=== PATIENT | male | born 1950 | race Caucasian/White ===

== ENCOUNTER 2017-02-16 14:52 | Emergency (ER) | payer MEDICARE ==
--- NOTE | 2017-02-16 16:49 | CT ---
BRAIN CT WITHOUT IV CONTRAST: 02/16/17 HISTORY: 66-year-old male with altered mental status, anxiousness and nervousness, agitated. Atrophy and chronic white matter ischemic changes are noted. No mass or midline shift. No intra or e xtra-axial hemorrhage. IMPRESSION: No acute intracranial process. Stable from prior 11/16/16. No mass or bleed. POS: [facility]
[2017-02-16 17:06] LABS: Acetaminophen Less than 6.0 mcg/mL (10.0-30.0); Salicylate Less than 8.0 mg/dL (15.0-30.0)
[2017-02-16 17:07] LABS: ALT (SGPT) 25 U/L (8-55); AST (SGOT) 33 U/L (5-34); Alkaline Phosphatase 72 U/L (40-150); Anion Gap 14 mmol/L (10-20); BUN (Urea Nitrogen) 15 mg/dL (8.4-25.7); Bilirubin, Total 0.6 mg/dL (0.2-1.2); CK (CPK) 153 U/L (30-200); Calc. Creatinine Clearance 0 mL/min (70-130); Carbon Dioxide 27 mmol/L (23-31); Chloride 98 mmol/L (98-107); Estimated GFR-MDRD 26; Globulin 3.2 g/dL (2.4-3.5)
[2017-02-16 17:12] LABS: #Eosinphils 0.1 thou/uL (0.0-0.7); #Lymphocytes 1.7 thou/uL (1.20-3.40); #Monocytes 0.7 thou/uL (0.11-0.59); #Neutrophils 8.2 thou/uL (1.40-6.50); %Basophils 0.4 % (0.0-1.0); %Eosinophils 1.1 % (0.0-10.0); %Lymphocytes 15.7 % (21.0-51.0); %Monocytes 6.3 % (0.0-10.0); Hematocrit 40.3 % (42.0-52.0); Mean Platelet Volume 6.4 fL (7.4-10.4); Red Blood Cell (RBC) Count 4.38 mill/uL (4.70-6.10); White Blood Cell (WBC) Count 10.8 thou/uL (4.8-10.8)
--- NOTE | 2017-02-27 14:19 | EKG ---
Test Reason : Blood Pressure : / mmHG Vent. Rate : 070 BPM Atrial Rate : 070 BPM P-R Int : 154 ms QRS Dur : 104 ms QT Int : 486 ms P-R-T Axes : 001 -19 046 degrees QTc Int : 524 ms Normal sinus rhythm Prolonged QT Abnormal ECG Confirmed by CHRISTEN MCKAY ([id number]), desk editor GIOVANNI PANG ([id number]) on 02/27/2017 2:19:14 PM Referred By: Confirmed By:CHRISTEN MCKAY
== END 2017-02-16 17:20 | disposition home or self-care (01) ==
LOC: ERS 14:52
DX: I12.0 Hypertensive chronic kidney disease with stage 5 chronic kidney disease or end stage renal disease (principal); E11.22 Type 2 diabetes mellitus with diabetic chronic kidney disease; N18.6 End stage renal disease; Z99.2 Dependence on renal dialysis; F41.9 Anxiety disorder, unspecified; F32.9 Major depressive disorder, single episode, unspecified; Z87.891 Personal history of nicotine dependence; Z79.82 Long term (current) use of aspirin; Z79.899 Other long term (current) drug therapy
CPT/HCPCS: 36415; 70450; 80053; 80307; 82550; 85025; 93005

== ENCOUNTER 2017-04-19 15:03 | Emergency (ER) | payer MEDICARE ==
[2017-04-19] MEDS ORDERED: Acetaminophen/Codeine 30-300mg Tablet ONE (15:44)
--- NOTE | 2017-04-19 17:54 | RAD ---
RADIOGRAPH LEFT HIP THREE VIEWS: Date: 04-19-2017 Time: 3:48 p.m. History: 66-year-old male status post acute traumatic hip pain due to fall. FINDINGS: There is a Anastacio's type dynamic compression screw fixating an old, healed, left intertrochanteric f racture, with sclerosis of the medial aspect of the intertrochanteric region. No definite acute fract ure is identified, but the osteopenia could mask a mildly displaced or nondisplaced acute fracture. T he compression screw is attached to a lateral metallic side plate with three screws fixating to the s ubtrochanteric femoral proximal diaphysis. Old healed fracture deformity of the left inferior ramus i s noted. No dislocation of the hip. Femoral head contour is normal. No high grade degenerative change s of the hip joint. IMPRESSION: 1. No displaced acute fracture or dislocation identified. 2. Osteopenia. 3. Status post open reduction internal fixation and dynamic compression screw fixation of old intertr ochanteric fracture. 4. Old healed left inferior ramus fracture. POS: [facility]
[2017-04-19] MEDS ORDERED: Fentanyl 100 MCG/2 ML VIAL ONE (18:11)
--- NOTE | 2017-04-19 18:21 | RAD ---
AP PELVIS: Indication: Mechanical fall with left hip pain. Comparison: 04-19-17 FINDINGS: There is hip screw and slide plate transfixing a healed left intertrochanteric fracture. There is hea led deformity involving the left inferior pubic ramus. There is diffuse osteopenia. There is mild to moderate degenerative arthrosis of both hips. There are prominent degenerative changes involving the lower lumbar spine. IMPRESSION: No acute osseous abnormality. POS: [facility]
[2017-04-19 19:28] LABS: #Basophils 0.1 thou/uL (0.0-0.2); #Eosinphils 0.2 thou/uL (0.0-0.7); #Monocytes 0.8 thou/uL (0.11-0.59); #Neutrophils 7.6 thou/uL (1.40-6.50); %Basophils 0.5 % (0.0-1.0); %Eosinophils 1.9 % (0.0-10.0); %Lymphocytes 18.8 % (21.0-51.0); %Neutrophils 71.7 % (42.0-75.0); Hemoglobin 12.4 g/dL (14.0-18.0); Mean Corpuscular Hemoglobin 31.8 pg (27.0-31.0); Mean Corpuscular Volume 93.6 fl (80.0-94.0); Mean Platelet Volume 7.3 fL (7.4-10.4); Platelet Count 172 thou/uL (130-400); RBC Distribution Width 12.8 % (11.5-14.5); White Blood Cell (WBC) Count 10.6 thou/uL (4.8-10.8)
[2017-04-19 19:35] LABS: Bilirubin Negative (Negative); Blood, Urine Trace (Negative); Clarity CLEAR (Clear); Glucose, Urine (Dipstick) 100 mg/dL (Negative); Leukocyte Negative (Negative); Nitrite Negative (Negative); Protein, Urine (Dipstick) 300 mg/dL (Neg-Trace); Specific Gravity, Urine 1.008 (1.002-1.036); Urobilinogen 0.2 mg/dL (0.2-1.0); pH, Urine 7.5 (5.0-9.0)
--- NOTE | 2017-04-19 19:37 | CT ---
CT PELVIS WITHOUT CONTRAST: Indication: History of fall with left hip pain. FINDINGS: There is a minimally displaced comminuted fracture involving the left ischial tuberosity. There is he aled deformity involving the left inferior pubic ramus. There is healed fixated fracture deformity in volving the left intertrochanteric region. There is diffuse osteopenia. No additional fracture is karina dent. There is scattered vascular calcification. There is moderate distention of the bladder. Prostat e is enlarged measuring 5.9 cm. IMPRESSION: 1. Minimally displaced left ischial tuberosity fracture. 2. Diffuse osteopenia. 3. 4.8 cm lipoma overlying the right hip. 4. Prostate enlargement. POS: [facility]
[2017-04-19 19:41] LABS: Bacteria/HPF None Seen HPF (None Seen); Hyaline Casts/LPF 0-3 HYALINE CAST LPF (0-3 Hyaline); Pathc Cast-AUWi Flag 0.13 (0-2.49); Squamous Epithelial None Seen HPF (0-3); WBC/HPF None Seen HPF (0-3)
[2017-04-19 19:50] LABS: ALT (SGPT) 30 U/L (8-55); AST (SGOT) 28 U/L (5-34); Albumin 3.2 g/dL (3.4-4.8); Alkaline Phosphatase 66 U/L (40-150); Anion Gap 16 mmol/L (10-20); BUN (Urea Nitrogen) 54 mg/dL (8.4-25.7); Bilirubin, Total 0.6 mg/dL (0.2-1.2); Calc. Creatinine Clearance 0 mL/min (70-130); Calcium 8.9 mg/dL (7.8-10.44); Carbon Dioxide 22 mmol/L (23-31); Chloride 93 mmol/L (98-107); Estimated GFR-MDRD 12; Globulin 2.9 g/dL (2.4-3.5); Glucose 128 mg/dL (80-115); Potassium 3.7 mmol/L (3.5-5.1); Protein, Total 6.1 g/dL (5.8-8.1); Sodium 127 mmol/L (136-145)
[2017-04-19] MEDS ORDERED: Ketorolac Tromethamine 30 MG/ML VIAL ONE (20:25)
--- NOTE | 2017-04-24 15:36 | EKG ---
Test Reason : Blood Pressure : / mmHG Vent. Rate : 071 BPM Atrial Rate : 071 BPM P-R Int : 160 ms QRS Dur : 112 ms QT Int : 444 ms P-R-T Axes : 016 010 047 degrees QTc Int : 482 ms Normal sinus rhythm Incomplete left bundle branch block Prolonged QT Abnormal ECG Confirmed by HARMONY ORR, LAVERN ([id number]), industrial editor JESUS BRENNAN ([id number]) on 04/24/2017 3:35:49 PM Referred By: Confirmed By:LAVERN ANTUNEZ MD
== END 2017-04-19 21:36 ==
LOC: ERS 15:03
DX: S32.602A Unspecified fracture of left ischium, initial encounter for closed fracture (principal); I69.398 Other sequelae of cerebral infarction; B19.20 Unspecified viral hepatitis C without hepatic coma; I12.0 Hypertensive chronic kidney disease with stage 5 chronic kidney disease or end stage renal disease; E11.22 Type 2 diabetes mellitus with diabetic chronic kidney disease; N18.6 End stage renal disease; F41.9 Anxiety disorder, unspecified; F32.9 Major depressive disorder, single episode, unspecified; Z79.82 Long term (current) use of aspirin; Z79.899 Other long term (current) drug therapy; Z99.2 Dependence on renal dialysis; Z87.891 Personal history of nicotine dependence; Z79.4 Long term (current) use of insulin; W10.9XXA Fall (on) (from) unspecified stairs and steps, initial encounter; Y92.009 Unspecified place in unspecified non-institutional (private) residence as the place of occurrence of the external cause
CPT/HCPCS: 36415; 72170; 72192; 80053; 81003; 81015; 85025; 93005; 96372; J1885; J3010

== ENCOUNTER 2017-04-25 13:01 | Inpatient (IN) | payer MEDICARE ==
--- NOTE | 2017-04-25 14:41 | RAD ---
TWO VIEW RIGHT HIP: INDICATIONS: Fall with pain. Injury. FINDINGS: There is a subcapital, mildly displaced proximal right hip fracture. There is limited evaluation of the pelvis due to patient rotation. Osseous irregularity of the superior right pubic ramus is sugges scottie, which is age indeterminate. There is also deformity, which is chronic appearing, at the inferio r left pubic ramus, although limited in assessment. IMPRESSION: 1. Subcapital right hip fracture. 2. Osseous irregularity of the bilateral pubic bones, incompletely assessed on the basis of this exa m. Recommend dedicated imaging followup. POS: [facility]
--- NOTE | 2017-04-25 14:45 | RAD ---
FRONTAL VIEW PELVIS: HISTORY: Fall. Injury. Pain. FINDINGS: A subcapital, mildly displaced right hip fracture is present. There is chronic appearing osseous irr egularity at the inferior left pubic ramus, limited by patient rotation. There is irregularity overl barbie the right pubic ramus, although this may relate to superimposition of bowel content and is somew hat distorted by patient rotation. There is stable left hip hardware. The left sacroiliac joint is not reliably visualized. No obvious diastasis of the right sacroiliac joint. IMPRESSION: 1. Subcapital right hip fracture. 2. Subtle irregularity of the superior right pubic ramus, incompletely assessed, as discussed above. 3. Stable chronic left hemipelvic osseous deformities with hardware within the proximal left femur. POS: [facility]
--- NOTE | 2017-04-25 14:52 | RAD ---
TWO VIEW CHEST: Indication: Pre-operative evaluation. FINDINGS: There is prominent edema suggested. Bilateral pleural effusions are seen. There is an enlarged cardio mediastinal silhouette. IMPRESSION: Decompensated CHF. Recommend follow up resolution prior to surgery. POS: [facility]
[2017-04-25 14:55] LABS: Anion Gap 17 mmol/L (10-20); BUN (Urea Nitrogen) 38 mg/dL (8.4-25.7); Calc. Creatinine Clearance 0 mL/min (70-130); Calcium 8.7 mg/dL (7.8-10.44); Carbon Dioxide 24 mmol/L (23-31); Chloride 91 mmol/L (98-107); Estimated GFR-MDRD 14; Glucose 158 mg/dL (80-115); Potassium 4.9 mmol/L (3.5-5.1); Sodium 127 mmol/L (136-145)
[2017-04-25 15:15] LABS: #Lymphocytes 0.8 thou/uL (1.20-3.40); #Monocytes 0.7 thou/uL (0.11-0.59); #Neutrophils 9.1 thou/uL (1.40-6.50); %Basophils 0.1 % (0.0-1.0); %Eosinophils 0.2 % (0.0-10.0); %Lymphocytes 7.1 % (21.0-51.0); %Monocytes 6.3 % (0.0-10.0); %Neutrophils 86.3 % (42.0-75.0); Hemoglobin 10.9 g/dL (14.0-18.0); Mean Corpuscular HGB CONC 33.2 g/dL (32.0-36.0); Mean Corpuscular Hemoglobin 31.6 pg (27.0-31.0); Mean Corpuscular Volume 95.3 fl (80.0-94.0); Mean Platelet Volume 8.1 fL (7.4-10.4); Platelet Count 158 thou/uL (130-400); RBC Distribution Width 12.9 % (11.5-14.5); Red Blood Cell (RBC) Count 3.46 mill/uL (4.70-6.10); White Blood Cell (WBC) Count 10.5 thou/uL (4.8-10.8)
[2017-04-25] MEDS ORDERED: Dextrose 5% in Water 1,000 ML IV PRN (16:16)
[2017-04-25] MEDS ORDERED: Ondansetron HCl/PF 4 MG/2 ML Vial IVP PRN (16:16)
[2017-04-25] MEDS ORDERED: HYDROcodone/Acetaminophen 10/325 mg Tablet PO PRN ×2 (16:16)
[2017-04-25] MEDS ORDERED: Ondansetron ODT 4 MG TAB PO PRN (16:16)
[2017-04-25] MEDS ORDERED: Dextrose 50% Abboject 50 ML SYRINGE SLOW IVP PRN (16:16)
[2017-04-25] MEDS ORDERED: HYDROcodone/Acetaminophen 5/325 mg Tablet ONE (16:18)
[2017-04-25] MEDS ORDERED: HYDROcodone/Acetaminophen 10/325 mg Tablet ONE ×2 (16:21)
[2017-04-25] MEDS ORDERED: Morphine 4 MG/ML VIAL SLOW IVP PRN (16:30)
[2017-04-25] MEDS ORDERED: Acetaminophen 1,000 MG in Premix Bag 1 BAG IVPB SCH ×2 (18:00→21:00)
--- NOTE | 2017-04-25 19:29 | HP ---
DATE OF ADMISSION: 04/25/2017 REQUESTING PHYSICIAN: Dr. Moreno. ATTENDING SURGEON: Dr. Xavier. CONSULTATION: Orthopedics, Dr. Lange. HISTORY OF PRESENT ILLNESS: The patient is a 66-year-old man who currently is at the [facility] for the past week after he had a fall and sustained a left ischial tuberosity fracture. The patient reportedly last night had a witnessed fall in which he landed on his right side. He was able to get himself back into bed without any assistance. This morning had significant more pain and was evaluated with a radiograph which showed a right femoral neck fracture at which time he was cleary sported to our facility for evaluation by our service and Orthopedics. The patient denied loss of co nsciousness or hitting his head. He has no other complaints other than he now has bilateral hip pain . ALLERGIES: MORPHINE, the patient is unsure of reaction, but he has received morphine in the past wit hout any issues. CURRENT MEDICATIONS: NovoLog, FlexPen, hydralazine, atorvastatin, aspirin, clonidine, quetiapine, bu spirone, gabapentin, amlodipine, latanoprost ophthalmology drops, lamotrigine, mirtazapine, propranol ol, Radnor, Flomax, Renvela, senna, lactulose, vitamin D, duloxetine, fenofibrate. 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 PAST SURGICAL HISTORY: The patient had open reduction internal fixation of right humerus and has had surgery on his left hip. SOCIAL HISTORY: The patient reports drinking rarely, smokes marijuana and is a former tobacco user. REVIEW OF SYSTEMS: A 10-point review of systems is negative unless otherwise stated. PHYSICAL EXAMINATION: VITAL SIGNS: Blood pressure 108/56, respirations 18, oxygen saturation is 94% on 2 liters via nasal cannula, pulse 72, temperature is 98.4. GENERAL: The patient is resting comfortably, he is actually sleeping. He will open his eyes and ans wers questions to verbal stimuli, follows simple commands. The patient does have slurred speech cons istent with his previous CVA and noted deficit. HEENT: Head is normocephalic, atraumatic. Eyes: Extraocular motion intact. PERRLA bilaterally. E ars are atraumatic without discharge. Nose is atraumatic without discharge. Oropharynx is clear. NECK: Nontender. Trachea is midline. No JVD. CHEST: Clear to auscultation bilaterally. HEART: Regular rate and rhythm. ABDOMEN: Soft, flat, nontender with active bowel sounds. Pelvis is stable with tenderness to palpat ion to bilateral hips, right greater than left. EXTREMITIES: Neurovascularly intact x4. BACK: By report, it is nontender and atraumatic. LABORATORY DATA: White blood cell count 10.5, hemoglobin 10.9, hematocrit 32.9, platelets 158. Sodi um 127, potassium 4.9, chloride 91, carbon dioxide 24, BUN 38, creatinine 4.39, glucose 158. RADIOGRAPHIC REPORTS: 1. AP chest shows decompensated CHF with bilateral pleural effusions. AP pelvis shows subcapital ri ght hip fracture. 2. Subtle irregularity of the right superior pubic rami fracture. 3. Stable chronic left hemipelvis, osseous deformity with hardware within the proximal left femur, 2 views of the right hip show a subcapital right hip fracture, #2 osseous regularity of the bilateral pubic bones. ASSESSMENT AND PLAN: 1. Status post ground level fall with a delayed presentation. 2. Right subcapital hip fracture. 3. End-stage renal disease. 4. Fluid overload, congestive heart failure, requiring dialysis. Plan will be to admit the patient to the surgical floor. We will discuss with Dr. Jaquez the possibilit y of getting him dialyzed today and we will plan surgery at that time. The evaluation and examinatio n were discussed and the patient was evaluated with Dr. Xavier.
[2017-04-25] MEDS: Morphine 4 MG/ML VIAL SLOW IVP PRN (20:26)
[2017-04-25] MEDS: Sodium Chloride 0.9% 1,000 ML IV SCH (20:26)
[2017-04-25] MEDS ORDERED: Famotidine 20 MG TAB PO SCH (21:00)
--- NOTE | 2017-04-25 23:47 | PRG ---
DATE OF SERVICE: 04/25/2017 SUBJECTIVE: Mr. Barron is hospital day #1 for admission after mechanical fall. He was found to hav e a right hip fracture. This patient was admitted earlier by our team. He has recently returned fro m dialysis. He is hemodynamically stable. He vocalized no complaint. RN at the bed side states isidro t there is some report of patient having tested positive for the flu; however, there is no evidence o f this in [facility]. The patient is afebrile at this time. He denies any signs or symptoms of the fl u, specifically fevers, chills, or body aches. We will continue to monitor. OBJECTIVE: VITAL SIGNS: Reviewed and stable. RESPIRATORY: Breathing is nonlabored. GENERAL: The patient is resting in bed, in no acute distress. ASSESSMENT AND PLAN: As documented in history and physical. Continue care as ordered. Continue to monitor.
[2017-04-25 23:57] VITALS: BMI 20.2
[2017-04-26] MEDS ORDERED: Acetaminophen 1,000 MG in Premix Bag 1 BAG IVPB SCH (03:00)
[2017-04-26] MEDS: Morphine 4 MG/ML VIAL SLOW IVP PRN (03:04)
[2017-04-26] MEDS: Sodium Chloride 0.9% 1,000 ML IV SCH ×2 (03:10→16:12)
[2017-04-26 05:35] LABS: #Monocytes 0.5 thou/uL (0.11-0.59); #Neutrophils 7.6 thou/uL (1.40-6.50); %Basophils 0.1 % (0.0-1.0); %Eosinophils 0.2 % (0.0-10.0); %Lymphocytes 10.7 % (21.0-51.0); %Monocytes 5.3 % (0.0-10.0); %Neutrophils 83.6 % (42.0-75.0); Hemoglobin 10.8 g/dL (14.0-18.0); Mean Corpuscular HGB CONC 32.2 g/dL (32.0-36.0); Mean Corpuscular Hemoglobin 30.9 pg (27.0-31.0); Mean Corpuscular Volume 95.7 fl (80.0-94.0); Mean Platelet Volume 7.9 fL (7.4-10.4); Platelet Count 178 thou/uL (130-400); RBC Distribution Width 12.9 % (11.5-14.5); Red Blood Cell (RBC) Count 3.49 mill/uL (4.70-6.10); White Blood Cell (WBC) Count 9.1 thou/uL (4.8-10.8)
--- NOTE | 2017-04-26 05:41 | CON ---
DATE OF CONSULTATION: 04/25/2017 CONSULTING PHYSICIAN: Mario Lopes M.D. REQUESTING PHYSICIAN: Rafael Xavier DO REASON FOR CONSULTATION: The need for hemodialysis. IMPRESSION: 1. End-stage renal disease, hemodialysis dependent, Wednesday, , and Wednesday schedule, dialyz ed yesterday, however, features on presentation suggestive of residual pulmonary congestion as well a s the need for consultation for possible hemodialysis prior to surgical intervention. 2. Right hip fracture status post fall. PLAN: 1. The patient is normally on a Wednesday, , Wednesday schedule. However, in order to optimize this patient for possible surgical intervention tomorrow, we will go ahead and do a modified hemodia lysis on this patient and lay emphasis on ultrafiltration to improve the pulmonary status. 2. To revert back to his normal schedule of Wednesday, , Wednesday. 3. Further management to be dependent on the clinical course. HISTORY OF PRESENT ILLNESS: History is that of a 66-year-old gentleman who is currently rehabilitati ng at [facility] post fall at home during which he sustained ischial tuberosity fracture. patient was dialyzed yesterday; however, later in the day, the patient did sustain a witnessed fall for which the patient relatively did okay, but this morning was noted with increasing pain following presentation in the ER where a right femoral neck fracture was diagnosed. The patient on further ev aluation by the Trauma team was noted to have evidence of pulmonary congestion and the need for possi ble surgical intervention tomorrow necessitated the renal consultation for possible hemodialysis. PAST MEDICAL HISTORY: Significant for end-stage renal disease, hemodialysis dependent, fracture seco ndary to fall, hepatitis C, diabetes, hypertension, anxiety, and depression. ALLERGIES: MORPHINE. MEDICATIONS: Have been reviewed and as documented on [employer]. FAMILY HISTORY: Nothing significantly related to the presenting illness. SOCIAL HISTORY: Remote tobacco use. Smokes marijuana, no alcohol or illicit drug use. PHYSICAL EXAMINATION: GENERAL: The patient was found to be in some physical distress. VITAL SIGNS: Noted with the following vital signs: Blood pressure 108/56, respiratory rate of 18, O 2 sat 94%, pulse 70. HEENT: Unremarkable. Moist oral mucosa. NECK: Supple. No conjunctival injection or icterus. CARDIOVASCULAR SYSTEM: First and second heart sounds were heard. RESPIRATORY SYSTEM: Clear to auscultation. DIGESTIVE SYSTEM: Revealed a benign abdomen with positive bowel sounds. EXTREMITIES: No peripheral edema. SKIN: No new gross rash. LYMPHATICS: No peripheral lymphadenopathy. SUMMARY: A 66-year-old gentleman who presented here status post a mechanical fall. Thank you for this consultation. We will follow with you.
[2017-04-26 06:04] LABS: Anion Gap 19 mmol/L (10-20); BUN (Urea Nitrogen) 47 mg/dL (8.4-25.7); Calc. Creatinine Clearance 14 mL/min (70-130); Calcium 8.7 mg/dL (7.8-10.44); Carbon Dioxide 22 mmol/L (23-31); Chloride 91 mmol/L (98-107); Estimated GFR-MDRD 12; Glucose 130 mg/dL (80-115); Magnesium 2.2 mg/dL (1.6-2.6); Phosphorus 4.3 mg/dL (2.3-4.7); Potassium 4.6 mmol/L (3.5-5.1); Sodium 127 mmol/L (136-145)
[2017-04-26] MEDS ORDERED: CEFAZOLIN/Water 2 GM/20 ML SYRINGE SLOW IVP SCH (06:30)
[2017-04-26] MEDS ORDERED: Fentanyl 100 MCG/2 ML VIAL ONE ×2 (13:18)
[2017-04-26] MEDS ORDERED: Midazolam HCl 2 mg/2 ml Vial ONE (13:18)
[2017-04-26] MEDS ORDERED: Neomycin-Polymyxin 1 ML AMP ONE ×2 (13:19)
--- NOTE | 2017-04-26 13:21 | CON ---
DATE OF CONSULTATION: 04/26/2017 HISTORY OF PRESENT ILLNESS: Mr. Barron is a 76-year-old white male who had a fall and sustained a l eft ischial tuberosity fracture and was [facility]. The patient had a fall prior to admission and had immediate pain in the right hip region. The patient denied lo ss of consciousness or hitting his head. He has no neurologic complaints in the right lower extremit y. He was brought to the emergency room and x-rays revealed a displaced subcapital femoral neck frac ture of the right hip. ALLERGIES: MORPHINE. MEDICATIONS: NovoLog FlexPen, atorvastatin, aspirin, clonidine, quetiapine, buspirone, gabapentin, a mlodipine, latanoprost ophthalmic drops, propranolol, Casar, Flomax, Renvela, Senna, Lactulose, vitam in D, fluoxetine, fenofibrate. PAST MEDICAL HISTORY: The patient has had a stroke. There is a history of hepatitis C. He had a fr acture of the left hip required ORIF, fracture of the right shoulder, diabetes, hypertension, end-sta ge renal disease. The patient does dialysis 3 times a week. Anxiety and depression. PHYSICAL EXAMINATION: GENERAL: The patient is alert and oriented x3, able to participate with the examination. VITAL SIGNS: He is afebrile. Vital signs are stable. EXTREMITIES: The patient has pain with any attempted movement of the right hip. The right lower ext remity is neurovascularly intact. I reviewed the x-rays. The patient does have a displaced subcapital femoral neck fracture of the rig ht hip. PLAN: The patient will require proximal femoral replacement. We plan on using a bipolar prosthesis to the right hip. The potential risks with the condition of surgery include, but are not limited to infection, bleeding, pain, damage to blood vessels or nerves, loosening or instability of the prosthe sis. The patient may require additional surgery. The patient agrees.
[2017-04-26] MEDS ORDERED: CEFAZOLIN/Water 2 GM/20 ML SYRINGE ONE (13:25)
--- NOTE | 2017-04-26 14:32 | PRG ---
DATE OF SERVICE: 04/26/2017 SUBJECTIVE: The patient is hospital day #2 status post ground level fall in which he sustained a rig ht subcapital hip fracture. The patient has been n.p.o. since midnight and is awaiting surgery. The re was an issue, currently the patient refuses to sign his consent for surgery. He will give verbal consent, but he will not sign the paper consent unless his primary care doctor, Dr. Sinclair tells him h e needs to sign it. This was discussed with Dr. Lange and the nurses will continue to try to conta ct Dr. Sinclair to see if he can assist us in this endeavor. Otherwise, the patient has no complaints. His pain is currently controlled. The patient underwent a modified dialysis yesterday per our request to Nephrology in order to lessen the fluid load on the patient's system. Specifically, his chest x-ray last night showed some pulmona ry congestion. It should be able to optimize his surgical outcome and also allow him to continue on his normal dialysis regimen. PHYSICAL EXAMINATION: VITAL SIGNS: Temperature is 97.8, heart rate 96, blood pressure 132/64, respirations 16, oxygen satu ration is 96% on room air. GENERAL: The patient is awake, alert, and appears to be oriented, though he is definitely not wantin g to sign his paperwork. His [place] coma scale is 15. HEENT: Unremarkable other than his baseline slurred speech secondary to CVA. NECK: Nontender. Trachea is midline. No JVD. CHEST: Clear to auscultation bilaterally. HEART: Regular rate and rhythm. ABDOMEN: Soft, flat, and nontender. EXTREMITIES: Neurovascularly intact x4. Patient has minimal peripheral edema. LABORATORY DATA AND IMAGING DATA: White blood cell count 9.1, hemoglobin 10.8, hematocrit 33.4, plat elets 178. Chemistry: Sodium 127, potassium 4.6, chloride 191, CO2 22, BUN 47, creatinine 4.91, glu cose 130, magnesium 2.2, phosphorus 4.3. There are no radiographs to review this morning. ASSESSMENT AND PLAN: 1. Status post ground level fall. 2. Right hip fracture. 3. Hyponatremia. 4. Chronic renal disease. Plan will be continue dialysis regimen. We will attempt to get consent for his surgical procedure. Otherwise, we will continue pain control and attempt physical and occupational therapy per ortho teresa mmendations.
[2017-04-26] MEDS ORDERED: Bupivacaine/Epinephrine 0.25% 30 ML VIAL ONE (14:47)
[2017-04-26] MEDS ORDERED: Promethazine HCl 25 MG/ML VIAL IM PRN (15:07)
[2017-04-26] MEDS ORDERED: Promethazine HCl 25 MG/ML VIAL SLOW IVP PRN (15:07)
[2017-04-26] MEDS ORDERED: Ondansetron HCl/PF 4 MG/2 ML Vial IVP PRN ×2 (15:07→16:41)
[2017-04-26] MEDS: Famotidine 20 MG TAB PO SCH (16:12)
[2017-04-26] MEDS ORDERED: HYDROcodone/Acetaminophen 10/325 mg Tablet PO PRN (16:40)
[2017-04-26] MEDS ORDERED: Milk Of Magnesia 30 ML UDCUP PO PRN (16:41)
[2017-04-26] MEDS ORDERED: Fleet Enema 133 ML BOT PR PRN (16:41)
[2017-04-26] MEDS ORDERED: Acetaminophen 325 MG TAB PO PRN (16:41)
[2017-04-26] MEDS ORDERED: Cepastat Lozenges 1 LOZ PO PRN (16:41)
[2017-04-26] MEDS ORDERED: Bisacodyl 10 MG SUPP PR PRN (16:41)
[2017-04-26] MEDS ORDERED: Ondansetron ODT 4 MG TAB PO PRN (16:41)
[2017-04-26] MEDS ORDERED: Fentanyl 100 MCG/2 ML VIAL SLOW IVP PRN (16:41)
[2017-04-26] MEDS ORDERED: PHENYLEPHRINE-NS 100 MCG/ML 10 ML SYRINGE ONE (16:42)
[2017-04-26] MEDS ORDERED: Lidocaine 1% PF 5 ML VIAL ONE (16:42)
[2017-04-26] MEDS ORDERED: PROPOFOL 200 MG/20 ML VIAL ONE (16:42)
[2017-04-26] MEDS ORDERED: Glycopyrrolate 0.2 MG/ML 5 ML SYRINGE ONE (16:42)
[2017-04-26 18:13] LABS: Actual Bicarbonate (HCO3a) 23.2 mEq/L (22-26); Base Excess (BEa) -2.9 mEq/L (0 (+/-) 2.5); CO2 Tension 45.8 mmHg (35.0-45.0); Calcium, Ionized 1.1 mmol/L (1.12-1.30); Hematocrit-ABG 36.8 % (42.0-52.0); Hemoglobin (Hb) 10.7 g/dL (14.0-18.0); O2 Tension (PaO2) 80.9 mmHg (80.0-100.0); pH, Arterial 7.32 (7.35-7.45)
[2017-04-26 18:14] LABS: Puncture Site LRA
--- NOTE | 2017-04-26 20:36 | OP ---
DATE OF OPERATION: 04/26/2017 PREOPERATIVE DIAGNOSIS: Displaced subcapital femoral neck fracture of the right hip. POSTOPERATIVE DIAGNOSIS: Displaced subcapital femoral neck fracture of the right hip. PROCEDURE: Proximal femoral replacement utilizing a bipolar prosthesis. SURGEON: Narendra Lange M.D. ANESTHESIA: General. TECHNIQUE: The patient was given preoperative IV antibiotics, taken to the operating room, placed in the supine position. Satisfactory general anesthesia was performed. The patient was then placed in the left lateral decubitus position. All bony prominences were well-padded and the right hip and lo wer extremity were sterilely prepped and draped in the usual fashion. Longitudinal incision was made on the lateral aspect of the hip, centered over the greater trochanter, and anterolateral approach w as made to the hip joint. The anterior capsule was excised and an oscillating saw was used to make a dditional cut on the femoral neck that was completely broken off and displaced from the femoral head. The femoral head was then removed. It was measured and it was 54 mm in diameter. The posterior ca psule was divided. The loose bony fragments were removed from the acetabulum and around the hip join t. The wound was then copiously irrigated with antibiotic solution using the high-speed comfort filler. The proximal aspect of the femur was then prepared using first a box osteotome and Charnley reamer, t hen lateralizing. industrial recruiter was used up to a size 6 as measured by the [employer] instrumentat ion. The proximal femur was then rasped up to initially a size 5, this was left in place, and calcar reamer was utilized and different length necks were used, the best neck length was +1.5 with a 28 mm head and a 54 mm bipolar. This provided good church of leg length and good stability when ady ving the trial though the proximal aspect of the femur was not well fitted with the 5 and 6 was there fore inserted and again reduced. It had much better stability and good maintenance of leg length. A gain, the wound was irrigated. The trials were removed. The Synthes size 6 [place] femoral stem whic h was basic press fit was inserted into the proximal femur at excellent fit. The +1.5 neck with the 28 mm femoral head and then the 54 mm bipolar head was snapped in position. It was then reduced into the acetabulum and again placed through a range of motion with excellent stability and range of waldemar on. The wound again was copiously irrigated and then closed using #1 Vicryl for the anterior fibers of the abductor muscle, #1 Vicryl for the iliotibial band and subcutaneous tissue, and the skin was c losed with skin jomar. Sterile dressing was applied. The patient eventually was then transferred to the recovery room in stable condition. ESTIMATED BLOOD LOSS: 200 mL COMPLICATIONS: None.
[2017-04-26] MEDS: Acetaminophen 500 MG TAB PO SCH (21:27)
[2017-04-26] MEDS: cloNIDine 0.1 MG TAB PO SCH (21:28)
[2017-04-26] MEDS: Aspirin 325 MG TAB PO SCH (21:29)
[2017-04-26] MEDS: Gabapentin 300 MG CAP PO SCH (21:29)
[2017-04-26] MEDS: Senokot S 8.6-50 MG TAB PO SCH (21:29)
[2017-04-26] MEDS: busPIRone HCl 5 MG TAB PO SCH (21:29)
[2017-04-26] MEDS: Mirtazapine 15 MG TAB PO SCH (21:30)
[2017-04-26] MEDS: hydrALAZINE 25 MG TAB PO SCH (21:31)
[2017-04-26] MEDS: Ferrous Gluconate 324 MG TAB PO SCH (21:31)
--- NOTE | 2017-04-26 21:32 | PRG ---
DATE OF SERVICE: 04/26/2017 SUBJECTIVE: Kyle Barron is a 66-year-old gentleman status post mechanical fall, postop day 0 hip fracture repair. He has multiple medical comorbidities. He has recently returned to the surgical fl oor from the anesthesia care unit. He vocalized no complaint at this time. PHYSICAL EXAMINATION: VITAL SIGNS: Reviewed and stable. The patient is on 2 liters nasal cannula. Last oxygen saturation 98%. He is resting in bed in no acute distress. LUNGS: Breathing is nonlabored. ASSESSMENT AND PLAN: As documented in daily progress note. Continue care as ordered. Continue to m onitor. Postoperative pain management, PT/OT, and eventual disposition. HD per Nephrology.
[2017-04-26] MEDS: CEFAZOLIN/Water 2 GM/20 ML SYRINGE SLOW IVP SCH (21:33)
[2017-04-26] MEDS: Latanoprost 0.005% Ophth Soln 2.5 ml Bottle EA EYE SCH (22:15)
[2017-04-27] MEDS: traMADol HCl 50 MG TAB PO PRN ×3 (00:32→23:44)
[2017-04-27] MEDS: Acetaminophen 500 MG TAB PO SCH ×4 (03:25→21:12)
[2017-04-27] MEDS: CEFAZOLIN/Water 2 GM/20 ML SYRINGE SLOW IVP SCH (05:59)
[2017-04-27 06:59] LABS: Mean Corpuscular HGB CONC 32.1 g/dL (32.0-36.0); Mean Corpuscular Hemoglobin 30.4 pg (27.0-31.0); Mean Corpuscular Volume 94.9 fl (80.0-94.0); Mean Platelet Volume 7.7 fL (7.4-10.4); Platelet Count 196 thou/uL (130-400); Red Blood Cell (RBC) Count 3.29 mill/uL (4.70-6.10); White Blood Cell (WBC) Count 6.5 thou/uL (4.8-10.8)
[2017-04-27 07:20] LABS: Anion Gap 16 mmol/L (10-20); BUN (Urea Nitrogen) 55 mg/dL (8.4-25.7); Calc. Creatinine Clearance 12 mL/min (70-130); Calcium 8.5 mg/dL (7.8-10.44); Carbon Dioxide 23 mmol/L (23-31); Chloride 93 mmol/L (98-107); Estimated GFR-MDRD 9; Glucose 100 mg/dL (80-115); Potassium 4.5 mmol/L (3.5-5.1); Sodium 127 mmol/L (136-145)
[2017-04-27] MEDS: Sevelamer Carbonate 800 MG TAB PO SCH ×3 (08:34→17:09)
[2017-04-27] MEDS ORDERED: Senokot 8.6 MG TAB PO SCH (09:00)
[2017-04-27] MEDS: Ferrous Gluconate 324 MG TAB PO SCH ×2 (09:58→21:08)
[2017-04-27] MEDS: cloNIDine 0.1 MG TAB PO SCH ×2 (09:58→21:08)
[2017-04-27] MEDS: Aspirin 325 MG TAB PO SCH ×2 (09:58→21:06)
[2017-04-27] MEDS: busPIRone HCl 5 MG TAB PO SCH ×2 (09:58→21:07)
[2017-04-27] MEDS: Senokot S 8.6-50 MG TAB PO SCH ×2 (09:59→21:11)
[2017-04-27] MEDS: Gabapentin 300 MG CAP PO SCH ×2 (09:59→21:08)
[2017-04-27] MEDS: hydrALAZINE 25 MG TAB PO SCH ×3 (09:59→21:09)
[2017-04-27] MEDS: Amlodipine 10 MG TAB PO SCH (13:59)
[2017-04-27] MEDS: Atorvastatin Calcium 20 MG TAB PO SCH (14:00)
[2017-04-27] MEDS: Fenofibrate 48 MG TAB PO SCH (14:01)
[2017-04-27] MEDS: Famotidine 20 MG TAB PO SCH (14:01)
[2017-04-27] MEDS: DULoxetine 30 MG CAP PO SCH (14:01)
[2017-04-27] MEDS: HumaLOG 300 UNITS/3 ML VIAL SC SCH (14:01)
[2017-04-27] MEDS: lamoTRIgine 25 MG TAB PO SCH (14:02)
[2017-04-27] MEDS: Multivitamin W/ Minerals 1 TAB PO SCH (14:02)
[2017-04-27] MEDS: Tamsulosin HCl 0.4 MG CAP PO SCH (14:02)
[2017-04-27] MEDS: Insulin Regular 300 UNITS/3 ML VIAL SC PRN (17:09)
--- NOTE | 2017-04-27 19:02 | PRG ---
DATE OF SERVICE: 04/27/2017 ATTENDING PHYSICIAN: Rafael Xavier D.O. SUBJECTIVE: The patient is postoperative day #1 status post ORIF of right hip fracture. He has been stable on the surgical floor. He received his normal scheduled dialysis today. He has had a bedside sitter due to impulsiveness. OBJECTIVE: VITAL SIGNS: Temperature 98.8, pulse 85, blood pressure 133/60, respirations 16 , O2 sat 95% on room air. CONSTITUTIONAL: Sitting up in bed in no acute distress, appropriately interactive. HEENT: Atraumatic, normocephalic. PULMONARY: Bilateral breath sounds clear to auscultation. RESPIRATORY: Even unlabored. CARDIOVASCULAR: Regular rate and rhythm. ABDOMEN: Soft, nontender, and nondistended. EXTREMITIES: Dressing in place to right hip. Moves all extremities. Cap refill brisk. NEUROLOGIC: GCS 15. Answers questions correctly. Still with some inappropriate words at times and impulsive behavior. ASSESSMENT: 1. Status post ground level fall. 2. Right hip fracture. 3. Hyponatremia. 4. End-stage renal disease on dialysis. 5. Status post open reduction and internal fixation of right hip. PLAN: 1. Continue mobilizing with physical and occupational therapy. 2. Continue recommendations per Nephrology Service. 3. Repeat labs in a.m. The patient was discussed with Dr. Xavier who agrees with the assessment and plan. [facility]
--- NOTE | 2017-04-27 20:42 | PRG ---
DATE OF SERVICE: 04/27/2017 SUBJECTIVE: The patient is seen and examined with no new complaint noted. PHYSICAL EXAMINATION: VITAL SIGNS: Afebrile with temperature 98.8, pulse 85, respiratory rate 16, O2 sat 95%, blood pressu re 132/60. HEENT: Unremarkable with moist oral mucosa. Neck is supple. No conjunctival injection or icterus. CARDIOVASCULAR: First and second heart sounds were heard. RESPIRATORY: Clear to auscultation. DIGESTIVE: Revealed a benign abdomen with positive bowel sounds. EXTREMITIES: No peripheral edema. LABORATORY INVESTIGATION: Showed sodium of 127, creatinine 6.11. IMPRESSION: 1. End-stage renal disease, on hemodialysis. 2. Hyponatremia. 3. Hypervolemia. PLAN: 1. Patient dialyzed today with ultrafiltration of about 5 liters. 2. Further management including pain management is per the primary team.
[2017-04-27] MEDS: Latanoprost 0.005% Ophth Soln 2.5 ml Bottle EA EYE SCH (21:10)
[2017-04-27] MEDS: Mirtazapine 15 MG TAB PO SCH (21:10)
[2017-04-28] MEDS: Acetaminophen 500 MG TAB PO SCH ×4 (03:51→21:11)
[2017-04-28 06:01] LABS: Hemoglobin 10.6 g/dL (14.0-18.0); Mean Corpuscular HGB CONC 33.6 g/dL (32.0-36.0); Mean Corpuscular Hemoglobin 31.7 pg (27.0-31.0); Mean Corpuscular Volume 94.5 fl (80.0-94.0); Mean Platelet Volume 7.2 fL (7.4-10.4); Platelet Count 209 thou/uL (130-400); RBC Distribution Width 12.6 % (11.5-14.5); Red Blood Cell (RBC) Count 3.33 mill/uL (4.70-6.10); White Blood Cell (WBC) Count 7.2 thou/uL (4.8-10.8)
[2017-04-28 06:16] LABS: Anion Gap 14 mmol/L (10-20); BUN (Urea Nitrogen) 27 mg/dL (8.4-25.7); Calc. Creatinine Clearance 18 mL/min (70-130); Calcium 8.2 mg/dL (7.8-10.44); Carbon Dioxide 24 mmol/L (23-31); Chloride 92 mmol/L (98-107); Estimated GFR-MDRD 16; Glucose 168 mg/dL (80-115); Potassium 4.3 mmol/L (3.5-5.1); Sodium 126 mmol/L (136-145)
[2017-04-28] MEDS: Sevelamer Carbonate 800 MG TAB PO SCH ×3 (07:19→16:19)
[2017-04-28] MEDS: Amlodipine 10 MG TAB PO SCH (09:47)
[2017-04-28] MEDS: Atorvastatin Calcium 20 MG TAB PO SCH (09:48)
[2017-04-28] MEDS: Aspirin 325 MG TAB PO SCH ×2 (09:48→21:11)
[2017-04-28] MEDS: DULoxetine 30 MG CAP PO SCH (09:49)
[2017-04-28] MEDS: Senokot S 8.6-50 MG TAB PO SCH ×2 (09:49→21:10)
[2017-04-28] MEDS: cloNIDine 0.1 MG TAB PO SCH ×2 (09:49→21:09)
[2017-04-28] MEDS: Famotidine 20 MG TAB PO SCH (09:49)
[2017-04-28] MEDS: hydrALAZINE 25 MG TAB PO SCH ×3 (09:50→21:08)
[2017-04-28] MEDS: Multivitamin W/ Minerals 1 TAB PO SCH (09:50)
[2017-04-28] MEDS: Fenofibrate 48 MG TAB PO SCH (09:50)
[2017-04-28] MEDS: Gabapentin 300 MG CAP PO SCH ×2 (09:50→21:09)
[2017-04-28] MEDS: lamoTRIgine 25 MG TAB PO SCH (09:50)
[2017-04-28] MEDS: Ferrous Gluconate 324 MG TAB PO SCH ×2 (09:50→21:10)
[2017-04-28] MEDS: Tamsulosin HCl 0.4 MG CAP PO SCH (09:50)
[2017-04-28] MEDS: Insulin Regular 300 UNITS/3 ML VIAL SC PRN (09:51)
[2017-04-28] MEDS: HumaLOG 300 UNITS/3 ML VIAL SC SCH (10:03)
[2017-04-28] MEDS: busPIRone HCl 5 MG TAB PO SCH ×2 (11:12→21:09)
--- NOTE | 2017-04-28 13:02 | PRG ---
DATE OF SERVICE: 04/28/2017 ATTENDING PHYSICIAN: Rafael Xavier D.O. This is Kellie Quick, nurse practitioner, dictating a daily progress note for Dr. Rafael Xavier. SUBJECTIVE: The patient is postoperative day #2 status post ORIF of right hip fracture. He received his scheduled dialysis yesterday. He reports pain is well controlled. Impulsiveness has improved today. OBJECTIVE: VITAL SIGNS: Temperature 98 10, pulse 76, blood pressure 134/83, respirations 16, O2 sat 96% on room air. HEENT: Atraumatic, normocephalic. PULMONARY: Respirations even, unlabored. CARDIOVASCULAR: Regular rate and rhythm. ABDOMEN: Soft, nontender, nondistended. EXTREMITIES: Moves all extremities well. Cap refill brisk. Neurovascularly intact. NEUROLOGIC: GCS is 15. PSYCHIATRIC: A and O x3. ASSESSMENT: 1. Status post ground level fall. 2. Right hip fracture. 3. Status post open reduction and internal fixation of right hip. 4. Hyponatremia. 5. End-stage renal disease, on dialysis. PLAN: 1. Continue mobilizing with physical and occupational therapy. 2. Continue recommendations and correction of electrolytes per Nephrology Service. 3. Patient tested positive for flu on 04/23/2016 in [facility]. He was treated at that time. He has been afebrile since he has been admitted to the hospital. He will still require droplet precaution isolation per hospital protocol and may be discontinued per protocol. The patient was seen and examined with Dr. Xavier, who agrees with the assessment and plan. [facility] DIVISIONNikhil
[2017-04-28] MEDS: Mirtazapine 15 MG TAB PO SCH (21:10)
[2017-04-28] MEDS: Latanoprost 0.005% Ophth Soln 2.5 ml Bottle EA EYE SCH (21:12)
--- NOTE | 2017-04-28 21:39 | PRG ---
DATE OF SERVICE: 04/28/2017 Mr. Barron was able to get up with therapy and walked to his room door and back. He reports that he did fairly well. He has very little pain and I was not able to see him yesterday since he was in di alysis. PHYSICAL EXAMINATION: VITAL SIGNS: The patient has been afebrile, pulse 76, blood pressure 134/83, respiratory rate 16, O2 saturation 96 on room air. Dressing over the right hip was removed and incision is healing very well. There is mild swelling, n o erythema, no drainage and just mild bruising in the mid portion of the wound. The patient is able to dorsiflex and plantarflex the ankle and has good flexion, extension of his toes. PLAN: The patient is making good progress with his right bipolar prosthesis. He will continue with physical and occupational therapy. Plans are for him to go to [facility] when he is discharged from the hospital.
--- NOTE | 2017-04-29 01:52 | PRG ---
DATE OF SERVICE: 04/28/2017 SUBJECTIVE: The patient was seen and examined and noted with the following vital signs. OBJECTIVE: VITAL SIGNS: Afebrile with temperature 98, pulse 70, respiratory rate of 20, O2 sat on 95% with a bl ood pressure of 132/66. HEENT: Unremarkable. Moist oral mucosa. Neck was supple. No conjunctival injection or icterus. CARDIOVASCULAR SYSTEM: First and second heart sounds were heard. RESPIRATORY SYSTEM: Clear to auscultation. DIGESTIVE SYSTEM: Revealed a benign abdomen with positive bowel sounds. EXTREMITIES: No peripheral edema. SKIN: No new gross rash. LYMPHATICS: No peripheral lymphadenopathy. LABORATORY INVESTIGATION: Showed a hemoglobin of 10.6. Chemistry showed a sodium of 126, creatinine 3.88, BUN of 27. IMPRESSION: 1. End-stage renal disease, hemodialysis dependent. 2. Hyponatremia. 3. Anemia, very stable. PLAN: 1. The patient to continue with hemodialysis as per already scheduled. 2. We will suggest not drawing blood on daily basis to avoid iatrogenic anemia. 3. Further management will be dependent on the clinical course.
[2017-04-29] MEDS: Acetaminophen 500 MG TAB PO SCH ×4 (02:31→21:31)
[2017-04-29] MEDS: traMADol HCl 50 MG TAB PO PRN ×3 (02:32→21:31)
[2017-04-29 05:43] LABS: Hemoglobin 10.7 g/dL (14.0-18.0); Mean Corpuscular HGB CONC 33.6 g/dL (32.0-36.0); Mean Corpuscular Hemoglobin 31.6 pg (27.0-31.0); Mean Corpuscular Volume 94.1 fl (80.0-94.0); Mean Platelet Volume 6.7 fL (7.4-10.4); Platelet Count 241 thou/uL (130-400); RBC Distribution Width 12.8 % (11.5-14.5); Red Blood Cell (RBC) Count 3.38 mill/uL (4.70-6.10); White Blood Cell (WBC) Count 9.1 thou/uL (4.8-10.8)
[2017-04-29 05:57] LABS: Anion Gap 12 mmol/L (10-20); BUN (Urea Nitrogen) 43 mg/dL (8.4-25.7); Calc. Creatinine Clearance 14 mL/min (70-130); Calcium 8.2 mg/dL (7.8-10.44); Carbon Dioxide 27 mmol/L (23-31); Chloride 90 mmol/L (98-107); Estimated GFR-MDRD 12; Glucose 166 mg/dL (80-115); Potassium 4.4 mmol/L (3.5-5.1); Sodium 125 mmol/L (136-145)
[2017-04-29] MEDS: cloNIDine 0.1 MG TAB PO SCH ×2 (14:18→21:29)
[2017-04-29] MEDS: Sevelamer Carbonate 800 MG TAB PO SCH ×3 (14:18→18:04)
[2017-04-29] MEDS: Aspirin 325 MG TAB PO SCH ×2 (14:18→21:31)
[2017-04-29] MEDS: busPIRone HCl 5 MG TAB PO SCH ×2 (14:18→21:32)
[2017-04-29] MEDS: Gabapentin 300 MG CAP PO SCH ×2 (14:19→21:32)
[2017-04-29] MEDS: Ferrous Gluconate 324 MG TAB PO SCH ×2 (14:19→21:33)
[2017-04-29] MEDS: Senokot S 8.6-50 MG TAB PO SCH ×2 (14:20→21:33)
[2017-04-29] MEDS: hydrALAZINE 25 MG TAB PO SCH ×3 (14:20→21:33)
[2017-04-29] MEDS: HumaLOG 300 UNITS/3 ML VIAL SC SCH (14:50)
[2017-04-29] MEDS: DULoxetine 30 MG CAP PO SCH (14:55)
[2017-04-29] MEDS: Tamsulosin HCl 0.4 MG CAP PO SCH (14:55)
[2017-04-29] MEDS: Famotidine 20 MG TAB PO SCH (14:55)
[2017-04-29] MEDS: Fenofibrate 48 MG TAB PO SCH (14:56)
[2017-04-29] MEDS: Multivitamin W/ Minerals 1 TAB PO SCH (14:56)
[2017-04-29] MEDS: Atorvastatin Calcium 20 MG TAB PO SCH (14:56)
[2017-04-29] MEDS: lamoTRIgine 25 MG TAB PO SCH (15:18)
[2017-04-29] MEDS: Amlodipine 10 MG TAB PO SCH (15:23)
--- NOTE | 2017-04-29 20:44 | PRG ---
DATE OF SERVICE: 04/29/2017 ATTENDING PHYSICIAN: Rafael Xavier DO SUBJECTIVE: The patient is postop day #3 status post ORIF of right hip fracture. He received his scheduled dialysis today. He reports pain is well controlled. He is eating a regular diet and has been stable on the surgical floor. OBJECTIVE: VITAL SIGNS: Temperature 98.1, pulse 71, respirations 18, O2 sat 97% on room air, blood pressure 139/56. HEENT: Atraumatic, normocephalic. PULMONARY: Respirations even, unlabored, no acute distress. LUNGS: Bilateral breath sounds clear. CARDIOVASCULAR: Regular rate and rhythm. Heart sounds normal. ABDOMEN: Soft, nontender, nondistended. EXTREMITIES: Moves all extremities well. Cap refill brisk. Neurovascularly intact. NEUROLOGIC: GCS is 15. A and O x3. ASSESSMENT: 1. Status post ground level fall. 2. Right hip fracture. 3. Status post open reduction internal fixation of right hip. 4. Hyponatremia. 5. End-stage renal disease on hemodialysis. PLAN: 1. Continue mobilizing with physical and occupational therapy. 2. Continue recommendations and correction of electrolytes per Nephrology Service. 3. The patient tested positive for flu on 04/23/2016. He was treated at that time. He will be on droplet isolation per hospital protocol. 4. Patient is cleared by Orthopedics to discharge to [facility] when he has accepted and bed is available. The patient was seen and examined with Dr. Xavier who agrees with the assessment and plan. This is Kellie Quick NP, dictating for Rafael Xavier DO [facility] CENTERNikhil
[2017-04-29] MEDS: Mirtazapine 15 MG TAB PO SCH (21:32)
[2017-04-29] MEDS: Latanoprost 0.005% Ophth Soln 2.5 ml Bottle EA EYE SCH (21:34)
[2017-04-29] MEDS: Insulin Regular 300 UNITS/3 ML VIAL SC PRN (21:38)
[2017-04-30] MEDS: Acetaminophen 500 MG TAB PO SCH ×4 (03:33→20:43)
[2017-04-30] MEDS: traMADol HCl 50 MG TAB PO PRN ×3 (05:41→19:31)
--- NOTE | 2017-04-30 06:05 | PRG ---
DATE OF SERVICE: 04/29/2017 OBJECTIVE: Patient noted with the following vital signs. VITAL SIGNS: Afebrile, temperature 98.1, pulse 74, blood pressure 128/65, respiratory rate 18, O2 sa t 97%. HEENT: Unremarkable with moist oral mucosa. NECK: Supple. No conjunctival injection or icterus. CARDIOVASCULAR SYSTEM: First and second heart sounds were heard. RESPIRATORY SYSTEM: Clear to auscultation. DIGESTIVE SYSTEM: Revealed a benign abdomen with positive bowel sounds. EXTREMITIES: No peripheral edema. SKIN: No new gross rash. LYMPHATICS: No peripheral lymphadenopathy. LABORATORY INVESTIGATION: Showed hemoglobin of 10.7. Chemistry showed sodium of 125, creatinine 5.0 7 with BUN of 43. IMPRESSION: 1. End-stage renal disease, hemodialysis dependent. 2. Hyponatremia, query cause. 3. Hip fracture, status post mechanical fall. PLAN: 1. . 2. Hemodialysis. Patient scheduled. May likely need to adjust sodium content of the dialysis.. 3. Further management to be dependent on the clinical course.
[2017-04-30 08:02] LABS: Anion Gap 13 mmol/L (10-20); BUN (Urea Nitrogen) 24 mg/dL (8.4-25.7); Calc. Creatinine Clearance 19 mL/min (70-130); Calcium 8.5 mg/dL (7.8-10.44); Carbon Dioxide 28 mmol/L (23-31); Chloride 96 mmol/L (98-107); Estimated GFR-MDRD 16; Glucose 88 mg/dL (80-115); Potassium 4.1 mmol/L (3.5-5.1); Sodium 133 mmol/L (136-145)
[2017-04-30] MEDS ORDERED: Magnesium Citrate 300 ML BOT PO SCH (08:30)
[2017-04-30] MEDS: cloNIDine 0.1 MG TAB PO SCH ×2 (10:14→20:39)
[2017-04-30] MEDS: Sevelamer Carbonate 800 MG TAB PO SCH ×3 (10:14→17:23)
[2017-04-30] MEDS: Senokot S 8.6-50 MG TAB PO SCH ×2 (10:15→20:35)
[2017-04-30] MEDS: DULoxetine 30 MG CAP PO SCH (10:15)
[2017-04-30] MEDS: Amlodipine 10 MG TAB PO SCH (10:15)
[2017-04-30] MEDS: Gabapentin 300 MG CAP PO SCH ×2 (10:15→20:51)
[2017-04-30] MEDS: hydrALAZINE 25 MG TAB PO SCH ×3 (10:15→20:35)
[2017-04-30] MEDS: Aspirin 325 MG TAB PO SCH ×2 (10:15→20:35)
[2017-04-30] MEDS: Atorvastatin Calcium 20 MG TAB PO SCH (10:15)
[2017-04-30] MEDS: Fenofibrate 48 MG TAB PO SCH (10:16)
[2017-04-30] MEDS: Tamsulosin HCl 0.4 MG CAP PO SCH (10:16)
[2017-04-30] MEDS: Multivitamin W/ Minerals 1 TAB PO SCH (10:16)
[2017-04-30] MEDS: lamoTRIgine 25 MG TAB PO SCH (10:16)
[2017-04-30] MEDS: busPIRone HCl 5 MG TAB PO SCH ×2 (10:16→20:37)
[2017-04-30] MEDS: HumaLOG 300 UNITS/3 ML VIAL SC SCH (10:18)
[2017-04-30] MEDS: Famotidine 20 MG TAB PO SCH (10:18)
--- NOTE | 2017-04-30 14:12 | PRG ---
DATE OF SERVICE: 04/30/2017 ATTENDING PHYSICIAN: Dr. Rafael Xavier. SUBJECTIVE: The patient is postop day #4 status post ORIF of right hip fracture. He received scheduled dialysis yesterday. Hyponatremia has been an issue with him since admission. Today, his sodium was up to 133. His pain is well controlled on the floor and he is tolerating a regular diet. OBJECTIVE: VITAL SIGNS: Temperature 97.4, pulse 66, blood pressure 122/63, respirations 19 , O2 sat 98% on room air. HEENT: Atraumatic, normocephalic. PULMONARY: Respirations even and unlabored. No acute distress. CARDIOVASCULAR: Regular rate and rhythm. ABDOMEN: Soft, nontender, and nondistended. EXTREMITIES: Moves all extremities well. Cap refill brisk. Neurovascularly intact. NEUROLOGIC: GCS 15. A and O x3. ASSESSMENT: 1. Status post ground level fall. 2. Right hip fracture. 3. Status post open reduction and internal fixation of right hip. 4. Hyponatremia. 5. End-stage renal disease on hemodialysis. PLAN: 1. Continue mobilizing with physical and occupational therapy. 2. Continue recommendations and correction of electrolytes per Nephrology Service. 3. Continue influenza precautions and discontinue precautions per hospital protocol. 4. Discharged to [facility] when bed is available. Plan of care was discussed with case packer. Apparently, [facility] does not have available beds today. The patient was seen and examined with Dr. Xavier who agrees with the assessment and plan. [facility]
[2017-04-30] MEDS: traMADol HCl 50 MG TAB PO SCH ×2 (17:23→23:50)
[2017-04-30] MEDS: Latanoprost 0.005% Ophth Soln 2.5 ml Bottle EA EYE SCH (20:36)
[2017-04-30] MEDS: Mirtazapine 15 MG TAB PO SCH (20:36)
[2017-05-01] MEDS: Acetaminophen 500 MG TAB PO SCH ×4 (03:42→20:37)
[2017-05-01 04:03] LABS: #Basophils 0.1 thou/uL (0.0-0.2); #Eosinphils 0.3 thou/uL (0.0-0.7); #Monocytes 1.2 thou/uL (0.11-0.59); #Neutrophils 5.3 thou/uL (1.40-6.50); %Basophils 0.6 % (0.0-1.0); %Eosinophils 3.7 % (0.0-10.0); %Lymphocytes 22.6 % (21.0-51.0); %Monocytes 13.3 % (0.0-10.0); %Neutrophils 59.8 % (42.0-75.0); Hemoglobin 10.5 g/dL (14.0-18.0); Mean Corpuscular HGB CONC 32.8 g/dL (32.0-36.0); Mean Corpuscular Hemoglobin 31.1 pg (27.0-31.0); Mean Corpuscular Volume 94.8 fl (80.0-94.0); Platelet Count 338 thou/uL (130-400); RBC Distribution Width 12.8 % (11.5-14.5); Red Blood Cell (RBC) Count 3.38 mill/uL (4.70-6.10); White Blood Cell (WBC) Count 8.9 thou/uL (4.8-10.8)
[2017-05-01 04:28] LABS: Anion Gap 13 mmol/L (10-20); BUN (Urea Nitrogen) 35 mg/dL (8.4-25.7); Calc. Creatinine Clearance 15 mL/min (70-130); Calcium 8.4 mg/dL (7.8-10.44); Carbon Dioxide 29 mmol/L (23-31); Chloride 93 mmol/L (98-107); Estimated GFR-MDRD 12; Glucose 201 mg/dL (80-115); Magnesium 2.2 mg/dL (1.6-2.6); Phosphorus 2.5 mg/dL (2.3-4.7); Potassium 4.5 mmol/L (3.5-5.1); Sodium 130 mmol/L (136-145)
[2017-05-01] MEDS: traMADol HCl 50 MG TAB PO SCH ×4 (06:24→23:02)
[2017-05-01] MEDS: Amlodipine 10 MG TAB PO SCH (09:00)
[2017-05-01] MEDS: cloNIDine 0.1 MG TAB PO SCH ×2 (09:00→20:36)
[2017-05-01] MEDS: Sevelamer Carbonate 800 MG TAB PO SCH ×3 (11:31→17:34)
[2017-05-01] MEDS: HumaLOG 300 UNITS/3 ML VIAL SC SCH (11:32)
--- NOTE | 2017-05-01 11:41 | PRG ---
DATE OF SERVICE: 04/30/2017 SUBJECTIVE: . OBJECTIVE: VITAL SIGNS: The patient noted with the following vital signs. Temperature 98.3, pulse 72, respirat ory rate 15, O2 saturation 98%, blood pressure 138/67. HEENT: Unremarkable. CARDIOVASCULAR SYSTEM: First and second heart sounds were heard. RESPIRATORY SYSTEM: Clear to auscultation. DIGESTIVE SYSTEM: Revealed a benign abdomen with positive bowel sounds. EXTREMITIES: No peripheral edema. SKIN: No new gross rash. LYMPHATICS: No peripheral lymphadenopathy. IMPRESSION: End-stage renal disease on hemodialysis. PLAN: The patient to continue with hemodialysis as tolerated.
[2017-05-01] MEDS: Aspirin 325 MG TAB PO SCH ×2 (12:39→20:35)
[2017-05-01] MEDS: Fenofibrate 48 MG TAB PO SCH (12:39)
[2017-05-01] MEDS: Gabapentin 300 MG CAP PO SCH ×2 (12:39→20:36)
[2017-05-01] MEDS: Atorvastatin Calcium 20 MG TAB PO SCH (12:39)
[2017-05-01] MEDS: DULoxetine 30 MG CAP PO SCH (12:40)
[2017-05-01] MEDS: lamoTRIgine 25 MG TAB PO SCH (12:40)
[2017-05-01] MEDS: Tamsulosin HCl 0.4 MG CAP PO SCH (12:40)
[2017-05-01] MEDS: Senokot S 8.6-50 MG TAB PO SCH ×2 (12:40→20:37)
[2017-05-01] MEDS: Multivitamin W/ Minerals 1 TAB PO SCH (12:40)
[2017-05-01] MEDS: Famotidine 20 MG TAB PO SCH (12:41)
[2017-05-01] MEDS: busPIRone HCl 5 MG TAB PO SCH ×2 (12:41→20:35)
[2017-05-01] MEDS: traMADol HCl 50 MG TAB PO PRN (14:25)
[2017-05-01] MEDS: hydrALAZINE 25 MG TAB PO SCH ×3 (14:26→20:37)
--- NOTE | 2017-05-01 15:19 | PRG ---
DATE OF SERVICE: 05/01/2017 ATTENDING PHYSICIAN: Rafael Xavier D.O. SUBJECTIVE: The patient is postop day #5, status post ORIF of right hip fracture. He received his scheduled dialysis today. He was seen on the surgical floor post-dialysis. He reports pain is well managed. He is tolerating a regular diet. OBJECTIVE: VITAL SIGNS: Temperature 98.2, pulse 76, blood pressure 153/63, respirations 18 , O2 sat 99% on room air. HEENT: Atraumatic, normocephalic. PULMONARY: Respirations even and unlabored. No acute distress. CARDIOVASCULAR: Regular rate and rhythm. Heart sounds normal. ABDOMEN: Soft, nontender, nondistended. EXTREMITIES: Moves all extremities well. Cap refill brisk. Neurovascularly intact. NEUROLOGIC: GCS of 15. PSYCHIATRIC: A and O x3. ASSESSMENT: 1. Status post ground level fall. 2. Right hip fracture. 3. Status post open reduction and internal fixation of right hip. 4. Hyponatremia, Nephrology managing. 5. End-stage renal disease on hemodialysis. PLAN: 1. Continue mobilizing with physical and occupational therapy. 2. Continue recommendations and correction of electrolytes per Nephrology Service. 3. Influenza precautions per hospital protocol. 4. Discharge to [facility] when bed is available. Case management continues to follow. Anticipate patient will discharge in the next 1 -2 days. Patient was reviewed with Dr. Xavier, attending trauma surgeon, who agrees with the assessment and plan. [facility]
[2017-05-01] MEDS: Mirtazapine 15 MG TAB PO SCH (20:36)
[2017-05-01] MEDS: Latanoprost 0.005% Ophth Soln 2.5 ml Bottle EA EYE SCH (20:37)
[2017-05-02] MEDS: Acetaminophen 500 MG TAB PO SCH ×4 (04:24→20:04)
[2017-05-02] MEDS: traMADol HCl 50 MG TAB PO SCH ×4 (05:40→23:33)
[2017-05-02] MEDS: Insulin Regular 300 UNITS/3 ML VIAL SC PRN (05:41)
[2017-05-02] MEDS: Amlodipine 10 MG TAB PO SCH (10:05)
[2017-05-02] MEDS: Aspirin 325 MG TAB PO SCH ×2 (10:05→20:05)
[2017-05-02] MEDS: Senokot S 8.6-50 MG TAB PO SCH ×2 (10:06→20:05)
[2017-05-02] MEDS: Fenofibrate 48 MG TAB PO SCH (10:06)
[2017-05-02] MEDS: Multivitamin W/ Minerals 1 TAB PO SCH (10:07)
[2017-05-02] MEDS: DULoxetine 30 MG CAP PO SCH (10:07)
[2017-05-02] MEDS: Atorvastatin Calcium 20 MG TAB PO SCH (10:07)
[2017-05-02] MEDS: hydrALAZINE 25 MG TAB PO SCH ×3 (10:07→20:06)
[2017-05-02] MEDS: busPIRone HCl 5 MG TAB PO SCH ×2 (10:07→20:04)
[2017-05-02] MEDS: Gabapentin 300 MG CAP PO SCH ×2 (10:08→20:04)
[2017-05-02] MEDS: cloNIDine 0.1 MG TAB PO SCH ×2 (10:08→20:05)
[2017-05-02] MEDS: lamoTRIgine 25 MG TAB PO SCH (10:08)
[2017-05-02] MEDS: Tamsulosin HCl 0.4 MG CAP PO SCH (10:09)
[2017-05-02] MEDS: Famotidine 20 MG TAB PO SCH (10:21)
[2017-05-02] MEDS: Sevelamer Carbonate 800 MG TAB PO SCH ×3 (10:21→18:18)
[2017-05-02] MEDS: HumaLOG 300 UNITS/3 ML VIAL SC SCH (10:22)
--- NOTE | 2017-05-02 14:19 | PRG ---
DATE OF SERVICE: 05/02/2017 ATTENDING PHYSICIAN: Rafael Xavier. This is Kellie Quick NP, dictating daily progress note for Dr. Rafael Xavier. SUBJECTIVE: The patient is postop day #6 status post ORIF of right hip fracture. He received his scheduled dialysis yesterday. This morning, he is seen sitting up in bed. He reports the pain is well controlled. He is tolerating a regular diet. He is awake, alert, and oriented. No distress. OBJECTIVE: VITAL SIGNS: Temperature 97.4, pulse 71, respirations 20, O2 saturation 97% on room air, blood pressure 118/53. HEENT: Atraumatic, normocephalic. PULMONARY: Respirations even and unlabored. Bilateral breath sounds clear. CARDIOVASCULAR: Regular rate and rhythm. Heart sounds normal. ABDOMEN: Soft, nontender, nondistended. EXTREMITIES: Moves all extremities well. Cap refill brisk. Neurovascularly intact. NEUROLOGIC: GCS 15 and alert and oriented x3. ASSESSMENT: 1. Status post ground level fall. 2. Right hip fracture. 3. Status post open reduction and internal fixation right hip fracture. 4. End-stage renal disease, on hemodialysis. PLAN: 1. Continue mobilization with physical and occupational therapy. 2. Continue recommendations per Nephrology Service. Nephrology Service managing dialysis. 3. The patient has been afebrile since admission, but has been on influenza precautions per hospital protocol. This may be discontinued at discretion of infection control and/or hospital protocol. 4. Discharged to [facility] when bed is available. Anticipate next 1-2 days. The patient was reviewed with Dr. Xavier, attending trauma surgeon, who agrees with the assessment and plan. [facility]
--- NOTE | 2017-05-02 14:46 | PRG ---
DATE OF SERVICE: 05/02/2017 SUBJECTIVE: The patient was noted to have PHYSICAL EXAMINATION: VITAL SIGNS: Temperature 98, pulse 66, blood pressure 130/55, respiratory rate of 18, O2 sat 100%. HEENT: Examination is unremarkable no conjunctival injection. TMs are clear . LUNGS: Clear to auscultation bilaterally. LABORATORY DATA: IMPRESSION: End-stage renal disease on hemodialysis . The patient is scheduled to have
[2017-05-02] MEDS: traMADol HCl 50 MG TAB PO PRN (15:51)
[2017-05-02] MEDS: Mirtazapine 15 MG TAB PO SCH (20:05)
[2017-05-02] MEDS: Latanoprost 0.005% Ophth Soln 2.5 ml Bottle EA EYE SCH (20:07)
[2017-05-03] MEDS: Acetaminophen 500 MG TAB PO SCH ×4 (04:54→20:37)
[2017-05-03] MEDS: traMADol HCl 50 MG TAB PO SCH ×3 (04:55→17:17)
[2017-05-03] MEDS: Aspirin 325 MG TAB PO SCH ×2 (08:44→20:37)
[2017-05-03] MEDS: busPIRone HCl 5 MG TAB PO SCH ×2 (08:44→20:38)
[2017-05-03] MEDS: hydrALAZINE 25 MG TAB PO SCH ×3 (08:44→20:42)
[2017-05-03] MEDS: DULoxetine 30 MG CAP PO SCH (08:44)
[2017-05-03] MEDS: cloNIDine 0.1 MG TAB PO SCH ×2 (08:44→20:42)
[2017-05-03] MEDS: Senokot S 8.6-50 MG TAB PO SCH ×2 (08:45→20:42)
[2017-05-03] MEDS: Gabapentin 300 MG CAP PO SCH ×2 (08:45→20:37)
[2017-05-03] MEDS: Fenofibrate 48 MG TAB PO SCH (08:45)
[2017-05-03] MEDS: Amlodipine 10 MG TAB PO SCH (08:45)
[2017-05-03] MEDS: Tamsulosin HCl 0.4 MG CAP PO SCH (08:45)
[2017-05-03] MEDS: Multivitamin W/ Minerals 1 TAB PO SCH (08:45)
[2017-05-03] MEDS: Atorvastatin Calcium 20 MG TAB PO SCH (08:45)
[2017-05-03] MEDS: Sevelamer Carbonate 800 MG TAB PO SCH ×3 (08:45→17:17)
[2017-05-03] MEDS: HumaLOG 300 UNITS/3 ML VIAL SC SCH (08:46)
[2017-05-03] MEDS: lamoTRIgine 25 MG TAB PO SCH (11:07)
--- NOTE | 2017-05-03 11:18 | PRG ---
DATE OF SERVICE: 05/03/2017 ATTENDING PHYSICIAN: Dr. Rafael Xavier. Kellie Quick, nurse practitioner, dictating a daily progress note for Dr. Rafael Xavier. SUBJECTIVE: The patient is postoperative day #7 status post ORIF of right hip fracture. He is currently on a Wednesday, , and Wednesday of regular dialysis schedule. This morning, he is seen sitting up in bed. Pain is well controlled per his report. He is tolerating a regular diet. He is working with physical and occupational therapy. He has had no postoperative issues. OBJECTIVE: VITAL SIGNS: Temperature 97.6, pulse 68, respirations 20, O2 sat 98% on room air, blood pressure 139/64. HEENT: Atraumatic, normocephalic. PULMONARY: Respirations even and unlabored. Breath sounds clear. CARDIOVASCULAR: Regular rate and rhythm. Heart sounds normal. ABDOMEN: Soft, nontender, nondistended. EXTREMITIES: Moves all extremities well. Cap refill brisk. Neurovascularly intact. NEUROLOGIC: GCS 15. A and O x3. ASSESSMENT AND PLAN: 1. Status post ground-level fall. 2. Right hip fracture. 3. Status post open reduction and internal fixation, right hip fracture. 4. End-stage renal disease, on hemodialysis. PLAN: 1. Continue mobilization with physical and occupational therapy. 2. Continue recommendations and dialysis per Nephrology Service. 3. Discharge to [facility] when bed is available. Discussed with case management. If [facility] bed is not anticipated to be available in the next few days, the patient may be a candidate for swing bed. The patient was seen and examined with Dr. Xavier, who agrees with the assessment and plan. [facility]
[2017-05-03] MEDS: traMADol HCl 50 MG TAB PO PRN ×2 (15:13→20:49)
--- NOTE | 2017-05-03 15:29 | PRG ---
DATE OF SERVICE: 05/03/2017 SUBJECTIVE: The patient was seen and examined with no new complaint, hemodynamically stable. PHYSICAL EXAMINATION: VITAL SIGNS: Blood pressure of 139/64, respiratory rate 20, O2 sat of 98%, afebrile with temperature of 97.6. HEENT: Unremarkable. Moist oral mucosa. Neck was supple. No conjunctival injection or icterus. CARDIOVASCULAR SYSTEM: First and second heart sounds were heard. RESPIRATORY SYSTEM: Clear to auscultation. DIGESTIVE SYSTEM: Revealed a benign abdomen. EXTREMITIES: No peripheral edema. SKIN: No new gross rash. LYMPHATICS: No peripheral lymphadenopathy. IMPRESSION: 1. End-stage renal disease, hemodialysis dependent. 2. Right hip fracture status post mechanical fall. PLAN: 1. The patient to continue with his current dialysis schedule of Wednesday, , and Wednesday. 2. Further management including disposition planning as per the primary team.
--- NOTE | 2017-05-03 20:17 | RAD ---
THREE VIEWS RIGHT ANKLE: Date: 05-03-17 History: Right ankle pain. FINDINGS: The ankle mortise is congruent. Osteopenia is present. There is no fracture or dislocation. Vascular calcifications overlie the ankle. There is a linear metallic density seen adjacent to the distal port ion of the third metatarsal suggesting a metallic foreign body. IMPRESSION: 1. Linear metallic foreign body adjacent to the third metatarsal. 2. No acute osseous abnormality of the right ankle. POS: [facility]
[2017-05-03 20:36] VITALS: BP 143/66; TEMP 98.7
[2017-05-03] MEDS: Mirtazapine 15 MG TAB PO SCH (20:37)
[2017-05-03] MEDS: Insulin Regular 300 UNITS/3 ML VIAL SC PRN (21:24)
[2017-05-03] MEDS: Latanoprost 0.005% Ophth Soln 2.5 ml Bottle EA EYE SCH (21:26)
--- NOTE | 2017-05-04 14:23 | DIS ---
DATE OF ADMISSION: 04/25/2017 ADMITTING PHYSICIAN: Dr. Rafael Xavier. DISCHARGING PHYSICIAN: Dr. Rafael Xavier. CONSULTING PHYSICIAN: Dr. Lange, Orthopedics; Dr. Martin, Nephrology REASON FOR HOSPITALIZATION: Ground level fall with right hip pain. HOSPITAL DIAGNOSES: Right subcapital hip fracture. PROCEDURE: Proximal femoral replacement. DATE OF OPERATION: 04/26/2017 SURGEON: Dr. Narendra Lange. Please refer to Dr. Lange's complete operative note for details. PATIENT'S DISCHARGE CONDITION: Stable to rehabilitation. BRIEF HISTORY OF HOSPITALIZATION: [facility] where he sustained a left ischial tuberosity fracture. He then again fell at rehab, landing o n his right side and sustaining a right subcapital hip fracture. He was admitted to the hospital by Trauma services. Dr. Lange was consulted for management of fracture. Dr. Martin was also cons ulted for management of end-stage renal disease and continued dialysis. He was taken to the operatin g room on hospital day #1 for repair of his right hip fracture. He was then managed on the surgical floor. He continued dialysis while in the hospital.
--- NOTE | 2017-05-25 23:51 | DIS ---
DATE OF ADMISSION: 04/25/2017 DATE OF DISCHARGE: 05/03/2017 ADMITTING PHYSICIAN: Dr. Rafael Xavier. DISCHARGING PHYSICIAN: Dr. Rafael Xavier. CONSULTING PHYSICIAN: Dr. Lange, Orthopedics; Dr. Martin, Nephrology REASON FOR HOSPITALIZATION: Fall with right hip pain. HOSPITAL DIAGNOSES: 1. Right subcapital hip fracture. 2. End-stage renal disease on hemodialysis. PROCEDURE PERFORMED: Proximal femoral replacement. DATE OF OPERATION: 2017. SURGEON: Dr. Narendra Lange. Please refer to Dr. Lange's operative note for complete details. PATIENT'S DISCHARGE CONDITION: Stable to [facility]. BRIEF HISTORY OF HOSPITALIZATION: The patient is a 66-year-old male who was at the [facility] facility where he had been since he had a left ischial tuberosity fracture and was discharged to [facility] previously. He then had another fall at the rehabilitation facility, landing on his right side and sustaining a right femoral neck fracture. He was admitted to the hospital by Trauma services. Dr. Lange, Orthopedics, was consulted. Dr. Martin, Nephrology, was consulted for management of end-stage renal disease and dialysis. He was taken to the OR on hospital day #1 for repair of right hip fracture. He was then managed on the surgical floor. He continued dialysis at the direction of the Nephrology Service. Case management was consulted for discharge planning. He started mobilizing with physical and occupational therapy. He remained in the hospital for an extended period of time waiting on placement back to [facility]. On the day of discharge, he complained of right ankle pain. The patient was examined. There were no wounds noted. No falls or injury had been reported. An x-ray was done. There was no fracture noted. A linear metallic foreign body adjacent to the third metatarsal was noted. His was informed of this on 05/25/2017. The patient was discharged to rehabilitation. The patient was seen on the day of discharge with Dr. Xavier who agreed with the assessment and plan for discharge. Kellie Quick NP, dictating for Rafael CARR
--- NOTE | 2017-05-29 17:43 | EKG ---
Test Reason : Blood Pressure : / mmHG Vent. Rate : 068 BPM Atrial Rate : 068 BPM P-R Int : 166 ms QRS Dur : 112 ms QT Int : 446 ms P-R-T Axes : 014 -15 048 degrees QTc Int : 474 ms Normal sinus rhythm Normal ECG Confirmed by ANTONIO PERLA ([id number]), editor news GIOVANNI PANG ([id number]) on 05/29/2017 5:43:14 PM Referred By: Confirmed By:ANTONIO PERLA
== END 2017-05-03 21:30 | DRG 469 ==
LOC: ERS 13:01 → SURG B 16:14 → SURG A 04-28 11:35
PROVIDERS: ADMIT Surgery; ATTEND Surgery
PROC: 5A1D70Z Performance of Urinary Filtration, Intermittent, Less than 6 Hours Per Day (ICD-10-PCS; 2017-04-25)
PROC: 0SRR0JA Replacement of Right Hip Joint, Femoral Surface with Synthetic Substitute, Uncemented, Open Approach (ICD-10-PCS; principal; 2017-04-26)
PROC: 5A1D70Z Performance of Urinary Filtration, Intermittent, Less than 6 Hours Per Day (ICD-10-PCS; 2017-04-27)
PROC: 5A1D70Z Performance of Urinary Filtration, Intermittent, Less than 6 Hours Per Day (ICD-10-PCS; 2017-04-29)
DX: S72.011A Unspecified intracapsular fracture of right femur, initial encounter for closed fracture (principal); N18.6 End stage renal disease; E11.22 Type 2 diabetes mellitus with diabetic chronic kidney disease; I12.0 Hypertensive chronic kidney disease with stage 5 chronic kidney disease or end stage renal disease; E87.1 Hypo-osmolality and hyponatremia; D64.9 Anemia, unspecified; S32.602D Unspecified fracture of left ischium, subsequent encounter for fracture with routine healing; Z99.2 Dependence on renal dialysis; Z87.891 Personal history of nicotine dependence; Z86.73 Personal history of transient ischemic attack (TIA), and cerebral infarction without residual deficits; W19.XXXA Unspecified fall, initial encounter; Y92.238 Other place in hospital as the place of occurrence of the external cause; X58.XXXD Exposure to other specified factors, subsequent encounter; Z88.5 Allergy status to narcotic agent; F41.9 Anxiety disorder, unspecified; F32.9 Major depressive disorder, single episode, unspecified; Z66 Do not resuscitate
CPT/HCPCS: 36415; 36416; 71045; 72170; 80048; 82805; 83735; 83935; 84100; 84300; 85025; 85027; 90935; 93005; 96360; A4216; G0257; G0390; G8978-GP-CM; G8979-GP-CK; G8987-GO-CM; G8988-GO-CJ; J0131; J1815; J2001; J2250; J2270; J2704; J3010

== ENCOUNTER 2017-05-20 11:06 | Observation (INO) | payer MEDICARE ==
[2017-05-20 12:10] LABS: #Basophils 0.1 thou/uL (0.0-0.2); #Eosinphils 0.1 thou/uL (0.0-0.7); #Lymphocytes 1.9 thou/uL (1.20-3.40); #Monocytes 0.8 thou/uL (0.11-0.59); #Neutrophils 6.2 thou/uL (1.40-6.50); %Basophils 0.6 % (0.0-1.0); %Eosinophils 1.1 % (0.0-10.0); %Lymphocytes 21.1 % (21.0-51.0); %Monocytes 8.5 % (0.0-10.0); %Neutrophils 68.7 % (42.0-75.0); Hemoglobin 12.4 g/dL (14.0-18.0); Mean Corpuscular HGB CONC 32.8 g/dL (32.0-36.0); Mean Corpuscular Hemoglobin 30.8 pg (27.0-31.0); Mean Corpuscular Volume 93.8 fl (80.0-94.0); Mean Platelet Volume 6.6 fL (7.4-10.4); Platelet Count 307 thou/uL (130-400); RBC Distribution Width 13.8 % (11.5-14.5); Red Blood Cell (RBC) Count 4.04 mill/uL (4.70-6.10)
--- NOTE | 2017-05-20 12:17 | CT ---
CT BRAIN WITHOUT CONTRAST: Indication: Altered mental status. Comparison: Prior exam dated 02-16-17. FINDINGS: Motion artifact limits image detail. Generalized cerebral and cerebellar atrophy is similar. Chronic small vessel ischemic change is similar. No definite acute infarct, hemorrhage, or hydrocephalus is p resent. Septum pellucidum and third ventricle are midline. Mastoid air cells and paranasal sinuses ap pear clear. IMPRESSION: Limited exam. No definite acute intracranial abnormality evident within the limitations of this study . POS: [facility]
[2017-05-20 12:34] LABS: Acetaminophen Less than 6.0 mcg/mL (10.0-30.0); Alcohol Less than 10 mg/dL (Less than 10); Lipase 29 U/L (8-78); Salicylate Less than 8.0 mg/dL (15.0-30.0)
[2017-05-20 12:35] LABS: ALT (SGPT) 18 U/L (8-55); AST (SGOT) 32 U/L (5-34); Albumin 3.6 g/dL (3.4-4.8); Alkaline Phosphatase 122 U/L (40-150); Anion Gap 21 mmol/L (10-20); BUN (Urea Nitrogen) 75 mg/dL (8.4-25.7); Bilirubin, Total 0.6 mg/dL (0.2-1.2); CK (CPK) 83 U/L (30-200); Calc. Creatinine Clearance 0 mL/min (70-130); Calcium 8.6 mg/dL (7.8-10.44); Carbon Dioxide 24 mmol/L (23-31); Chloride 91 mmol/L (98-107); Estimated GFR-MDRD 9; Globulin 3.5 g/dL (2.4-3.5); Glucose 270 mg/dL (80-115); Protein, Total 7.1 g/dL (5.8-8.1); Sodium 131 mmol/L (136-145)
[2017-05-20 12:39] LABS: CKMB 3.4 ng/mL (0-6.6); Troponin I 0.036 ng/mL (< 0.028)
--- NOTE | 2017-05-20 12:59 | RAD ---
SINGLE VIEW OF THE CHEST: HISTORY: Altered mental status. COMPARISON: 04/25/2017 FINDINGS: A single view of the chest shows a normal sized cardiomediastinal silhouette. There is no evidence o f consolidation, mass, or pleural effusion. Hardware is seen in the right humerus. IMPRESSION: No evidence of acute cardiopulmonary disease. POS: [facility]
[2017-05-20 15:06] VITALS: BMI 19.4
[2017-05-20] MEDS ORDERED: Acetaminophen 325 MG TAB PO PRN (15:10)
[2017-05-20] MEDS ORDERED: Ondansetron HCl/PF 4 MG/2 ML Vial IVP PRN (15:10)
[2017-05-20] MEDS ORDERED: Ondansetron ODT 4 MG TAB SL PRN (15:10)
[2017-05-20] MEDS ORDERED: Dextrose 50% Abboject 50 ML SYRINGE SLOW IVP PRN (15:15)
[2017-05-20] MEDS ORDERED: Dextrose 5% in Water 1,000 ML IV PRN (15:15)
[2017-05-20] MEDS ORDERED: HumaLOG 300 UNITS/3 ML VIAL SC PRN (15:15)
[2017-05-20 15:43] LABS: Troponin I 0.054 ng/mL (< 0.028)
[2017-05-20] MEDS: Heparin 5,000 UNITS/ML VIAL SC SCH ×2 (16:05→23:12)
[2017-05-20 18:52] LABS: Troponin I 0.044 ng/mL (< 0.028)
[2017-05-20 19:47] LABS: Syphilis Antibody Nonreactive (Nonreactive); Syphilis Antibody Index 0.07 S/CO (<1.00 Non-Reactive)
--- NOTE | 2017-05-20 20:56 | PDOC.EVN ---
Attending Addendum - Attending Addendum I personally evaluated the patient and discussed the management with Dr. Mondragon. I agree with the History, Examination, Assessment and Plan documented above with any addition or exceptions noted below. 66 yo [facility] 04/26/2017 dismissed to to home several days ago Patient per daughter with loose stool and not himself. Patient on norco for pain patient evaluated in ER with Altered Mental Status admitted with suspected drug overdose. blood acetaminophen and salicylates drawn .Patient s/p recent CVA with a residual dysarthric speech. Family not available at time of evaluation to further clarify history. Record review Notable for ESRD on HD MWF patient skipped HD yesterday,Diabetes Mellitus on insulin,HX hepatitis C, Hx polysubstance abuse,PTSD, BPH. Multiple orthopedic procedures prior ORIF R humerus and Left femur fractures. exam Temp 98.7 RR18 P 86 BP 168/ 86 O2 sat 100% on RA patient oriented to person only speech slurred pupils pinpt and fixed,lung CTA , Heart NSR ,Abdomen soft benign patient move all extremities LE with 3/5 weakness Imaging CXR no active infiltrates or effusion. CT brain with motion artifact noted no bleed or acute changes noted. Lab serum ammonia 27, BS 270,Troponin slightly elevated in setting of RF, B12 783, negative RPR, Lipase 29, WBC 9.0 Hgb 12.4 HCT 37.9 Plts 307 BUN 75 creatinine 6.55 AMS consider drug affect ,Infection, uremia baseline unknown, CVA. Patient admitted for further observation and management will need HD Nephrology consulted, swallow studies otherwise expectant management observation and assertain more information as family available.
[2017-05-20 23:38] LABS: Cocaine Metabolite Screen Not Detected (NotDetected); Medtox Reader # READER 4; Methamphetamine Not Detected (NotDetected); Phencyclidine (PCP) Not Detected (NotDetected); THC/Cannabinoid Screen Not Detected (NotDetected)
[2017-05-20 23:39] LABS: Amphetamine Not Detected (NotDetected); Barbiturates Screen Not Detected (NotDetected); Benzodiazepine Screen Not Detected (NotDetected); Medtox Control Line Valid? VALID (VALID); Methadone Not Detected (NotDetected); Opiate Screen Detected (NotDetected); Oxycodone Screen Not Detected (NotDetected); Tricyclic Screen Not Detected (NotDetected)
--- NOTE | 2017-05-21 00:43 | HP-2 ---
CODE STATUS: DNR; code status was scanned in to the EMR and it was signed by patient's in 2015. PRIMARY CARE PHYSICIAN: Walt willoughby. ATTENDING: Dr. Huber. RESIDENT: Dr. Gina Yanez. CHIEF COMPLAINT: Weakness and altered mental status. 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 The patient apparently left rehab 3-4 days ago after recovering from a hip surgery. The told the emergency department physician that she walked into patient's room and noted him to be altered and not communicating appropriately. There is also a report of slurred speech. History is very limited at this time as patient is not able to answer all questions appropriately and his is not available for questioning. The emergency department physician did consider giving Narcan as a reversal for narcotics in the event that this is secondary to the patient taking too many of his pain medications. CT of the brain was performed which was negative for any acute intracranial findings. Additionally, the patient did not have any focal deficits that were concerning for new onset cerebrovascular accident. PAST MEDICAL HISTORY: 1. Cerebrovascular accident with deficit of slurred speech; timeframe, unknown. 2. Hepatitis C. 3. Fracture of the right shoulder. 4. ORIF of right hip in April. 5. Diabetes mellitus type 2. 6. Hypertension. 7. End-stage renal disease, on hemodialysis Wednesday, Wednesday and Wednesday. 8. Anxiety. 9. Depression. FAMILY HISTORY: Noncontributory. SOCIAL HISTORY: Unable to verify social history at this time. There are reports that the patient has a history of marijuana abuse. REVIEW OF SYSTEMS: Review of systems is unreliable secondary to patient's current mental state. Able to elicit that he was having right hip pain. PHYSICAL EXAMINATION: VITAL SIGNS: Blood pressure 187/81, pulse 83, respiratory rate 15, T-max 98.5, pulse ox 100% on room air, current weight 62 kilograms. GENERAL: The patient is alert. He is oriented x2. He is well-developed and then he is unable to answer many questions appropriately. EYES: Pupils equally round and reactive to light and accommodation. Extraocular muscles intact. Conjunctivae within normal limits. ENT: Nasal mucosa within normal limits. NECK: Supple. No lymphadenopathy. CARDIOVASCULAR: Regular rate and rhythm. No murmurs. Radial and pedal pulses 2+. RESPIRATORY: Normal effort, no retractions, clear to auscultation bilaterally. SKIN: Warm and dry. No cyanosis. No lesions. ABDOMEN: Soft and nontender to palpation. EXTREMITIES: No clubbing or edema. MUSCULOSKELETAL: Structure within normal limit. Muscle strength 5/5 in upper extremities. Muscle strength in lower extremities. Difficult to assess secondary to patient's recent hip surgery. NEUROLOGIC: No focal deficits. Cranial nerves II-XII are intact. The patient does have slurred speech; however, this is a residual from prior CVA. LABORATORY DATA: 1. CBC reveals white blood cell count of 9, hemoglobin 12.4, hematocrit 37.9, platelets 307. 2. CMP reveals sodium 131, potassium 5.0, chloride 91, bicarbonate 24, BUN 75, creatinine 6.52, platelets 270, calcium 8.6, protein 7.1, albumin 3.6, alkaline phosphatase 122, AST 32, ALT 18, and bilirubin 0.6. 3. CK-MB 3.4, troponin 0.036. 4. Chest x-ray no acute intrathoracic abnormalities. 5. Brain CT, no acute intracranial findings. ASSESSMENT AND PLAN: This is a 66-year-old male that presented with altered mental status. 1. Encephalopathy, likely secondary to drug intoxication. The patient was admitted to the stroke unit for observation. The patient did have a recent repair of the right hip and he is currently on narcotics. Vital signs are stable. EKG showed normal sinus rhythm. Chest x-ray was within normal limits. CMP did show BUN of 17 and creatinine of 6.52. The patient has end-stage renal disease and is on hemodialysis and he did miss dialysis yesterday. He does not appear to be overloaded at this time, his electrolytes are all within normal limits. UDS is pending at this time as patient is on hemodialysis and may be difficult to obtain urine; however, straight cath will be performed in an attempt to do so. We will continue to monitor the patient and do neuro checks q.4 hours. If focal findings are elicited during this time or if symptoms do not continue to improve over the course of the night, we may consider an MRI in the morning to rule out new cerebrovascular accident. TSH and B12 are also pending at this time, as well as Mg level. We will also check an ammonia level. 2. End-stage renal disease on hemodialysis. We will consult Nephrology in the a.m. The patient is on hemodialysis T, Th, Sat. We will resume his normal course of dialysis in the morning. 3. Hyponatremia. This is likely secondary to mild fluid overload. The patient will receive dialysis tomorrow. 4. Microcytic anemia. This is improved from prior admissions. 5. Elevated troponin. This is likely secondary to kidney function. However, we will trend cardiac enzymes x3. An EKG is within normal limits. 6. Hypertension. We will continue home medications, p.r.n. hydralazine. 7. Deep venous thrombosis prophylaxis. Lovenox. 8. Gastrointestinal prophylaxis: None. DISPOSITION AND LENGTH OF HOSPITAL STAY: One day. Symptomatic medication will be provided. History and physical exam as well as management discussed with Dr. Huber. BRITT
[2017-05-21] MEDS ORDERED: Acetaminophen 650 MG/20.3 ML UDCUP PO PRN (04:50)
[2017-05-21 05:23] LABS: #Basophils 0.1 thou/uL (0.0-0.2); #Eosinphils 0.2 thou/uL (0.0-0.7); #Lymphocytes 1.6 thou/uL (1.20-3.40); #Monocytes 0.7 thou/uL (0.11-0.59); #Neutrophils 3.9 thou/uL (1.40-6.50); %Basophils 1.2 % (0.0-1.0); %Eosinophils 2.4 % (0.0-10.0); %Monocytes 10.2 % (0.0-10.0); %Neutrophils 61.2 % (42.0-75.0); Hemoglobin 11.4 g/dL (14.0-18.0); Mean Corpuscular HGB CONC 32.4 g/dL (32.0-36.0); Mean Corpuscular Hemoglobin 30.6 pg (27.0-31.0); Mean Corpuscular Volume 94.4 fl (80.0-94.0); Mean Platelet Volume 6.3 fL (7.4-10.4); Platelet Count 319 thou/uL (130-400); RBC Distribution Width 13.9 % (11.5-14.5); Red Blood Cell (RBC) Count 3.74 mill/uL (4.70-6.10); White Blood Cell (WBC) Count 6.4 thou/uL (4.8-10.8)
[2017-05-21 05:44] LABS: Anion Gap 13 mmol/L (10-20); BUN (Urea Nitrogen) 33 mg/dL (8.4-25.7); Calc. Creatinine Clearance 17 mL/min (70-130); Calcium 9.2 mg/dL (7.8-10.44); Carbon Dioxide 26 mmol/L (23-31); Chloride 98 mmol/L (98-107); Estimated GFR-MDRD 15; Glucose 87 mg/dL (80-115); Potassium 4.1 mmol/L (3.5-5.1); Sodium 133 mmol/L (136-145)
--- NOTE | 2017-05-21 06:30 | PDOC.FM ---
- Subjective Subjective: No significant overnight events. Patient doing well this AM. He is alert and oriented to person, place, and situation. Baseline mental status is unknown. It seems at though his /girlfriend does a lot for him at home. No new focal deficits. No concerns for TIA/CVA overnight. Mental status has improved. Patient emotional during interview this morning. He was crying and stating that he doesn't know what is wrong with him. He appears very depressed. He denies any situational factors at home in particular causing him to feel this way. We discussed him getting help for depression in the form of medication and counseling. He is agreeable to both at this time. - Objective MAR Reviewed: Yes Vital Signs & Weight: Vital Signs (12 hours) Temp Pulse Resp BP Pulse Ox 05/21/17 04:09 99.0 F 80 16 154/71 H 98 05/20/17 23:02 98.6 F 74 14 140/65 95 Weight Weight 65.091 kg I&O: 05/19/17 05/20/17 05/21/17 06:59 06:59 06:59 Output Total 0 Balance 0 Result Diagrams: 05/21/17 05:06 05/21/17 05:06 EKG Reviewed by me: Yes Radiology Reviewed by me: Yes <Gina Yanez - Last Filed: 05/21/17 08:31> - Objective Vital Signs & Weight: Vital Signs (12 hours) Temp Pulse Resp BP Pulse Ox 05/21/17 10:51 99.9 F H 74 16 137/65 95 05/21/17 08:00 99.1 F 79 20 165/62 H 98 05/21/17 04:09 99.0 F 80 16 154/71 H 98 Weight Weight 65.091 kg I&O: 05/20/17 05/21/17 05/22/17 06:59 06:59 06:59 Intake Total 150 Output Total 300 Balance -150 Result Diagrams: 05/21/17 05:06 05/21/17 05:06 <Naveen Bob - Last Filed: 05/21/17 11:04> Phys Exam - Physical Examination Constitutional: NAD HEENT: moist MMs Neck: supple Respiratory: no wheezing, clear to auscultation bilateral Cardiovascular: RRR, no significant murmur Gastrointestinal: soft, no distention Musculoskeletal: no edema Neurological: non-focal Decreased movement RLE Psychiatric: A&O x 3 (person, place, and situation) Deviation from normal: Sad affect Skin: no rash, cap refill <2 seconds <Gina Yanez - Last Filed: 05/21/17 08:31> Dx/Plan (1) Encephalopathy acute Code(s): G93.40 - ENCEPHALOPATHY, UNSPECIFIED Status: Acute (2) Hyponatremia Code(s): E87.1 - HYPO-OSMOLALITY AND HYPONATREMIA Status: Acute (3) Normocytic anemia Code(s): D64.9 - ANEMIA, UNSPECIFIED Status: Chronic (4) Elevated troponin Code(s): R74.8 - ABNORMAL LEVELS OF OTHER SERUM ENZYMES Status: Acute (5) Diabetes mellitus, type II Status: Chronic (6) History of CVA (cerebrovascular accident) Code(s): Z86.73 - PRSNL HX OF TIA (TIA), AND CEREB INFRC W/O RESID DEFICITS Status: Chronic (7) Depression Code(s): F32.9 - MAJOR DEPRESSIVE DISORDER, SINGLE EPISODE, UNSPECIFIED Status : Chronic (8) Anxiety Code(s): F41.9 - ANXIETY DISORDER, UNSPECIFIED Status: Chronic (9) ESRD (end stage renal disease) on dialysis Code(s): N18.6 - END STAGE RENAL DISEASE; Z99.2 - DEPENDENCE ON RENAL DIALYSIS Status: Chronic (10) Hypertension Code(s): I10 - ESSENTIAL (PRIMARY) HYPERTENSION Status: Chronic - Plan Plan: 1. Encephalopathy likely 2/2 medication intoxication - s/p ORIF right hip on narcotic pain meds - UDS positive for opiates - Slurred speech as a result of past CVA; no new findings or focal deficits - No other organic causes of AMS; B12, RPR, TSH, CMP, Mg, CBC wnl/negative - Neuro checks overnight night did not reveal any new focal deficits or worsening of symptoms 2. Hyonatremia - ESRD on HD; likely 2/2 volume overload - Patient went for dialysis yesterday and Na has improved to 133 this AM - Continue to monitor 3. Normocytic anemia - Likely from CKD - Stable 4. Elevated troponin - Downtrended - No concern for ACS - EKG nml - No CP 5. ESRD on HD M/W/F - Patient apparently sees Dr. Martin, although unable to elicit this information yesterday, as patient was unable to communicate effectively; Dr. Martin aware patient is here, appreciate recs - Skipped dialysis Wed, went for dialysis yesterday - Cr improved to 4.08 this AM 6. DM II - Continue home meds once verified - BG 87 this AM - MSSI - ACHS accuchecks 7. HTN - Monitor BP - Home meds once verified - Hydralazine PRN 8. Hx CVA with residual slurred speech deficity - No new focal deficits - Increase dose of atorvastatin 9. Depression/Anxiety - Continue home meds once verified - Refer patient to counseling services Dispo: Home today if improvement in mental status <Gina Yanez - Last Filed: 05/21/17 08:31> Attending Addendum - Attending Addendum I personally evaluated the patient and discussed the management with Dr. Yanez. I agree with the History, Examination, Assessment and Plan documented above with any addition or exceptions noted below. Patient admitted yesterday for confusion and AMS that was thought to be due to medication effect. This morning, he is alert and oriented, though he does have issues with recent memories. Workup for traumatic/toxic/infectious causes of encephalopathy negative thus far. Will discuss his status with family and see how close to baseline he is. Anticipate that he needs to decrease the amount of hydrocodone he is taking for pain as it may be hanging around longer with his ESRD. His groin pain is MSK in nature and likely related to his hip surgery. Hopeful discharge this afternoon after discussions with family. <Naveen Bob - Last Filed: 05/21/17 11:04>
--- NOTE | 2017-05-21 08:09 | CON ---
DATE OF CONSULTATION: 05/20/2017 CONSULTING PHYSICIAN: Mario Lopes M.D. REASON FOR CONSULTATION: The need for for maintenance hemodialysis. IMPRESSION: 1. hemodialysis dependent, Wednesday, , and Wednesday. The patient is due for dialysis t . 2. Altered mental status, possibly in the context of drug overdose. 3. Recent femoral fracture, status post surgical repair. PLAN: 1. The patient to be dialyzed today in accordance with his scheduled hemodialysis. 2. Further management will be depending on the clinical course, renally dose all medications. HISTORY OF PRESENT ILLNESS: History is that of a 66-year-old gentleman, who was recently discharged from [facility], status post femoral fracture surgical repair. Patient apparently brought in with a ltered mental status, believed to be in the context of narcotic overdosing and the need for continued hemodialysis necessistated this renal consultation. Past medical history, family history, social history remains unchanged from the recent hospitalizatio n. Please refer to that for details. REVIEW OF SYSTEMS: As documented in the body of the history, otherwise the comprehensive system revi ew is suboptimal given the mental status of this patient. PHYSICAL EXAMINATION: GENERAL: The patient was found not to be in any obvious respiratory or physical distress noted with the following vital signs. VITAL SIGNS: Afebrile with temperature of 98.6, pulse 86, respiratory rate 16, O2 saturation 97%, wi th blood pressure of 149/75 to 188/76. HEENT: Unremarkable. Moist oral mucosa. Neck was supple. CARDIOVASCULAR SYSTEM: First and second heart sounds were heard. EXTREMITIES: No peripheral edema. SUMMARY: A 66-year-old gentleman with end-stage renal disease, hemodialysis dependent, who presented with altered mental status, believed to be more or less in the context of narcotic overdose. Thank you for this consultation. We will follow with you.
[2017-05-21] MEDS ORDERED: Polyethylene Glycol 3350 17 GM Packet PO PRN (08:34)
[2017-05-21] MEDS ORDERED: INSULIN LISPRO 5 UNIT SQ SCH (09:00)
[2017-05-21] MEDS ORDERED: Gabapentin 300 MG CAP PO SCH (09:00)
[2017-05-21] MEDS ORDERED: Fenofibrate 48 MG TAB PO SCH (09:00)
[2017-05-21] MEDS ORDERED: Atorvastatin Calcium 20 MG TAB PO SCH ×2 (09:00)
[2017-05-21] MEDS ORDERED: Aspirin 325 mg Enteric Coated Tablet PO SCH (09:00)
[2017-05-21] MEDS ORDERED: Non-Formulary Item 1 EACH (Buspirone Hcl [Buspirone Hcl] 7.5 MG) PO SCH (09:00)
[2017-05-21] MEDS ORDERED: DULoxetine 30 MG CAP PO SCH (09:00)
[2017-05-21] MEDS ORDERED: busPIRone HCl 5 MG TAB PO SCH ×2 (09:00→21:00)
[2017-05-21] MEDS ORDERED: Non-Formulary Item 1 EACH (Cholecalciferol (Vitamin D3) [Vitamin D3] 2,000 UNIT) PO SCH (09:00)
[2017-05-21] MEDS ORDERED: Tamsulosin HCl 0.4 MG CAP PO SCH (09:00)
[2017-05-21] MEDS ORDERED: Amlodipine 10 MG TAB PO SCH (09:00)
[2017-05-21] MEDS ORDERED: hydrALAZINE 25 MG TAB PO SCH (09:00)
[2017-05-21] MEDS ORDERED: Famotidine 20 MG TAB PO SCH (09:00)
[2017-05-21] MEDS ORDERED: cloNIDine 0.1 MG TAB PO SCH (09:00)
[2017-05-21] MEDS ORDERED: lamoTRIgine 25 MG TAB PO SCH (09:00)
[2017-05-21] MEDS ORDERED: Ondansetron ODT 4 MG TAB PO PRN (09:43)
[2017-05-21 10:53] VITALS: BP 137/65; TEMP 99.9
[2017-05-21] MEDS: Heparin 5,000 UNITS/ML VIAL SC SCH (11:16)
[2017-05-21] MEDS ORDERED: Sevelamer Carbonate 800 MG TAB PO SCH (12:00)
[2017-05-21] MEDS ORDERED: Mirtazapine 15 MG TAB PO SCH (21:00)
[2017-05-21] MEDS ORDERED: MIRTAZAPINE 7.5 MG PO SCH (21:00)
[2017-05-21] MEDS ORDERED: Latanoprost 0.005% Ophth Soln 2.5 ml Bottle EA EYE SCH (21:00)
[2017-05-22] MEDS ORDERED: HumaLOG 300 UNITS/3 ML VIAL SC SCH (09:00)
--- NOTE | 2017-05-22 10:30 | DIS-2 ---
DATE OF ADMISSION: 05/20/2017 DATE OF DISCHARGE: 05/21/2017 RESIDENT: Dr. Gina Yanez. ADMITTING ATTENDING: Dr. Tejinder Huber. DISCHARGE ATTENDING: Dr. Naveen Bob. CONSULTATIONS: Dr. Martin of Nephrology was consulted for hemodialysis. PROCEDURES PERFORMED: 1. Chest x-ray, no evidence of acute cardiopulmonary disease. 2. Brain CT, limited exam, but no definite acute intracranial abnormality evident within the limitations of the study. There was some generalized cerebral and cerebellar atrophy and chronic small vessel ischemic changes. PRIMARY DIAGNOSES: 1. Encephalopathy, likely secondary to medication intoxication. 2. Mild hyponatremia. 3. Elevated troponin. 4. End-stage renal disease, on hemodialysis Wednesday, and Wednesday. 5. Major depressive disorder. SECONDARY DIAGNOSES: 1. Normocytic anemia. 2. Diabetes mellitus type 2. 3. Hypertension. 4. History of cerebrovascular accident with residual slurred speech deficit. 5. Depression/anxiety. DISCHARGE MEDICATIONS: 1. Atorvastatin calcium 40 mg oral daily. 2. Pantoprazole 40 mg oral daily. 3. Latanoprost 0.005%, ophthalmic solution 1 drop each eye at bedtime. 4. Famotidine 20 mg oral daily. 5. Aspirin 325 mg oral twice daily. 6. Lamotrigine 25 mg oral daily. 7. Tamsulosin 0.4 mg oral daily. 8. Mirtazapine 7.5 mg oral at bedtime. 9. Gabapentin 300 mg oral twice daily. 10. Fenofibrate 48 mg oral daily. 11. Clonidine 0.1 mg oral twice daily. 12. Vitamin D3 2000 units oral daily. 13. Amlodipine 10 mg oral daily. 14. Renvela 800 mg oral 3 times daily with meals. 15. Seroquel 100 mg oral daily. 16. Hydralazine 50 mg oral 3 times daily. 17. Insulin lispro 5 units subcu daily. 18. Polyethylene glycol 3350, 17 grams oral daily as needed. 19. DuoNeb 3 mL nebulizer 4 times daily as needed. 20. Buspirone 7.5 mg oral twice daily. 21. Duloxetine 30 mg oral daily. DISCONTINUED MEDICATIONS: Atorvastatin, calcium 20 mg was changed to 40 mg oral daily. 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 The patient apparently left rehab 3-4 days ago after recovering from a hip surgery. The told the Emergency Department physician that she walked into patient's room and noted him to be altered and not communicating appropriately. She is currently on the way to take him to dialysis when she just realized he was too lethargic and needed to be taken to the hospital. There was a report of slurred speech; however, he does have a history of slurred speech deficit from a prior CVA. History was limited at that time as patient was not able to answer all the questions appropriately and his was not available for questioning. The Emergency Department physician did consider giving Narcan as a reversal for narcotics in the event that this is secondary to the patient taking too many of his pain medications and a CT of the brain was performed, which was negative for any acute intracranial findings. The patient did not have any focal deficits that were concerning for new onset cerebrovascular accident. The patient remained stable throughout the course of his hospital stay. His mental status did improve. He was placed on the stroke unit for observation and q.4 hours neuro checks. At no point did he develop any focal neurological deficits. This morning, he was alert and oriented to person, place and situation. He does not seem to be oriented to time, although seems to be baseline as patient just stated that he has never been able to recall the day or month that it is. Upon further questioning it was found that he has severe depression. He was very apathetic with a flat affect and started crying on exam , saying he wished his was here and that he does not know what is wrong with him. A long discussion was had regarding his home situation. He states that he is happy at home and feels safe at home. He just feels really sad and hopeless, eats less and does not enjoying doing the things that he normally does. He does have a history of depression and is on medication for that. Patient has been out of those medications for quite some time. It was recommended that he follow up with his primary care to ensure that these medications are continued to be refilled. Additionally, it was highly recommended that he see a psychiatrist here in the very near future to discuss current depressive symptoms. Of note, he is not suicidal at this time and states he is not wanting to hurt himself or anybody else. Organic causes of encephalopathy were evaluated. CBC did not reveal anything concerning for encephalopathy. His hemoglobin was 11.4, hematocrit 35.3, which was just slightly decreased. Additionally, his sodium was slightly low at 133; however, that was up from 131 on admission. His electrolytes were balanced. BUN on admission was 75, which may have been contributing to his encephalopathy. Dr. Martin was consulted and took him to dialysis that same day. After dialysis, his creatinine was 4.08. Troponins were trended. They did go from 0.036 to 0.054 and then back down to 0.044. There was no concern for an acute coronary event. His EKG was within normal limits. Tox screen did show opiates. It is known that the patient is taking these as he just recently had hip surgery. Upon further questioning of the later this morning, she reports that she normally gives him his pain medication and she actually did not happen to give them to him last night; however, it is still present in the system which may be secondary to renal clearance and kidney failure. RPR was checked as a cause for encephalopathy and was non- reactive. The patient did great throughout the course of his hospital stay. His mentation did improve. It is very likely that his mental status changes are multifactorial to include possible medication induced versus severe depressive disorder causing apathetic nature and severe fatigue/lethargy. I strongly advised that the patient to follow up with primary care physician to have this adequately addressed as the patient is status post hip surgery and was recently discharged from rehab facility. It was recommended that he does continue to follow with his primary care regarding his right hip, as well. He was complaining of some right hip pain, which seemed actually musculoskeletal in nature. However, this should be followed to ensure that there are no complications from the recent surgery. DISPOSITION: Stable. DISCHARGE INSTRUCTIONS: 1. Location: Home. 2. Diet: Consistent carbohydrates, heart healthy. 3. Activity: Orthopedic limitations due recent hip surgery. 4. Followup: The patient is to follow up with primary care physician at the [facility] in [place] to ensure resolution/improvement in symptoms. Additionally, this is where he gets medications for insurance requirement. It was discussed at length that the medications are going to be very important for him to stay mentally stable. They were in understanding of this. BRITT
== END 2017-05-21 13:20 | disposition home or self-care (01) ==
LOC: ERS 11:06 → 2SE 13:31
PROVIDERS: ADMIT Student in an Organized Health Care Education/Training Program; ATTEND Student in an Organized Health Care Education/Training Program
DX: G93.40 Encephalopathy, unspecified (principal); E87.1 Hypo-osmolality and hyponatremia; R79.89 Other specified abnormal findings of blood chemistry; I12.0 Hypertensive chronic kidney disease with stage 5 chronic kidney disease or end stage renal disease; E11.22 Type 2 diabetes mellitus with diabetic chronic kidney disease; N18.6 End stage renal disease; D63.1 Anemia in chronic kidney disease; F32.9 Major depressive disorder, single episode, unspecified; I69.328 Other speech and language deficits following cerebral infarction; F41.9 Anxiety disorder, unspecified; Z99.2 Dependence on renal dialysis; Z86.19 Personal history of other infectious and parasitic diseases; Z98.890 Other specified postprocedural states
CPT/HCPCS: 70450; 71045; 80048; 80306; 80307; 82140; 82550; 82553; 82607; 82962 ×2; 83690; 83735; 84145; 84484 ×2; 85025; 86780; 93005; 94760; 96374; 99285; G0378; 36415; 36416; 80053; 84443; 90935; G0257; J1644; J2405; Q0162

== ENCOUNTER 2017-06-16 12:25 | Inpatient (IN) | payer MEDICARE ==
[2017-06-16 12:57] LABS: #Basophils 0.1 thou/uL (0.0-0.2); #Eosinphils 0.1 thou/uL (0.0-0.7); #Lymphocytes 1.7 thou/uL (1.20-3.40); #Monocytes 0.6 thou/uL (0.11-0.59); #Neutrophils 6.9 thou/uL (1.40-6.50); %Basophils 0.7 % (0.0-1.0); %Eosinophils 1.4 % (0.0-10.0); %Lymphocytes 17.6 % (21.0-51.0); %Monocytes 6.5 % (0.0-10.0); %Neutrophils 73.7 % (42.0-75.0); Mean Corpuscular Hemoglobin 31.1 pg (27.0-31.0); Mean Corpuscular Volume 94.3 fl (80.0-94.0); Mean Platelet Volume 6.5 fL (7.4-10.4); Platelet Count 294 thou/uL (130-400); RBC Distribution Width 14.5 % (11.5-14.5); Red Blood Cell (RBC) Count 3.23 mill/uL (4.70-6.10); White Blood Cell (WBC) Count 9.4 thou/uL (4.8-10.8)
[2017-06-16 13:21] LABS: ALT (SGPT) 21 U/L (8-55); AST (SGOT) 24 U/L (5-34); Albumin 3.5 g/dL (3.4-4.8); Alkaline Phosphatase 82 U/L (40-150); Anion Gap 12 mmol/L (10-20); BUN (Urea Nitrogen) 22 mg/dL (8.4-25.7); Bilirubin, Total 0.4 mg/dL (0.2-1.2); Calc. Creatinine Clearance 0 mL/min (70-130); Calcium 8.9 mg/dL (7.8-10.44); Carbon Dioxide 31 mmol/L (23-31); Chloride 95 mmol/L (98-107); Estimated GFR-MDRD 15; Globulin 3.6 g/dL (2.4-3.5); Glucose 142 mg/dL (80-115); Potassium 3.4 mmol/L (3.5-5.1); Protein, Total 7.1 g/dL (5.8-8.1); Sodium 135 mmol/L (136-145)
[2017-06-16 13:24] LABS: CKMB 2.3 ng/mL (0-6.6); Troponin I 0.058 ng/mL (< 0.028)
--- NOTE | 2017-06-16 13:29 | CT ---
CT ENRIKE WITHOUT CONTRAST: HISTORY: Fall, head injury, headache. FINDINGS: Comparison is made to the exam of 05/20/17. Changes of cortical atrophy and chronic small-vessel ischemic disease are again seen. The ventricula r size is stable and the basilar cisterns patent. No evidence of infarct, hemorrhage, midline shift, or abnormal extraaxial fluid collections is seen. The bony calvarium is intact. The visualized par anasal sinuses and mastoid air cells are well aerated. There is soft tissue swelling in the right pe riorbital region. IMPRESSION: No CT evidence of acute intracranial process. POS: C
--- NOTE | 2017-06-16 14:02 | RAD ---
PORTABLE AP CHEST X-RAY: 06/16/2017 HISTORY: Fall. Forehead swelling. Fever. The patient fell at home and has right hip pain. COMPARISON: 05/20/2017 FINDINGS: The cardiac silhouette and pulmonary vasculature are within normal limits. There is hazy increased d ensity at the medial right lung base, which is more than was seen on the prior study of 04/23/2017 or on the study of 05/20/2017. Findings may be related to atelectasis and patient rotation, due to the scoliotic curvature of the thoracolumbar spine, but a developing area of pneumonitis cannot be exclu ded. The lungs are otherwise clear. Post surgical changes of the right proximal humerus are again p resent. IMPRESSION: 1. Hazy increased density at the medial right lung base, which was not present on the prior exam and may be related to atelectasis, but a developing area of pneumonitis cannot be excluded. Follow-up P A and lateral chest x-ray is recommended. 2. Scoliosis, thoracolumbar spine. POS: [facility]
--- NOTE | 2017-06-16 14:06 | RAD ---
AP PELVIS RADIOGRAPH: 06/16/2017 HISTORY: Injury after fall. The patient is having right hip pain. Fever. COMPARISON: 04/25/2017 FINDINGS: Post surgical changes related to internal fixation, left hip, are again seen. There has been interva l placement of a right total hip prosthesis when compared to the prior exam. The distal portion of t he femoral component is not imaged on this exam. There is a remote fracture deformity involving the left inferior pubic ramus. No obvious acute fracture is seen, and there is no dislocation present. Vascular calcifications and phleboliths again overly the pelvis. Degenerative changes are seen in th e spine. There is osteopenia. IMPRESSION: 1. Post surgical changes of the bilateral hips with a remote fracture involving the left inferior pu bic ramus. 2. No acute osseous abnormality is seen. POS: [facility]
[2017-06-16] MEDS ORDERED: Piperacillin/Tazobactam 4.5 GM, Admixture Fee 1 EACH in Sodium Chloride 0.9% 100 ML IVPB SCH (14:45)
[2017-06-16 15:35] LABS: Bilirubin Negative (Negative); Blood, Urine Trace (Negative); Clarity CLEAR (Clear); Glucose, Urine (Dipstick) 100 mg/dL (Negative); Leukocyte Negative (Negative); Nitrite Negative (Negative); Protein, Urine (Dipstick) 300 mg/dL (Neg-Trace); Specific Gravity, Urine 1.006 (1.002-1.036); Urobilinogen 0.2 mg/dL (0.2-1.0)
[2017-06-16 15:37] LABS: Bacteria/HPF None Seen HPF (None Seen); Hyaline Casts/LPF 0-3 HYALINE CAST LPF (0-3 Hyaline); RBC/HPF 0-3 HPF (0-3); Squamous Epithelial 0-3 HPF (0-3); WBC/HPF None Seen HPF (0-3)
[2017-06-16 15:43] LABS: Renal Epithelial None Seen HPF (0-3); Transitional Epithelial NONE SEEN HPF (0-3)
[2017-06-16] MEDS ORDERED: HumaLOG 300 UNITS/3 ML VIAL SC PRN ×2 (16:44)
[2017-06-16] MEDS ORDERED: Dextrose 50% Abboject 50 ML SYRINGE SLOW IVP PRN (16:44)
[2017-06-16] MEDS ORDERED: Dextrose 5% in Water 1,000 ML IV PRN (16:44)
[2017-06-16] MEDS ORDERED: Acetaminophen 325 MG TAB PO PRN (16:44)
[2017-06-16 16:46] VITALS: BMI 20.2
--- NOTE | 2017-06-16 17:18 | PDOC.FPRHP ---
- History of Present Illness Chief Complaint: Fall History of Present Illness: Patient seen at 1537 Mr. 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 He was walking today and fell. He reported to his that he briefly blacked out. I spoke to her on the phone. She denies prolonged loss of consciousness, seizure activity, or bowel and bladder incontinence. Patient has slurred speech and is A&Ox2 at baseline. He was advised by his home health OT to go to the ER because he fell and had fallen several times since . Patient and his report he has had cough, sore throat, nasal congestion and rhinorrhea over the last few days. He also reports symptoms of fatigue, night sweats, dysuria, and anxiety. Patient also reported subjective fever I spoke to his home health nurse, Caron with [facility], who confirms similar symptoms and says his has been pretty sick lately. ED Course: Seen by Dr. Terrell. CT head and pelvic x-ray were negative. Chest x-ray - Allergies/Adverse Reactions Allergies Allergy/AdvReac Type Severity Reaction Status Date / Time No Known Allergies Allergy Unverified 04/26/17 05:03 - Home Medications Medication Instructions Recorded Confirmed Type Amlodipine [Norvasc] 10 mg PO DAILY 05/21/17 06/16/17 History Cholecalciferol (Vitamin D3) 2,000 unit PO DAILY 05/21/17 06/16/17 History [Vitamin D3] Gabapentin [Neurontin] 300 mg PO HS 05/21/17 06/16/17 History Ipratropium/Albuterol Sulfate 3 ml NEB QID PRN 05/21/17 05/21/17 History [DuoNeb] Latanoprost [Latanoprost 0.05% 1 drop EA EYE HS 05/21/17 06/16/17 History Ophth] Mirtazapine 15 mg PO HS 05/21/17 06/16/17 History Pantoprazole [Protonix] 40 mg PO DAILY 05/21/17 06/16/17 History QUEtiapine Fumarate [SEROquel] 300 mg PO QPM- 05/21/17 06/16/17 History Sevelamer Carbonate [Renvela] 800 mg PO TID-WM 05/21/17 06/16/17 History Tamsulosin HCl [Flomax] 0.4 mg PO DAILY 05/21/17 06/16/17 History cloNIDine [Catapres] 0.1 mg PO BID 05/21/17 06/16/17 History hydrALAZINE [Apresoline] 50 mg PO TID 05/21/17 06/16/17 History Atorvastatin Calcium 20 mg PO DAILY 06/16/17 06/16/17 History DULoxetine [Cymbalta] 20 mg PO DAILY 06/16/17 06/16/17 History Insulin Detemir 100 UNITS/ML 10 unit SQ HS 06/16/17 06/16/17 History [Levemir] busPIRone HCl [Buspirone HCl] 10 mg PO BID 06/16/17 06/16/17 History hydrOXYzine [Atarax] 25 mg PO DAILY PRN 06/16/17 06/16/17 History - History PMHx: PSHx: FHx: Social: - Review of Systems ROS unobtainable: other (Patient A&Ox2 at baseline and is a poor historian) General: reports: fever/chills, night sweats, fatigue. denies: weight/appetite/ sleep changes Eyes: reports: vision changes. denies: eye pain ENT: reports: nasal congestion, rhinorrhea Respiratory: denies: cough, congestion, shortness of breath Cardiovascular: reports: edema. denies: chest pain Gastrointestinal: denies: nausea, vomiting, diarrhea, constipation Genitourinary: reports: dysuria. denies: polyuria Skin: denies: rashes, lesions Musculoskeletal: denies: pain, tenderness Neurological: reports: syncope, weakness. denies: seizure Psychological: reports: anxiety. denies: depression - Vital signs BP: [] HR: [] RR: [] Tmax: [] Pox: []% on [] Wt: [] - Physical Exam Constitutional: NAD, awake, alert and oriented -Constitutional: Oriented to person and place HEENT: normocephalic and atraumatic, PERRLA, EOMI, conjunctiva clear, TM's clear and intact, oropharynx clear -HEENT: Absent of dentition Neck: supple, FROM, trachea midline, no LAD Chest: no-tender to palpation, no lesions Heart: RRR, normal S1/S2, no murmurs/rubs/gallops, pulses present, no edema Lungs: CTAB, no respiratory distress, good air movement, no rales/rhonchi, no wheezing, no retractions Abdomen: soft, non-tender, bowel sounds present, no masses/distention, no hernias Musculoskeletal: normal structure, normal tone Neurological: DTRs 2+, other (Slurred speech) Skin: good turgor, capillary refill <2 seconds -Skin: Abrasion on right side of forehead Heme/Lymphatic: no unusual bruising or bleeding, no purpura, no petechia, no LAD Psychiatric: normal mood and affect FMR H&P: Results - Labs Result Diagrams: 06/16/17 12:49 06/16/17 12:49 Lab results: WBC 9.4 thou/uL (4.8-10.8) 06/16/17 12:49 Hgb 10.0 g/dL (14.0-18.0) L 06/16/17 12:49 Hct 30.4 % (42.0-52.0) L 06/16/17 12:49 MCV 94.3 fl (80.0-94.0) H 06/16/17 12:49 Plt Count 294 thou/uL (130-400) 06/16/17 12:49 Neutrophils % 73.7 % (42.0-75.0) 06/16/17 12:49 Sodium 135 mmol/L (136-145) L 06/16/17 12:49 Potassium 3.4 mmol/L (3.5-5.1) L 06/16/17 12:49 Chloride 95 mmol/L (98-107) L 06/16/17 12:49 Carbon Dioxide 31 mmol/L (23-31) 06/16/17 12:49 BUN 22 mg/dL (8.4-25.7) 06/16/17 12:49 Creatinine 3.98 mg/dL (0.6-1.3) H 06/16/17 12:49 Glucose 142 mg/dL (80-115) H 06/16/17 12:49 Calcium 8.9 mg/dL (7.8-10.44) 06/16/17 12:49 Total Bilirubin 0.4 mg/dL (0.2-1.2) 06/16/17 12:49 AST 24 U/L (5-34) 06/16/17 12:49 ALT 21 U/L (8-55) 06/16/17 12:49 Alkaline Phosphatase 82 U/L (40-150) 06/16/17 12:49 CK-MB (CK-2) 2.3 ng/mL (0-6.6) 06/16/17 12:49 Serum Total Protein 7.1 g/dL (5.8-8.1) 06/16/17 12:49 Albumin 3.5 g/dL (3.4-4.8) 06/16/17 12:49 Urine Ketones Negative mg/dL (Negative) 06/16/17 15:12 Urine Blood Trace (Negative) H 06/16/17 15:12 Urine Nitrite Negative (Negative) 06/16/17 15:12 Ur Leukocyte Esterase Negative (Negative) 06/16/17 15:12 Urine RBC 0-3 HPF (0-3) 06/16/17 15:12 Urine WBC None Seen HPF (0-3) 06/16/17 15:12 Ur Squamous Epith Cells 0-3 HPF (0-3) 06/16/17 15:12 Urine Bacteria None Seen HPF (None Seen) 06/16/17 15:12 - EKG Interpretation EKG: NSR. No ischemic changes FMR H&P: A/P - Problem List (1) Aspiration pneumonitis Current Visit: Yes Status: Acute Code(s): J69.0 - PNEUMONITIS DUE TO INHALATION OF FOOD AND VOMIT Assessment and Plan: Suspected aspiration pneumonitis - Place in telemetry - Patient afebrile and not hypoxic - White count normal - Low index of suspicion for pneumonia - Blood culture pending - Given vanc and Zosyn in ER - 2 view chest x-ray ordered - Will hold antibiotics and observe patient. Restart antibiotics if patient has fever, abnormal vital signs, or if indicated by x-ray or outstanding labs (2) Fall Current Visit: Yes Status: Acute Code(s): W19.XXXA - UNSPECIFIED FALL, INITIAL ENCOUNTER Assessment and Plan: Patient is poor historian. Suspect mechanical fall as patient is deconditioned. CT and pelvic x-ray negative. (3) Dysuria Current Visit: Yes Status: Acute Code(s): R30.0 - DYSURIA Assessment and Plan: UA and urine culture ordered. Dose of antibiotics given in ER. Will hold antibiotics unless labs indicate or otherwise indicated (4) Macrocytic anemia Current Visit: Yes Status: Chronic Code(s): D53.9 - NUTRITIONAL ANEMIA, UNSPECIFIED Assessment and Plan: Chronic. Stable from April. Repeat CBC in a.m. (5) Elevated troponin Current Visit: No Status: Chronic Code(s): R74.8 - ABNORMAL LEVELS OF OTHER SERUM ENZYMES Assessment and Plan: Symptoms not consistent with ACS. Likely related to ESRD. No EKG changes and CK- MB wnl. Will repeat and monitor for symptoms (6) Diabetes mellitus, type II Current Visit: No Status: Chronic Qualifiers: Diabetes mellitus complication status: with unspecified complications Diabetes mellitus automatic spooler operator insulin use: with group home use Qualified Code(s) : E11.8 - Type 2 diabetes mellitus with unspecified complications; Z79.4 - detention (current) use of insulin; Z79.4 - artist color separation (current) use of insulin; Z79.4 - artist color separation (current) use of insulin; Z79.4 - detention (current) use of insulin Assessment and Plan: Home Lantus, accuchecks, SSI (7) ESRD (end stage renal disease) on dialysis Current Visit: No Status: Chronic Code(s): N18.6 - END STAGE RENAL DISEASE; Z99.2 - DEPENDENCE ON RENAL DIALYSIS Assessment and Plan: On Wednesday, , Wednesday dialysis. Dr. Martin consulted (8) Hypertension Current Visit: No Status: Chronic Code(s): I10 - ESSENTIAL (PRIMARY) HYPERTENSION Qualifiers: Hypertension type: essential hypertension Qualified Code(s): I10 - Essential (primary) hypertension Assessment and Plan: Home meds restarted (9) History of CVA (cerebrovascular accident) Current Visit: No Status: Chronic Code(s): Z86.73 - PRSNL HX OF TIA (TIA), AND CEREB INFRC W/O RESID DEFICITS Assessment and Plan: Deficits appear stable compared to previous admission notes. CT head negative (10) BPH (benign prostatic hyperplasia) Current Visit: No Status: Chronic Code(s): N40.0 - BENIGN PROSTATIC HYPERPLASIA WITHOUT LOWER URINRY TRACT SYMP Assessment and Plan: Home Flomax restarted (11) Anxiety and depression Current Visit: No Status: Chronic Code(s): F41.9 - ANXIETY DISORDER, UNSPECIFIED; F32.9 - MAJOR DEPRESSIVE DISORDER, SINGLE EPISODE, UNSPECIFIED Assessment and Plan: Home meds restarted (12) Physical deconditioning Current Visit: Yes Status: Acute Code(s): R53.81 - OTHER MALAISE Assessment and Plan: PT and OT consulted (13) Full code status Current Visit: Yes Status: Acute Code(s): Z78.9 - OTHER SPECIFIED HEALTH STATUS Assessment and Plan: Patient stated he wanted to be full code in the ED. Previous admissions show he was DNR and his home health nurse reports he was DNR on hospital admission in the past. Patient's confirmed that she wanted him to be full code as well. FMR H&P: Upper Level - Plan Date/Time: 06/16/17 1712 I, [], have evaluated this patient and agree with findings/plan as outlined by events intern resident. Pertinent changes/additions are listed here.
[2017-06-16] MEDS ORDERED: hydrOXYzine 25 MG TAB PO PRN (18:32)
[2017-06-16] MEDS: cloNIDine 0.1 MG TAB PO SCH (20:05)
[2017-06-16] MEDS: busPIRone HCl 10 MG TAB PO SCH (20:05)
[2017-06-16] MEDS: hydrALAZINE 25 MG TAB PO SCH (20:05)
[2017-06-16] MEDS: Latanoprost 0.005% Ophth Soln 2.5 ml Bottle EA EYE SCH (20:07)
[2017-06-16 20:22] LABS: CKMB 2.7 ng/mL (0-6.6); Troponin I 0.047 ng/mL (< 0.028)
--- NOTE | 2017-06-16 20:35 | RAD ---
CHEST TWO VIEWS 06/16/17 HISTORY: Abnormal chest radiograph. COMPARISON: Earlier single view exam on the same date. FINDINGS: The cardiac silhouette and pulmonary vasculature are unremarkable. Mediastinum is midline. The opacit y of the right medial lung base on the recent portable chest radiograph does not persist on the curre nt two view exam. No lobar consolidation or pneumothorax are apparent. Posterior costophrenic angles are excluded by overlying artifact. The internal fixation of the right humerus is apparent. IMPRESSION: No evidence of persistent right basilar infiltrate. Chronic type findings are stable. POS: [facility]
[2017-06-16] MEDS ORDERED: Mirtazapine 15 MG TAB PO SCH (21:00)
[2017-06-16] MEDS ORDERED: Insulin Detemir 100 UNITS/ML 10 UNITS in Pre-Filled Syringe SC SCH (21:00)
[2017-06-16] MEDS ORDERED: Gabapentin 300 MG CAP PO SCH (21:00)
[2017-06-16] MEDS ORDERED: FLU VACC TS2017-18 (>65YR) 0.5 ML SYRINGE IM ONE (21:00)
--- NOTE | 2017-06-16 23:35 | CON ---
DATE OF CONSULTATION: 06/16/2017 CONSULTING PHYSICIAN: Mario Lopes M.D. REQUESTING PHYSICIAN: [facility]. REASON FOR CONSULTATION: The need for maintenance hemodialysis. IMPRESSION: 1. End-stage renal disease, on hemodialysis Wednesday, , and Wednesday schedule. 2. Anemia of chronic kidney disease. 3. Recurrent falls, query cause. PLAN: 1. There is no emergent indication for renal replacement therapy; therefore, patient to stay on his schedule Wednesday, and Wednesday, will be dialyzed tomorrow with ultrafiltration as tolerated by hemodynamics. 2. Further management will be dependent on the clinical course as well as further recommendation fro m the primary service. HISTORY OF PRESENT ILLNESS: History is that of a 66-year-old gentleman with end-stage renal disease, hemodialysis dependent, who presented here with recurrent falls. The patient lately has been in and out of hospital and rehab, and represented here again. The need for maintenance hemodialysis necess itated in this consultation. PAST MEDICAL HISTORY: Significant for CVA with some slurred speech. PAST MEDICAL HISTORY: Type 2 diabetes, end-stage renal disease, hepatitis C and hypertension. MEDICATIONS: Reviewed and as documented on [employer]. ALLERGIES: To MORPHINE. FAMILY HISTORY: Not significantly related to presenting illness. SOCIAL HISTORY: Denies alcohol, tobacco or illicit drug use. REVIEW OF SYSTEMS: As documented in the body of the history. All the other systems were reviewed an d were found not to be significantly related to presenting illness. PHYSICAL EXAMINATION: VITAL SIGNS: The patient noted with a temperature of 98.3, pulse 75, respiratory rate of 18, O2 sat 97% with a blood pressure of 160/66. HEENT: Unremarkable. Moist oral mucosa. No conjunctival injection or icterus. NECK: Supple. CARDIOVASCULAR SYSTEM: First and second heart sounds were heard. RESPIRATORY SYSTEM: Clear to auscultation. DIGESTIVE SYSTEM: Revealed a benign abdomen with positive bowel sound. EXTREMITIES: No peripheral edema. SKIN: No new gross rash. LYMPHATICS: No peripheral lymphadenopathy. SUMMARY: A 66-year-old gentleman with end-stage renal disease who presented here with recurrent fall s. Thank you for this consultation. We will follow with you.
[2017-06-17 05:16] LABS: #Eosinphils 0.1 thou/uL (0.0-0.7); #Lymphocytes 0.9 thou/uL (1.20-3.40); #Monocytes 0.9 thou/uL (0.11-0.59); #Neutrophils 12.2 thou/uL (1.40-6.50); %Basophils 0.3 % (0.0-1.0); %Eosinophils 0.4 % (0.0-10.0); %Lymphocytes 6.3 % (21.0-51.0); %Monocytes 6.1 % (0.0-10.0); %Neutrophils 86.9 % (42.0-75.0); Hemoglobin 10.1 g/dL (14.0-18.0); Mean Corpuscular HGB CONC 32.8 g/dL (32.0-36.0); Mean Corpuscular Hemoglobin 30.5 pg (27.0-31.0); Mean Corpuscular Volume 92.7 fl (80.0-94.0); Mean Platelet Volume 6.1 fL (7.4-10.4); Platelet Count 312 thou/uL (130-400); RBC Distribution Width 14.9 % (11.5-14.5); Red Blood Cell (RBC) Count 3.32 mill/uL (4.70-6.10); White Blood Cell (WBC) Count 14.1 thou/uL (4.8-10.8)
[2017-06-17 05:40] LABS: Anion Gap 12 mmol/L (10-20); BUN (Urea Nitrogen) 28 mg/dL (8.4-25.7); Calc. Creatinine Clearance 15 mL/min (70-130); Calcium 8.8 mg/dL (7.8-10.44); Carbon Dioxide 31 mmol/L (23-31); Chloride 96 mmol/L (98-107); Estimated GFR-MDRD 13; Sodium 136 mmol/L (136-145)
[2017-06-17 05:44] LABS: Glucose 49 mg/dL (80-115); Potassium 2.9 mmol/L (3.5-5.1)
[2017-06-17] MEDS: Potassium Chloride 20 MEQ in Premix Bag 1 BAG IVPB SCH ×2 (06:50→08:47)
[2017-06-17] MEDS: Sevelamer Carbonate 800 MG TAB PO SCH ×3 (08:28→17:54)
[2017-06-17] MEDS: cloNIDine 0.1 MG TAB PO SCH ×3 (08:28→19:54)
[2017-06-17] MEDS: Potassium Chloride 20 MEQ TAB PO SCH ×2 (08:28→17:53)
[2017-06-17] MEDS: Tamsulosin HCl 0.4 MG CAP PO SCH (08:29)
[2017-06-17] MEDS: Amlodipine 10 MG TAB PO SCH ×3 (08:29→17:53)
[2017-06-17] MEDS: busPIRone HCl 10 MG TAB PO SCH ×2 (08:30→19:55)
[2017-06-17] MEDS: hydrALAZINE 25 MG TAB PO SCH ×4 (08:30→19:53)
[2017-06-17] MEDS: Atorvastatin Calcium 20 MG TAB PO SCH (08:30)
--- NOTE | 2017-06-17 08:33 | PDOC.FM ---
- Subjective Subjective: This morning patient states he slept well last night. States that he fell last night because he was feeling week. He denies N/V, headache, or light-headedness this AM. - Objective Vital Signs & Weight: Vital Signs (12 hours) Temp Pulse Resp BP Pulse Ox 06/17/17 07:43 97.7 F 75 16 146/69 H 96 06/17/17 04:00 98 F 74 18 129/73 93 L Weight Weight 67.721 kg I&O: 06/16/17 06/17/17 06/18/17 06:59 06:59 06:59 Intake Total 100 Balance 100 Result Diagrams: 06/17/17 04:56 06/17/17 04:56 <Orville Cortés - Last Filed: 06/17/17 09:17> - Objective Vital Signs & Weight: Vital Signs (12 hours) Pulse BP 06/17/17 10:59 75 146/69 H Result Diagrams: 06/17/17 04:56 06/17/17 04:56 <Evonne Cardoso - Last Filed: 06/17/17 12:32> Phys Exam - Physical Examination HEENT: PERRLA, moist MMs Neck: no nodes, full ROM Respiratory: no wheezing, clear to auscultation bilateral Cardiovascular: RRR, no significant murmur, no rub Gastrointestinal: soft, non-tender, no distention, positive bowel sounds Musculoskeletal: no edema, pulses present Hx of stroke, slurred speech, L sided weakness Psychiatric: normal affect, A&O x 3 Skin: no rash, normal turgor, cap refill <2 seconds <Orville Cortés - Last Filed: 06/17/17 09:17> Dx/Plan (1) Aspiration pneumonitis Code(s): J69.0 - PNEUMONITIS DUE TO INHALATION OF FOOD AND VOMIT Status: Acute (2) Dysuria Code(s): R30.0 - DYSURIA Status: Acute (3) Fall Code(s): W19.XXXA - UNSPECIFIED FALL, INITIAL ENCOUNTER Status: Acute (4) Full code status Code(s): Z78.9 - OTHER SPECIFIED HEALTH STATUS Status: Acute (5) Physical deconditioning Code(s): R53.81 - OTHER MALAISE Status: Acute (6) Macrocytic anemia Code(s): D53.9 - NUTRITIONAL ANEMIA, UNSPECIFIED Status: Chronic (7) Community acquired bacterial pneumonia Code(s): J15.9 - UNSPECIFIED BACTERIAL PNEUMONIA Status: Acute (8) Hypoglycemia Code(s): E16.2 - HYPOGLYCEMIA, UNSPECIFIED Status: Acute (9) Hyponatremia Code(s): E87.1 - HYPO-OSMOLALITY AND HYPONATREMIA Status: Acute (10) Pneumonia Code(s): J18.9 - PNEUMONIA, UNSPECIFIED ORGANISM Status: Acute (11) BPH (benign prostatic hyperplasia) Code(s): N40.0 - BENIGN PROSTATIC HYPERPLASIA WITHOUT LOWER URINRY TRACT SYMP Status: Chronic (12) ESRD (end stage renal disease) on dialysis Code(s): N18.6 - END STAGE RENAL DISEASE; Z99.2 - DEPENDENCE ON RENAL DIALYSIS Status: Chronic - Plan Plan: # Suspected aspiration pneumonitis - Place in telemetry - Patient afebrile and not hypoxic - White count increased to 14.1 - Blood culture pending - Given vanc and Zosyn in ER - Started Augmentin BID 2/2 WBC and fall - 2 view chest x-ray ordered # Frequent falls - Hx of CVA - blood sugars not well controlled, adjust insulin regimen # DM - will adjust insulin regimen # ESRD - Dialysis T, TH, S - Nephro consulted # HTN - home meds # Hx CVA - PT, OT, ST # BPH - home meds # Code status - full <Orville Cortés - Last Filed: 06/17/17 09:17> Attending Addendum - Attending Addendum Date/Time: 06/17/17 1231 I personally evaluated the patient and discussed the management with Dr. Cortés on 06/17/17. I agree with the History, Examination, Assessment and Plan documented above with any addition or exceptions noted below. Patient is quite somnolent this morning but arousable. Is oriented x3 once aroused, but falls asleep during further questions. Does agree to go to dialysis now. Will dialyze this morning. He is on multiple sedating night- time meds, will hold these for tonight. In addition is snoring heavily, likely has some component of INDERJIT. Will check ABG to rule out hypercapnia. Will replete electrolytes during dialysis. <Evonne Cardoso - Last Filed: 06/17/17 12:32>
[2017-06-17] MEDS ORDERED: Amoxicillin/Potassium Clav 875 MG TAB PO SCH (09:00)
--- NOTE | 2017-06-17 09:56 | PDOC.EVN ---
Event Note - Event Note Event Note: Called to bedside by nursing b/c patient is very sleepy, refusing dialysis, and not taking pills evaluated patient at bedside - patient is easy to arouse with sternal rub - falls back to sleep quickly - knows name, , year, location, and president - switched augmentin to unasyn IV - check ABG - stop remeron, seroquel, gabapentin - consider outpt. sleep study <Orville Cortés - Last Filed: 06/17/17 09:56> Attending Addendum - Attending Addendum Date/Time: 06/17/17 1247 See my addendum to Dr. Cortés's progress note from this morning. I was present during his examination of the patient and agree with his findings. <Evonne Cardoso - Last Filed: 06/17/17 12:47>
[2017-06-17] MEDS: Ampicillin/Sulbactam 3 GM in Sodium Chloride 0.9% 100 ML IVPB SCH ×3 (11:00→22:05)
[2017-06-17 12:21] LABS: Actual Bicarbonate (HCO3a) 28.2 mEq/L (22-26); Base Excess (BEa) 3.7 mEq/L (0 (+/-) 2.5); CO2 Tension 42.4 mmHg (35.0-45.0); Hematocrit-ABG 30.7 % (42.0-52.0); Hemoglobin (Hb) 9.4 g/dL (14.0-18.0); O2 Tension (PaO2) 83.9 mmHg (80.0-100.0); pH, Arterial 7.44 (7.35-7.45)
[2017-06-17 12:22] LABS: Analyzer IN Cardio OR; Calcium, Ionized 1.1 mmol/L (1.12-1.30); Puncture Site LRA
[2017-06-17] MEDS: Latanoprost 0.005% Ophth Soln 2.5 ml Bottle EA EYE SCH (19:55)
[2017-06-17] MEDS ORDERED: Insulin Detemir 100 UNITS/ML 5 UNITS in Pre-Filled Syringe 1 EACH SC SCH (21:00)
--- NOTE | 2017-06-17 22:06 | PRG ---
DATE OF SERVICE: 06/17/2017 SUBJECTIVE: The patient was seen and examined. Initially, the patient refused dialysis; however, th e patient continued to become very somnolent and altered. The patient was noted with the following v ital signs. OBJECTIVE: VITAL SIGNS: Afebrile with temperature 98.5, pulse 82, blood pressure 150/69, respiratory rate of 18 , O2 sat of 96%. HEENT: Unremarkable. CARDIOVASCULAR SYSTEM: First and second heart sounds were heard. RESPIRATORY SYSTEM: Clear to auscultation. DIGESTIVE SYSTEM: Revealed a benign abdomen. EXTREMITIES: No peripheral edema. SKIN: No new gross rash. LYMPHATICS: No peripheral lymphadenopathy. LABORATORY INVESTIGATION: Showed a white count of 14,100, hemoglobin 10.1. Blood sugar 49. Creatin ine 4.57 with BUN of 28 and potassium 2.9. IMPRESSION: 1. End-stage renal disease, hemodialysis dependent. 2. Severe hypokalemia. 3. Mental status change, query cause. 4. Hypoglycemia. PLAN: 1. The patient is undergoing hemodialysis with ultrafiltration as tolerated by hemodynamics. 2. Higher potassium bath was being used to address the hypokalemia in this patient. 3. Further management will be dependent on the clinical course.
[2017-06-18] MEDS: Ampicillin/Sulbactam 3 GM in Sodium Chloride 0.9% 100 ML IVPB SCH ×2 (05:00→09:25)
[2017-06-18 06:52] LABS: Hemoglobin 10.1 g/dL (14.0-18.0); Mean Corpuscular HGB CONC 33.3 g/dL (32.0-36.0); Mean Corpuscular Hemoglobin 30.9 pg (27.0-31.0); Mean Corpuscular Volume 92.8 fl (80.0-94.0); Mean Platelet Volume 5.9 fL (7.4-10.4); Platelet Count 305 thou/uL (130-400); Red Blood Cell (RBC) Count 3.27 mill/uL (4.70-6.10); White Blood Cell (WBC) Count 9.1 thou/uL (4.8-10.8)
[2017-06-18 07:13] LABS: Anion Gap 11 mmol/L (10-20); BUN (Urea Nitrogen) 14 mg/dL (8.4-25.7); Calc. Creatinine Clearance 22 mL/min (70-130); Calcium 8.6 mg/dL (7.8-10.44); Carbon Dioxide 32 mmol/L (23-31); Chloride 100 mmol/L (98-107); Estimated GFR-MDRD 20; Glucose 89 mg/dL (80-115); Potassium 4.3 mmol/L (3.5-5.1); Sodium 139 mmol/L (136-145)
[2017-06-18] MEDS: Tamsulosin HCl 0.4 MG CAP PO SCH (09:21)
[2017-06-18] MEDS: Sevelamer Carbonate 800 MG TAB PO SCH (09:21)
[2017-06-18] MEDS: Atorvastatin Calcium 20 MG TAB PO SCH (09:22)
[2017-06-18] MEDS: busPIRone HCl 10 MG TAB PO SCH (09:22)
[2017-06-18] MEDS: hydrALAZINE 25 MG TAB PO SCH (09:23)
[2017-06-18] MEDS: Potassium Chloride 20 MEQ TAB PO SCH (09:23)
[2017-06-18] MEDS: cloNIDine 0.1 MG TAB PO SCH (09:24)
[2017-06-18] MEDS: Amlodipine 10 MG TAB PO SCH (09:24)
--- NOTE | 2017-06-18 09:25 | PDOC.FM ---
- Subjective Subjective: This morning patient states he is feeling much more awake. He is A&O x2 which is his baseline. He denies any shortness of breath, nausea, vomiting, or diarrhea. No issues with sleep overnight. States he feels ready to go home. - Objective Vital Signs & Weight: Vital Signs (12 hours) Temp Pulse Resp BP Pulse Ox 06/18/17 08:00 98.9 F 83 16 143/69 H 97 06/18/17 07:46 98.9 F 83 16 143/69 H 97 06/18/17 04:00 98.8 F 81 18 148/70 H 98 06/18/17 00:00 98.7 F 83 18 145/64 H 94 L I&O: 06/17/17 06/18/17 06/19/17 06:59 06:59 06:59 Intake Total 920 Output Total 3500 Balance -2580 Result Diagrams: 06/18/17 06:41 06/18/17 06:41 <Orville Gillespie - Last Filed: 06/18/17 09:26> - Objective I&O: 06/18/17 06/19/17 06/20/17 06:59 06:59 06:59 Intake Total 920 Output Total 3500 Balance -2580 Result Diagrams: 06/18/17 06:41 06/18/17 06:41 <Evonne Cardoso - Last Filed: 06/19/17 09:29> Phys Exam - Physical Examination HEENT: PERRLA, moist MMs Neck: no nodes, full ROM Respiratory: no wheezing, clear to auscultation bilateral Cardiovascular: RRR, no significant murmur Gastrointestinal: soft, non-tender, no distention, positive bowel sounds Musculoskeletal: no edema, pulses present chronic L sided deficit from stroke, slurred speech Psychiatric: normal affect Skin: no rash, normal turgor, cap refill <2 seconds <Orville Gillespie - Last Filed: 06/18/17 09:26> Dx/Plan (1) Aspiration pneumonitis Code(s): J69.0 - PNEUMONITIS DUE TO INHALATION OF FOOD AND VOMIT Status: Acute (2) Dysuria Code(s): R30.0 - DYSURIA Status: Acute (3) Fall Code(s): W19.XXXA - UNSPECIFIED FALL, INITIAL ENCOUNTER Status: Acute (4) Full code status Code(s): Z78.9 - OTHER SPECIFIED HEALTH STATUS Status: Acute (5) Physical deconditioning Code(s): R53.81 - OTHER MALAISE Status: Acute (6) Macrocytic anemia Code(s): D53.9 - NUTRITIONAL ANEMIA, UNSPECIFIED Status: Chronic (7) Community acquired bacterial pneumonia Code(s): J15.9 - UNSPECIFIED BACTERIAL PNEUMONIA Status: Acute (8) Hypoglycemia Code(s): E16.2 - HYPOGLYCEMIA, UNSPECIFIED Status: Acute (9) Hyponatremia Code(s): E87.1 - HYPO-OSMOLALITY AND HYPONATREMIA Status: Acute (10) Pneumonia Code(s): J18.9 - PNEUMONIA, UNSPECIFIED ORGANISM Status: Acute (11) BPH (benign prostatic hyperplasia) Code(s): N40.0 - BENIGN PROSTATIC HYPERPLASIA WITHOUT LOWER URINRY TRACT SYMP Status: Chronic (12) ESRD (end stage renal disease) on dialysis Code(s): N18.6 - END STAGE RENAL DISEASE; Z99.2 - DEPENDENCE ON RENAL DIALYSIS Status: Chronic - Plan Plan: # Suspected aspiration pneumonitis -- Patient afebrile and not hypoxic - White count increased to 14.1 - Blood culture pending - Given vanc and Zosyn in ER - Started unasyn 2/2 WBC increase and fall # Frequent falls - Hx of CVA - blood sugars trended low 1st day of admission - decreased detemir by half to 5U, blood sugars improved - switched augmentin to unasyn IV - stopped remeron, seroquel, gabapentin - consider outpt. sleep study # DM - adjusted as above # ESRD - Dialysis T, TH, S - Nephro consulted # HTN - home meds # Hx CVA - PT, OT, ST # BPH - home meds # Code status - full Dispo: plan for d/c today <Orville Gilelspie - Last Filed: 06/18/17 09:26> Attending Addendum - Attending Addendum Date/Time: 06/19/17927 I personally evaluated the patient and discussed the management with Dr. Gillespie on 06/18/17. I agree with the History, Examination, Assessment and Plan documented above with any addition or exceptions noted below. Patient back to baseline this morning. Encephalopathy likely medication related. Discharge home without Seroquel, gabapentin, or other sedating evening meds. <Evonne Cardoso - Last Filed: 06/19/17 09:29>
[2017-06-18 12:27] VITALS: BP 138/63; TEMP 97.8
--- NOTE | 2017-06-19 00:41 | DIS-2 ---
DATE OF ADMISSION: 06/16/2017 DATE OF DISCHARGE: 06/18/2017 CONSULTING PHYSICIAN: Orville Cortés MD ADMITTING ATTENDING: Catrachito Arguelles MD DISCHARGE ATTENDING: Evonne Cardoso DO CONSULTATIONS: None. PROCEDURES: None. PRIMARY DIAGNOSIS: Medication-induced encephalopathy. SECONDARY DIAGNOSES: Hypoglycemia, aspiration pneumonia. DISCHARGE MEDICATIONS: Augmentin 875 b.i.d. for 5 days, Levemir 5 units, amlodipine 10 mg daily, carmen rvastatin 20 mg daily, buspirone 10 mg daily, clonidine 0.1 mg daily, duloxetine 20 mg daily, hydrala zine 50 mg t.i.d., hydroxyzine 20 mg daily p.r.n., DuoNeb p.r.n., Protonix 40 mg daily, Flomax 0.4 mg daily. DISCONTINUED MEDICATIONS: Gabapentin, Seroquel, Remeron. 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 He pr esented to the ED after a fall. The patient's reports more frequent falls as of late. She repo rts he has been more sleepy as of late. Patient and report that he has cough, sore throat, nasa l congestion and rhinorrhea over the last few days. Patient reported fatigue, night sweats, dysuria, and subjective fever. The first night of admission, the patient was found to be hypoglycemic in the morning down to the hig h 40s and low 50s. Patient's insulin dose was halved to 5 units. Additionally, the morning of the f irst admit, the patient was excessively sleepy. His sedating meds including gabapentin, Seroquel, an d Remeron were discontinued. The following morning, the patient's level of awareness was much improv ed. The patient had a brain CT in the ER which was negative for acute changes. Patient received hem odialysis while in the hospital. DISPOSITION: Stable. DISCHARGE INSTRUCTIONS: 1. Location: Home. 2. Diet: Regular. 3. Activity: As tolerated. 4. Followup: Follow up with PCP in 3-5 days. Note to PCP: The patient's insulin dose was halved from time of admit, please check on sugars at matilda ointment. Also, please check on the patient's level of arousal as his gabapentin, Seroquel, and Karli peggy were discontinued during this hospitalization.
== END 2017-06-18 12:41 | disposition home health service (06) | DRG 91 ==
LOC: ERS 12:25 → INTOOBSV 15:16 → T4-B 15:16 → OBSVTOIN 06-17 09:53
PROVIDERS: ADMIT Student in an Organized Health Care Education/Training Program; ATTEND Student in an Organized Health Care Education/Training Program
PROC: 5A1D70Z Performance of Urinary Filtration, Intermittent, Less than 6 Hours Per Day (ICD-10-PCS; principal; 2017-06-17)
DX: G92 Toxic encephalopathy (principal); J69.0 Pneumonitis due to inhalation of food and vomit; E11.649 Type 2 diabetes mellitus with hypoglycemia without coma; E11.22 Type 2 diabetes mellitus with diabetic chronic kidney disease; N18.6 End stage renal disease; I69.354 Hemiplegia and hemiparesis following cerebral infarction affecting left non-dominant side; I12.0 Hypertensive chronic kidney disease with stage 5 chronic kidney disease or end stage renal disease; E87.1 Hypo-osmolality and hyponatremia; T42.6X5A Adverse effect of other antiepileptic and sedative-hypnotic drugs, initial encounter; T43.595A Adverse effect of other antipsychotics and neuroleptics, initial encounter; T43.025A Adverse effect of tetracyclic antidepressants, initial encounter; T38.3X5A Adverse effect of insulin and oral hypoglycemic [antidiabetic] drugs, initial encounter; Z79.4 Long term (current) use of insulin; R29.6 Repeated falls; D63.1 Anemia in chronic kidney disease; Z99.2 Dependence on renal dialysis; I69.328 Other speech and language deficits following cerebral infarction; R30.0 Dysuria; N40.0 Benign prostatic hyperplasia without lower urinary tract symptoms; B19.20 Unspecified viral hepatitis C without hepatic coma; F41.9 Anxiety disorder, unspecified; F32.9 Major depressive disorder, single episode, unspecified; D53.9 Nutritional anemia, unspecified; E87.6 Hypokalemia; Z23 Encounter for immunization
CPT/HCPCS: 36415; 36416; 51701; 70450; 71045; 71046; 72170; 80048; 80053; 81003; 81015; 82553; 82805; 84484; 85025; 85027; 87040; 87086; 90471; 90682; 90935; 93005; 96365; 96366; A4216; G0008; G0257; G8978-GP-CL; G8979-GP-CJ; G8987-GO-CJ; G8988-GO-CH; G9165-GN-CM; G9166-GN-CI; J0295; J1815; J2543; J3370; J3480; J7050; Q2036

== ENCOUNTER 2017-06-25 16:46 | Emergency (ER) | payer MEDICARE ==
--- NOTE | 2017-06-25 17:30 | RAD ---
PORTABLE CHEST 1 VIEW: HISTORY: Syncope. FINDINGS: Comparison is made with the exam of 06/16/17. The heart size is normal. The aorta is tortuous. The lungs are expanded with stable chronic changes . No confluent areas of consolidation, pneumothorax, or pleural effusions are seen. There are posto p changes in the right proximal humerus. IMPRESSION: No acute process. POS: [facility]
[2017-06-25 17:35] LABS: #Basophils 0.1 thou/uL (0.0-0.2); #Eosinphils 0.1 thou/uL (0.0-0.7); #Lymphocytes 1.9 thou/uL (1.20-3.40); #Monocytes 0.7 thou/uL (0.11-0.59); #Neutrophils 6.6 thou/uL (1.40-6.50); %Basophils 0.9 % (0.0-1.0); %Eosinophils 0.7 % (0.0-10.0); %Lymphocytes 20.3 % (21.0-51.0); %Monocytes 7.2 % (0.0-10.0); %Neutrophils 70.8 % (42.0-75.0); Hemoglobin 11.3 g/dL (14.0-18.0); Mean Corpuscular HGB CONC 32.9 g/dL (32.0-36.0); Mean Corpuscular Hemoglobin 30.9 pg (27.0-31.0); Mean Corpuscular Volume 93.8 fl (80.0-94.0); Mean Platelet Volume 6.7 fL (7.4-10.4); Platelet Count 273 thou/uL (130-400); RBC Distribution Width 14.4 % (11.5-14.5); Red Blood Cell (RBC) Count 3.67 mill/uL (4.70-6.10); White Blood Cell (WBC) Count 9.3 thou/uL (4.8-10.8)
--- NOTE | 2017-06-25 17:41 | CT ---
CT BRAIN WITHOUT CONTRAST: HISTORY: Altered mental status. Multiple falls and vomiting. The patient is currently on dialysis. FINDINGS: Comparison is made with the exam dated 06/16/17. Changes of cortical atrophy and chronic small-vessel ischemic disease are again seen. The ventricular size is stable and the basilar cisterns patent. No evidence of acute infarct, hemorrhage, midline shift, or abnormal extraaxial fluid collections is seen. The bony calvarium is intact. The visualized paranasal sinuses and mastoid air cells are well aerated. Soft tissue swelling in the right periorbital region is again seen. IMPRESSION: No CT evidence of acute intracranial process. POS: [facility]
[2017-06-25 17:58] LABS: ALT (SGPT) 21 U/L (8-55); AST (SGOT) 36 U/L (5-34); Albumin 3.5 g/dL (3.4-4.8); Alkaline Phosphatase 91 U/L (40-150); Anion Gap 16 mmol/L (10-20); BUN (Urea Nitrogen) 28 mg/dL (8.4-25.7); Bilirubin, Total 0.4 mg/dL (0.2-1.2); CK (CPK) 65 U/L (30-200); Calc. Creatinine Clearance 0 mL/min (70-130); Calcium 8.9 mg/dL (7.8-10.44); Carbon Dioxide 29 mmol/L (23-31); Chloride 94 mmol/L (98-107); Estimated GFR-MDRD 14; Globulin 4.1 g/dL (2.4-3.5); Glucose 398 mg/dL (80-115); Lipase 61 U/L (8-78); Potassium 4.6 mmol/L (3.5-5.1); Protein, Total 7.6 g/dL (5.8-8.1); Sodium 134 mmol/L (136-145)
[2017-06-25 18:02] LABS: CKMB 1.3 ng/mL (0-6.6); Troponin I 0.024 ng/mL (< 0.028)
[2017-06-25] MEDS ORDERED: Ondansetron HCl/PF 4 MG/2 ML Vial ONE (18:40)
--- NOTE | 2017-06-25 20:13 | RAD ---
LUMBAR SPINE THREE VIEWS: 06/25/17 HISTORY: Trauma. FINDINGS/IMPRESSION: There are compression fractures (old) involving the L2 and L3 vertebral bodies. These were seen on th e CT abdomen and pelvis of 06/12/16. There is dextroscoliosis of the lumbar spine. Degenerative change s are present. POS: [facility]
--- NOTE | 2017-06-25 20:15 | RAD ---
AP PELVIS: 06/25/17 HISTORY: Trauma. Pelvic pain. FINDINGS/IMPRESSION: Comparison is made with exam of 06/16/17. Postop changes of the right femoral head prostheses placement and angle compression device on the lef t proximal femur remain in place in good position and alignment. No acute fracture or dislocation is seen. Old fracture of the left inferior pubic ramus is redemonstrated. POS: [facility]
== END 2017-06-25 20:57 | disposition home or self-care (01) ==
LOC: ERS 16:46
DX: R11.2 Nausea with vomiting, unspecified (principal); E86.0 Dehydration; I69.328 Other speech and language deficits following cerebral infarction; I12.0 Hypertensive chronic kidney disease with stage 5 chronic kidney disease or end stage renal disease; E11.22 Type 2 diabetes mellitus with diabetic chronic kidney disease; N18.6 End stage renal disease; F41.9 Anxiety disorder, unspecified; F32.9 Major depressive disorder, single episode, unspecified; Z79.4 Long term (current) use of insulin; Z79.82 Long term (current) use of aspirin; Z79.899 Other long term (current) drug therapy; Z99.2 Dependence on renal dialysis
CPT/HCPCS: 70450; 71045; 72100; 72170; 80053; 82553; 83690; 84484; 85025; 93005; 96361; 96374; J2405

== ENCOUNTER 2017-08-21 08:37 | Emergency (ER) | payer MEDICARE ==
[2017-08-21] MEDS ORDERED: Adacel (T-DAP) 0.5 ML VIAL ONE (08:45)
[2017-08-21] MEDS ORDERED: Lidocaine 1% w/Epinephrine 1:100K 20 ML VIAL ONE (09:06)
--- NOTE | 2017-08-21 09:11 | CT ---
CT HEAD WITHOUT CONTRAST: Date: 08/21/17 Multiple axial tomograms obtained through the head without IV enhancement. HISTORY: Fall with injury to head and face. COMPARISON: 06/16/17. FINDINGS: Mild cortical volume loss. There is no evidence of intracranial hemorrhage or contusion. No evidence of acute infarct. Sinuses and mastoids are aerated. Calvarium appears intact. IMPRESSION: No acute abnormality. POS: [facility]
--- NOTE | 2017-08-21 09:14 | CT ---
CT CERVICAL SPINE NONCONTRAST: Date: 08/21/17 HISTORY: Fall. Neck injury. FINDINGS: Vertebral body heights are maintained. Fusion of the C3 and C4 vertebrae have the appearance of conge nital process. There is osteophytosis throughout the vertebral bodies and facets with mild to moderat e central canal stenoses and scattered foraminal stenoses. Cervicothoracic junction intact. No acute fracture or dislocation. Mild depression of the T1 vertebral body has the appearance of an old proces s. IMPRESSION: Degenerative changes cervical spine. No acute osseous abnormalities are demonstrated. POS: [facility]
== END 2017-08-21 09:50 | disposition home or self-care (01) ==
LOC: ERS 08:37
DX: S01.111A Laceration without foreign body of right eyelid and periocular area, initial encounter (principal); I12.0 Hypertensive chronic kidney disease with stage 5 chronic kidney disease or end stage renal disease; E11.22 Type 2 diabetes mellitus with diabetic chronic kidney disease; N18.6 End stage renal disease; F41.9 Anxiety disorder, unspecified; F32.9 Major depressive disorder, single episode, unspecified; Z86.73 Personal history of transient ischemic attack (TIA), and cerebral infarction without residual deficits; Z99.2 Dependence on renal dialysis; Z79.899 Other long term (current) drug therapy; Z79.82 Long term (current) use of aspirin; W01.198A Fall on same level from slipping, tripping and stumbling with subsequent striking against other object, initial encounter
CPT/HCPCS: 12011; 70450; 72125; 90471; 90715; J2001

== ENCOUNTER 2017-11-11 10:01 | Emergency (ER) | payer MEDICARE ==
[2017-11-11 10:59] LABS: #Eosinphils 0.1 thou/uL (0.0-0.7); #Lymphocytes 1.6 thou/uL (1.20-3.40); #Monocytes 0.4 thou/uL (0.11-0.59); %Basophils 0.9 % (0.0-1.0); %Eosinophils 2.2 % (0.0-10.0); %Lymphocytes 30.7 % (21.0-51.0); %Monocytes 7.7 % (0.0-10.0); %Neutrophils 58.5 % (42.0-75.0); Hemoglobin 14.1 g/dL (14.0-18.0); Mean Corpuscular HGB CONC 32.5 g/dL (32.0-36.0); Mean Corpuscular Hemoglobin 30.4 pg (27.0-31.0); Mean Corpuscular Volume 93.6 fL (78.0-98.0); Mean Platelet Volume 6.8 fL (7.4-10.4); Platelet Count 192 thou/uL (130-400); RBC Distribution Width 13.9 % (11.5-14.5); Red Blood Cell (RBC) Count 4.63 mill/uL (4.70-6.10); White Blood Cell (WBC) Count 5.1 thou/uL (4.8-10.8)
[2017-11-11 11:10] LABS: PTT 32.8 SEC (22.9-36.1)
[2017-11-11 11:14] LABS: INR-International Normal Ratio 0.9; Prothrombin Time 12.5 SEC (12.0-14.7)
[2017-11-11 11:24] LABS: ALT (SGPT) 16 U/L (8-55); AST (SGOT) 18 U/L (5-34); Alkaline Phosphatase 61 U/L (40-150); Anion Gap 16 mmol/L (10-20); BUN (Urea Nitrogen) 47 mg/dL (8.4-25.7); Bilirubin, Total 0.7 mg/dL (0.2-1.2); CK (CPK) 73 U/L (30-200); Calc. Creatinine Clearance 0 mL/min (70-130); Calcium 9.2 mg/dL (7.8-10.44); Carbon Dioxide 28 mmol/L (23-31); Chloride 99 mmol/L (98-107); Estimated GFR-MDRD 10; Globulin 3.6 g/dL (2.4-3.5); Glucose 162 mg/dL (80-115); Lipase 98 U/L (8-78); Magnesium 2.2 mg/dL (1.6-2.6); Phosphorus 5.8 mg/dL (2.3-4.7); Potassium 3.9 mmol/L (3.5-5.1); Protein, Total 7.6 g/dL (5.8-8.1); Sodium 139 mmol/L (136-145)
--- NOTE | 2017-11-11 11:27 | RAD ---
PORTABLE AP CHEST RADIOGRAPH: Date: 11-11-17 History: Altered mental status. Comparison: 06-25-17 FINDINGS: Cardiac silhouette and pulmonary vasculature are within normal limits. The lungs are clear. Soft tiss ue density overlies the lateral left hemithorax. Post-surgical changes right proximal humerus are vis ualized. There has been no interval change compared to the prior exam. IMPRESSION: No acute cardiopulmonary process. POS: [facility]
--- NOTE | 2017-11-11 11:29 | CT ---
CT OF HEAD NONCONTRAST: Comparison: 08-21-17 Clinical history: Syncope. FINDINGS: There is stable mild prominence of the ventricular system with parenchymal volume loss. There is mild chronic ischemic disease without evidence of intracranial hemorrhage, mass effect, or midline shift. IMPRESSION: No acute intracranial hemorrhage or mass effect. POS: [facility]
--- NOTE | 2017-11-11 12:07 | RAD ---
AP VIEW PELVIS TWO VIEWS RIGHT HIP: Date: 11-11-17 History: Injury after a fall. Comparison: AP pelvis, 06-25-17 FINDINGS: Post-surgical changes related to right total hip prosthesis are noted. There is a metal plate and dyn amic compression screw transfixing the left proximal femur transfixing a remote intertrochanteric lef t hip fracture. There is no acute fracture or dislocation. Remote healed fracture of the left inferio r pubic ramus is again seen. Basilar calcifications are seen in the iliac and femoral arteries. Phleboliths overlie the pelvis. IMPRESSION: Post-surgical changes bilateral hips without evidence of an acute osseous abnormality. No fracture is seen. POS: [facility]
[2017-11-11 12:16] LABS: Bilirubin Negative (Negative); Blood, Urine Negative (Negative); Clarity CLEAR (Clear); Glucose, Urine (Dipstick) 100 mg/dL (Negative); Leukocyte Negative (Negative); Nitrite Negative (Negative); Protein, Urine (Dipstick) 300 mg/dL (Neg-Trace); Specific Gravity, Urine 1.012 (1.002-1.036)
[2017-11-11 12:19] LABS: Bacteria/HPF None Seen HPF (None Seen); Hyaline Casts/LPF 0-3 HYALINE CAST LPF (0-3 Hyaline); Pathc Cast-AUWi Flag 0.43 (0-2.49); Squamous Epithelial 0-3 HPF (0-3); WBC/HPF 0-3 HPF (0-3)
[2017-11-11 12:26] LABS: Renal Epithelial 0-3 HPF (0-3); Transitional Epithelial 0-3 HPF (0-3)
== END 2017-11-11 12:48 | disposition home or self-care (01) ==
LOC: ERS 10:01
DX: S70.01XA Contusion of right hip, initial encounter (principal); E11.22 Type 2 diabetes mellitus with diabetic chronic kidney disease; I12.0 Hypertensive chronic kidney disease with stage 5 chronic kidney disease or end stage renal disease; N18.6 End stage renal disease; F41.9 Anxiety disorder, unspecified; F32.9 Major depressive disorder, single episode, unspecified; Z79.4 Long term (current) use of insulin; Z79.899 Other long term (current) drug therapy; Z79.82 Long term (current) use of aspirin; W06.XXXA Fall from bed, initial encounter
CPT/HCPCS: 51701; 70450; 71045; 72170; 80053; 81003; 81015; 82550; 82553; 83690; 83735; 84100; 84484; 85025; 85610; 85730; 93005

== ENCOUNTER 2017-12-01 19:14 | Emergency (ER) | payer MEDICARE ==
[2017-12-01 20:26] LABS: #Basophils 0.1 thou/uL (0.0-0.2); #Eosinphils 0.1 thou/uL (0.0-0.7); #Lymphocytes 1.6 thou/uL (1.20-3.40); #Monocytes 0.4 thou/uL (0.11-0.59); #Neutrophils 3.4 thou/uL (1.40-6.50); %Basophils 1.6 % (0.0-1.0); %Eosinophils 1.7 % (0.0-10.0); %Lymphocytes 29.1 % (21.0-51.0); %Monocytes 7.1 % (0.0-10.0); %Neutrophils 60.5 % (42.0-75.0); Hemoglobin 13.9 g/dL (14.0-18.0); Mean Corpuscular HGB CONC 33.7 g/dL (32.0-36.0); Mean Corpuscular Hemoglobin 30.8 pg (27.0-31.0); Mean Corpuscular Volume 91.4 fL (78.0-98.0); Mean Platelet Volume 7.1 fL (7.4-10.4); Platelet Count 174 thou/uL (130-400); RBC Distribution Width 12.9 % (11.5-14.5); White Blood Cell (WBC) Count 5.6 thou/uL (4.8-10.8)
[2017-12-01 20:49] LABS: ALT (SGPT) 17 U/L (8-55); AST (SGOT) 17 U/L (5-34); Albumin 3.9 g/dL (3.4-4.8); Alkaline Phosphatase 69 U/L (40-150); Anion Gap 14 mmol/L (10-20); BUN (Urea Nitrogen) 37 mg/dL (8.4-25.7); Bilirubin, Total 0.6 mg/dL (0.2-1.2); Calc. Creatinine Clearance 0 mL/min (70-130); Carbon Dioxide 29 mmol/L (23-31); Chloride 97 mmol/L (98-107); Estimated GFR-MDRD 12; Globulin 3.1 g/dL (2.4-3.5); Glucose 109 mg/dL (80-115); Potassium 4.1 mmol/L (3.5-5.1); Sodium 136 mmol/L (136-145)
== END 2017-12-01 21:00 | disposition home or self-care (01) ==
LOC: ERS 19:14
DX: I12.0 Hypertensive chronic kidney disease with stage 5 chronic kidney disease or end stage renal disease (principal); N18.6 End stage renal disease; E11.22 Type 2 diabetes mellitus with diabetic chronic kidney disease; F41.9 Anxiety disorder, unspecified; F32.9 Major depressive disorder, single episode, unspecified
CPT/HCPCS: 36415; 80053; 85025; 93005

== ENCOUNTER 2017-12-11 12:08 | Emergency (ER) | payer MEDICARE ==
--- NOTE | 2017-12-11 14:25 | RAD ---
RIGHT HIP 2 VIEWS: HISTORY: Injury with pain. FINDINGS: A right hip prosthesis is in place. The components appear in adequate position and alignment. No ac ravinder fracture identified. POS: [facility]
--- NOTE | 2017-12-11 15:00 | RAD ---
AP PELVIS: HISTORY: Injury with bilateral hip pain. FINDINGS: There is a right hip prosthesis. The left hip has been previously fixated with compression screw. C omponents appear in adequate position and alignment. No acute fracture identified. There is deformi ty of the left rami which appears stable. IMPRESSION: No acute fracture identified. POS: [facility]
--- NOTE | 2017-12-11 15:05 | CT ---
CT BRAIN WITHOUT COTNRAST: HISTORY: Injury, fall, head pain. FINDINGS: Comparison is made with the exam of 02/11/18. Changes of cortical atrophy and chronic small-vessel ischemic disease are again seen. The ventricula r size is stable and the basilar cisterns patent. No evidence of acute infarct, hemorrhage, midline shift, or abnormal extraaxial fluid collection is seen. The bony calvarium is intact. The visualize d paranasal sinuses and mastoid air cells are well aerated. IMPRESSION: No CT evidence of acute intracranial process. POS: [facility]
--- NOTE | 2017-12-11 15:10 | CT ---
CT CERVICAL SPINE WITH CORONAL AND SAGITTAL REFORMATIONS: HISTORY: Fall, neck pain. FINDINGS: Comparison is made with the exam of 08/21/17. Fusion at C3-4 level is again seen. Degenerative changes are again noted. No acute fracture or subl uxation is seen. No facet malalignment is identified. The anterior wedging of the superior end plat e of T1 vertebral body is stable. IMPRESSION: No evidence of acute bony injury to the cervical spine. POS: [facility]
== END 2017-12-11 14:42 | disposition home or self-care (01) ==
LOC: ERS 12:08
DX: S70.01XA Contusion of right hip, initial encounter (principal); I12.0 Hypertensive chronic kidney disease with stage 5 chronic kidney disease or end stage renal disease; E11.22 Type 2 diabetes mellitus with diabetic chronic kidney disease; N18.6 End stage renal disease; B19.20 Unspecified viral hepatitis C without hepatic coma; Z86.73 Personal history of transient ischemic attack (TIA), and cerebral infarction without residual deficits; F41.9 Anxiety disorder, unspecified; F32.9 Major depressive disorder, single episode, unspecified; F03.90 Unspecified dementia, unspecified severity, without behavioral disturbance, psychotic disturbance, mood disturbance, and anxiety; Z79.899 Other long term (current) drug therapy; Z79.82 Long term (current) use of aspirin; Z99.2 Dependence on renal dialysis; W18.30XA Fall on same level, unspecified, initial encounter
CPT/HCPCS: 70450; 72125; 72170; 93005

== ENCOUNTER 2017-12-16 11:14 | Emergency (ER) | payer MEDICARE ==
[2017-12-16 11:46] LABS: #Basophils 0.1 thou/uL (0.0-0.2); #Eosinphils 0.2 thou/uL (0.0-0.7); #Lymphocytes 1.7 thou/uL (1.20-3.40); #Monocytes 0.3 thou/uL (0.11-0.59); #Neutrophils 3.7 thou/uL (1.40-6.50); %Basophils 0.9 % (0.0-1.0); %Eosinophils 2.8 % (0.0-10.0); %Monocytes 5.4 % (0.0-10.0); Mean Corpuscular HGB CONC 34.5 g/dL (32.0-36.0); Mean Corpuscular Hemoglobin 30.9 pg (27.0-31.0); Mean Corpuscular Volume 89.5 fL (78.0-98.0); Mean Platelet Volume 7.5 fL (7.4-10.4); Platelet Count 140 thou/uL (130-400); RBC Distribution Width 12.9 % (11.5-14.5); White Blood Cell (WBC) Count 5.9 thou/uL (4.8-10.8)
--- NOTE | 2017-12-16 12:02 | RAD ---
RIGHT HIP 2 VIEWS: Date: 12/16/17 HISTORY: Fall. COMPARISON: Hip radiographs dated 12/11/17. FINDINGS: There is healing fracture right ischium. Right hip arthroplasty appears to be intact, although limite d without a lateral radiograph. IMPRESSION: Likely healing right ischial fracture. POS: [facility]
[2017-12-16 12:11] LABS: ALT (SGPT) 14 U/L (8-55); AST (SGOT) 14 U/L (5-34); Albumin 3.5 g/dL (3.4-4.8); Alkaline Phosphatase 72 U/L (40-150); Anion Gap 19 mmol/L (10-20); BUN (Urea Nitrogen) 78 mg/dL (8.4-25.7); Bilirubin, Total 0.4 mg/dL (0.2-1.2); Calc. Creatinine Clearance 0 mL/min (70-130); Calcium 8.5 mg/dL (7.8-10.44); Carbon Dioxide 17 mmol/L (23-31); Chloride 106 mmol/L (98-107); Estimated GFR-MDRD 6; Globulin 3.2 g/dL (2.4-3.5); Glucose 135 mg/dL (80-115); Potassium 4.8 mmol/L (3.5-5.1); Protein, Total 6.7 g/dL (5.8-8.1); Sodium 137 mmol/L (136-145)
[2017-12-16 12:16] LABS: CKMB 3.2 ng/mL (0-6.6); Troponin I 0.015 ng/mL (< 0.028)
== END 2017-12-16 15:20 | disposition home or self-care (01) ==
LOC: ERS 11:14
DX: S70.01XA Contusion of right hip, initial encounter (principal); I12.0 Hypertensive chronic kidney disease with stage 5 chronic kidney disease or end stage renal disease; N18.6 End stage renal disease; E11.22 Type 2 diabetes mellitus with diabetic chronic kidney disease; W19.XXXA Unspecified fall, initial encounter
CPT/HCPCS: 36415; 80053; 82553; 84484; 85025

== ENCOUNTER 2018-01-25 09:41 | Emergency (ER) | payer MEDICARE ==
[2018-01-25 10:28] LABS: #Eosinphils 0.1 thou/uL (0.0-0.7); #Lymphocytes 1.4 thou/uL (1.20-3.40); #Monocytes 0.5 thou/uL (0.11-0.59); #Neutrophils 4.2 thou/uL (1.40-6.50); %Basophils 0.6 % (0.0-1.0); %Eosinophils 1.9 % (0.0-10.0); %Lymphocytes 22.6 % (21.0-51.0); %Monocytes 8.2 % (0.0-10.0); %Neutrophils 66.6 % (42.0-75.0); Hemoglobin 12.5 g/dL (14.0-18.0); Mean Corpuscular HGB CONC 32.6 g/dL (32.0-36.0); Mean Corpuscular Hemoglobin 29.7 pg (27.0-31.0); Mean Corpuscular Volume 91.1 fL (78.0-98.0); Mean Platelet Volume 7.5 fL (7.4-10.4); Platelet Count 163 thou/uL (130-400); RBC Distribution Width 14.5 % (11.5-14.5); White Blood Cell (WBC) Count 6.3 thou/uL (4.8-10.8)
[2018-01-25 10:47] LABS: ALT (SGPT) 15 U/L (8-55); AST (SGOT) 19 U/L (5-34); Albumin 3.4 g/dL (3.4-4.8); Alkaline Phosphatase 43 U/L (40-150); Anion Gap 19 mmol/L (10-20); BUN (Urea Nitrogen) 84 mg/dL (8.4-25.7); Bilirubin, Total 0.7 mg/dL (0.2-1.2); Calc. Creatinine Clearance 0 mL/min (70-130); Calcium 8.7 mg/dL (7.8-10.44); Carbon Dioxide 19 mmol/L (23-31); Chloride 103 mmol/L (98-107); Estimated GFR-MDRD 7; Globulin 2.9 g/dL (2.4-3.5); Glucose 100 mg/dL (80-115); Magnesium 1.9 mg/dL (1.6-2.6); Potassium 4.5 mmol/L (3.5-5.1); Protein, Total 6.3 g/dL (5.8-8.1); Sodium 136 mmol/L (136-145)
[2018-01-25 10:51] LABS: CKMB 3.9 ng/mL (0-6.6); Troponin I 0.037 ng/mL (< 0.028)
== END 2018-01-25 12:00 | disposition home or self-care (01) ==
LOC: ERS 09:41
DX: R19.7 Diarrhea, unspecified (principal); I12.0 Hypertensive chronic kidney disease with stage 5 chronic kidney disease or end stage renal disease; N18.6 End stage renal disease; E11.22 Type 2 diabetes mellitus with diabetic chronic kidney disease; Z99.2 Dependence on renal dialysis; F41.9 Anxiety disorder, unspecified; F32.9 Major depressive disorder, single episode, unspecified; Z79.899 Other long term (current) drug therapy; Z86.73 Personal history of transient ischemic attack (TIA), and cerebral infarction without residual deficits
CPT/HCPCS: 36415; 80053; 82553; 83735; 84484; 85025; 93005; 96360

== ENCOUNTER 2018-04-23 18:56 | Emergency (ER) | payer MEDICARE ==
[2018-04-23 19:33] LABS: #Basophils 0.1 thou/uL (0.0-0.2); #Eosinphils 0.1 thou/uL (0.0-0.7); #Lymphocytes 1.6 thou/uL (1.20-3.40); #Monocytes 0.4 thou/uL (0.11-0.59); #Neutrophils 3.6 thou/uL (1.40-6.50); %Basophils 1.1 % (0.0-1.0); %Eosinophils 1.4 % (0.0-10.0); %Lymphocytes 27.2 % (21.0-51.0); %Monocytes 7.7 % (0.0-10.0); %Neutrophils 62.6 % (42.0-75.0); Hemoglobin 11.2 g/dL (14.0-18.0); Mean Corpuscular HGB CONC 34.1 g/dL (32.0-36.0); Mean Corpuscular Hemoglobin 31.3 pg (27.0-31.0); Mean Corpuscular Volume 91.7 fL (78.0-98.0); Mean Platelet Volume 7.4 fL (7.4-10.4); Platelet Count 199 thou/uL (130-400); RBC Distribution Width 13.1 % (11.5-14.5); Red Blood Cell (RBC) Count 3.58 mill/uL (4.70-6.10); White Blood Cell (WBC) Count 5.8 thou/uL (4.8-10.8)
[2018-04-23 19:56] LABS: ALT (SGPT) 13 U/L (8-55); AST (SGOT) 17 U/L (5-34); Albumin 3.5 g/dL (3.4-4.8); Alkaline Phosphatase 40 U/L (40-150); Anion Gap 17 mmol/L (10-20); BUN (Urea Nitrogen) 9 mg/dL (8.4-25.7); Bilirubin, Total 0.6 mg/dL (0.2-1.2); Calc. Creatinine Clearance 0 mL/min (70-130); Calcium 8.9 mg/dL (7.8-10.44); Carbon Dioxide 28 mmol/L (23-31); Chloride 97 mmol/L (98-107); Estimated GFR-MDRD 29; Globulin 3.1 g/dL (2.4-3.5); Glucose 76 mg/dL (80-115); Lipase 58 U/L (8-78); Potassium 3.5 mmol/L (3.5-5.1); Protein, Total 6.6 g/dL (5.8-8.1); Sodium 138 mmol/L (136-145)
== END 2018-04-23 19:56 | disposition left against medical advice (07) ==
LOC: ERS 18:56
DX: Z53.21 Procedure and treatment not carried out due to patient leaving prior to being seen by health care provider (principal)
CPT/HCPCS: 36415; 80053; 83690; 85025

== ENCOUNTER 2018-06-18 07:37 | Inpatient (IN) | payer MEDICARE ==
[2018-06-18] MEDS ORDERED: methylPREDNISolone Sod Succ/PF 125 MG/2 ML VIAL ONE (08:19)
[2018-06-18 08:35] LABS: #Basophils 0.1 thou/uL (0.0-0.2); #Eosinphils 0.1 thou/uL (0.0-0.7); #Lymphocytes 1.1 thou/uL (1.20-3.40); #Monocytes 0.7 thou/uL (0.11-0.59); #Neutrophils 7.6 thou/uL (1.40-6.50); %Basophils 0.8 % (0.0-1.0); %Eosinophils 1.4 % (0.0-10.0); %Lymphocytes 11.4 % (21.0-51.0); %Monocytes 6.8 % (0.0-10.0); %Neutrophils 79.6 % (42.0-75.0); Hemoglobin 10.9 g/dL (14.0-18.0); Mean Corpuscular Hemoglobin 30.6 pg (27.0-31.0); Mean Corpuscular Volume 92.8 fL (78.0-98.0); Mean Platelet Volume 7.5 fL (7.4-10.4); Platelet Count 185 thou/uL (130-400); RBC Distribution Width 12.9 % (11.5-14.5); Red Blood Cell (RBC) Count 3.58 mill/uL (4.70-6.10); White Blood Cell (WBC) Count 9.5 thou/uL (4.8-10.8)
--- NOTE | 2018-06-18 08:44 | RAD ---
CHEST 1 VIEW: Date: 06/18/18 HISTORY: Weakness. Cough and congestion. COMPARISON: 11/11/17. FINDINGS: Cardiac silhouette is magnified by projection. Pulmonary vasculature is now engorged with patchy bila teral perihilar and bibasilar infiltrates, and blunting of each costophrenic angle. Mediastinum is mi dline. No evidence of pneumothorax. IMPRESSION: Pulmonary edema with probable small bilateral pleural effusions. POS: [facility]
[2018-06-18 08:57] LABS: ALT (SGPT) 11 U/L (8-55); AST (SGOT) 17 U/L (5-34); Albumin 3.9 g/dL (3.4-4.8); Alkaline Phosphatase 47 U/L (40-150); Anion Gap 28 mmol/L (10-20); BUN (Urea Nitrogen) 87 mg/dL (8.4-25.7); Bilirubin, Total 0.6 mg/dL (0.2-1.2); Calc. Creatinine Clearance 0 mL/min (70-130); Calcium 9.5 mg/dL (7.8-10.44); Carbon Dioxide 15 mmol/L (23-31); Chloride 100 mmol/L (98-107); Estimated GFR-MDRD 6; Globulin 3.3 g/dL (2.4-3.5); Glucose 111 mg/dL (80-115); Potassium 5.5 mmol/L (3.5-5.1); Protein, Total 7.2 g/dL (5.8-8.1); Sodium 137 mmol/L (136-145)
[2018-06-18 09:23] LABS: CKMB 11.6 ng/mL (0-6.6)
[2018-06-18] MEDS ORDERED: Aspirin Chewable 81 MG TAB ONE (11:36)
[2018-06-18 12:02] LABS: Troponin I 0.819 ng/mL (< 0.028)
[2018-06-18 12:13] LABS: HBSAB Concentration 6.63 mIU/mL; HBSAg Index 0.52 S/CO (0-0.99); Hep B Surf AB Non-Reactive (NonReactive); Hep B Surf Ag Non-Reactive S/CO (NonReactive)
--- NOTE | 2018-06-18 13:19 | HP ---
CHIEF COMPLAINT: Shortness of breath and congestion. HISTORY OF PRESENT ILLNESS: The patient is a 67-year-old male, who was admitted to the hospital because of shortness of breath. Apparently, when he called EMS, his pulse oximetry was in the 80s on room air, so he was taken to the emergency room for further evaluation. Apparently, he was congested for approximately 1 week. He did not have any fever or chills. He denied any chest pain, but he stated that he missed a couple of hemodialysis sessions because he felt bad. He received one DuoNeb and placed on O2 and his pulse oximetry improved to 98%. PAST MEDICAL HISTORY: Positive for: 1. Dialysis patient three times a week sessions. 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 2. Diabetes mellitus. 3. History of previous CVA with residual speech impairment. 4. History of hepatitis C. 5. Hypertension. 6. Anxiety. 7. Depression. PAST SURGICAL HISTORY: None. SOCIAL HISTORY: He denies any alcohol intake. He denies any drug use. He does not smoke cigarettes. Last cigarette he smokes was approximately 20 years ago. MEDICATIONS: 1. Docusate sodium 100 mg capsules once a day. 2. [place] 10/325 mg three times a day. 3. Diazepam 15 mg once a day. 4. Hydralazine 50 mg three times a day. 5. Atorvastatin 20 mg once a day. 6. Aspirin 81 mg once a day. 7. Amlodipine 10 mg once a day. 8. Pantoprazole 40 mg once a day. 9. Flomax 0.4 mg once a day. 10. Vitamin D3 (cholecalciferol) 2000 units once a day. 11. Insulin once a day, unclear dose. FAMILY HISTORY: Mother had a lot of pain issue and she passed in her 70s and he does not know how his father passed. REVIEW OF SYSTEMS: CONSTITUTIONAL: He denies any fever or chills. EYES: Negative for eye pain or eye discharge. ENT: Negative for nasal congestion or epistaxis. CARDIOVASCULAR: Negative for chest pain or palpitations. RESPIRATORY: Positive for shortness of breath and positive for some cough. GI: Negative for vomiting or diarrhea. : Negative for hematuria or dysuria. He makes some urine. He goes to hemodialysis. NEURO: Negative for headaches or dizziness. HEMOLYMPHATIC: Negative for easy bruising or clotting abnormalities. PSYCHIATRY: Positive for depression and negative for suicidal or homicidal ideations. LABORATORY DATA: Labs showed white count of 9.5, hemoglobin 10.9, hematocrit 33.2, platelet count 185,000. Sodium of 137, potassium 5.5, chloride 100, CO2 of 15, BUN 87, creatinine 8.74. BNP 1879. The rest of chemistry within normal limits except for CK-MB which is 11.6 and troponin I 0.243. EKG showed normal sinus rhythm with some flipped T-waves at V5 and V6. Chest x-ray showed increased interstitial markings and possible some pleural effusion. IMPRESSION: 1. Fluid overload secondary to missed two hemodialysis. 2. History of chronic obstructive pulmonary disease. 3. Hypertension. 4. History of cerebrovascular accident with residual slurred speech. 5. Diabetes mellitus. 6. History of fractured right femur and status post open reduction and internal fixation. PHYSICAL EXAMINATION: VITAL SIGNS: Blood pressure is 146/70, pulse is 97, respiratory rate is 22, and pulse oximetry is 97%. HEENT: His head is atraumatic and normocephalic. He moans. He states that he has some pain in his right thigh, which is chronic. His eyes are PERRLA. Sclerae are nonicteric. Conjunctivae pinkish. Oral mucosa is slightly dry. NECK: Supple. LUNGS: Breath sounds diminished at both bases with bilateral crackles and wheezing mild at the bases. HEART: S1, S2 normal. No S3. No S4. ABDOMEN: Soft and nontender. Bowel sounds are present. No organomegaly. EXTREMITIES: He has some tenderness on palpation of the right hip area. There is 1+ peripheral edema around both ankles, more on the left than on the right. NEUROLOGIC: He follows my commands. He moves his all four extremities. There is no any motor deficit. Cranial nerves are intact. His speech is somewhat slurred. Labs showed as mentioned above. PLAN: Plan is admission to [facility] for observation. Condition is fair. Activity is bedrest and bathroom privileges. IV Hep-Lock, hemodialysis, supervised by Dr. Martin who is on consult, his acrobatic dancer. The patient received Solu-Medrol in the emergency room. I am not going to continue Solu-Medrol. I do not think there is exacerbation of COPD. This is just a clear volume overload from non-getting dialyzed x2. We will reconcile his home medications. We will do SCDs for DVT prophylaxis. His troponin I is up to 0.2. We will get an additional two sets of troponins along with CK-MB and echocardiogram to see whether he needs to be seen by external grinder. Job ID: [id number]
[2018-06-18 14:54] LABS: Troponin I 1.493 ng/mL (< 0.028)
[2018-06-18] MEDS ORDERED: Enoxaparin Sodium 30 MG/0.3 ML SYRINGE ONE (17:20)
[2018-06-18] MEDS ORDERED: Enoxaparin Sodium 40 MG/0.4 ML SYRINGE ONE (17:20)
[2018-06-18] MEDS ORDERED: Dextrose 50% Abboject 50 ML SYRINGE SLOW IVP PRN (19:51)
[2018-06-18] MEDS ORDERED: Dextrose 5% in Water 1,000 ML IV PRN (19:51)
--- NOTE | 2018-06-18 21:24 | CON ---
DATE OF CONSULTATION: 06/18/2018 CONSULTING PHYSICIAN: Mario Lopes MD REQUESTING PHYSICIAN: Martínez Calvert MD, ER physician. REASON FOR CONSULTATION: Need for hemodialysis. IMPRESSION: 1. End-stage renal disease hemodialysis on Wednesday, , and Wednesday schedule. 2. Pulmonary congestion in the context of skipped dialysis. 3. Hypoxic respiratory failure related to pulmonary congestion plus or minus chronic obstructive pulmonary disease exacerbation. PLAN: 1. The patient to be dialyzed today in accordance with the schedule with ultrafiltration as tolerated by hemodynamics. 2. Hemodialysis to address also the hyperkalemia. 3. Renally dose all medications for extremely low GFR. HISTORY OF PRESENT ILLNESS: A 67-year-old gentleman with end-stage renal disease, on hemodialysis on Wednesday, , and Wednesday schedule, who skipped couple of dialysis and presented here with pulmonary congestion, shortness of breath, hypoxic on evaluation by the EMS with O2 saturation in the 80s for continued hemodialysis with ultrafiltration pulmonary congestion and possible bilateral pleural effusion necessitated by Renal consultation. PAST MEDICAL HISTORY: Significant for end-stage renal disease on hemodialysis, diabetes mellitus type 2, history of CVA, hepatitis C, hypertension, anxiety and depression. SOCIAL HISTORY: Denies alcohol, tobacco, or illicit drug use. REVIEW OF SYSTEMS: As documented in the body of history, otherwise unremarkable. MEDICATIONS: Reviewed and as documented on [employer]. FAMILY HISTORY: Not significantly related to present illness. PHYSICAL EXAMINATION: GENERAL: The patient was found to be in some respiratory distress, noted with following vital signs. VITAL SIGNS: Blood pressure 146/70, pulse 97, respiratory rate of 22, O2 saturations which is improved to the 90s. HEENT: Unremarkable. CARDIOVASCULAR SYSTEM: First and second heart sounds were heard. RESPIRATORY SYSTEM: Revealed some wheezes and crackles. DIGESTIVE SYSTEM: Revealed a benign abdomen with positive bowel sounds. EXTREMITIES: Showed mild peripheral edema. LYMPHATICS: No peripheral lymphadenopathy. SUMMARY: A 67-year-old gentleman with end-stage renal disease, who presented with hypoxic respiratory failure likely in the context of pulmonary congestion plus or minus chronic obstructive pulmonary disease exacerbation. Thank you for this consultation. We will follow with you. Job ID: [id number]
--- NOTE | 2018-06-18 21:47 | RAD ---
TWO VIEWS RIGHT FEMUR: 06/18/18 HISTORY: Right femoral pain. AP and lateral views right femur obtained. Images demonstrate a right hip unipolar arthroplasty. This appears to be a porous type arthroplasty with no evidence of definite loosening. No evidence of acute right femoral fracture seen. Extensive right lower extremity superficial femoral artery vascular calcifications seen. IMPRESSION: No evidence of acute right femoral fractures. POS: [facility]
[2018-06-19] MEDS: HYDROcodone/Acetaminophen 10/325 mg Tablet PO PRN ×5 (00:04→21:13)
--- NOTE | 2018-06-19 01:55 | CON ---
DATE OF CONSULTATION: 06/18/2018 HISTORY OF PRESENT ILLNESS: Kyle Barron is a 67-year-old white male, admitted with increased shortness of breath. I did see him in the past in August 2015. He had fallen, sustaining hip fracture. Four months prior to that, he had undergone adenosine Cardiolite testing which revealed no evidence of ischemia. He also been hospitalized with heart rates in the 40s and was on carvedilol 25 mg b.i.d. It was stopped and his bradycardia resolved. Also, in June 2016, he underwent Cardiolite testing which was normal. He currently is on hemodialysis. He missed dialysis one day due to nausea. He began to develop increased shortness of breath, but denied any chest discomfort. Apparently when EMS arrived, pulse oximetry was in the 80s on room air. In the emergency room, he was given DuoNeb, placed on oxygen. His pulse ox improved to 98%. Throughout all of this, he denied any chest discomfort. He has undergone dialysis with improvement in his shortness of breath. 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 History of previous CVA with some mild aphasia. OPERATIONS: ORIF of the right hip. MEDICATIONS: 1. Amlodipine 10 mg daily. 2. Aspirin 81 daily. 3. Atorvastatin 20 at bedtime. 4. Clonidine 0.1 mg b.i.d. 5. Colace 100 daily. 6. Cymbalta 20 mg b.i.d. 7. Apresoline 50 mg t.i.d. 8. Atarax 25 daily p.r.n. 9. Mirtazapine 15 mg at bedtime. 10. Protonix 40 daily. 11. Flomax 0.4 daily. 12. Renvela 2400 mg t.i.d. ALLERGIES: MORPHINE. SOCIAL HISTORY: Smoked in the past, but does not smoke now. He does not drink alcohol. FAMILY HISTORY: Negative for coronary artery disease. REVIEW OF SYSTEMS: A 12-point review of systems is unremarkable except as noted above. PHYSICAL EXAMINATION: VITAL SIGNS: Blood pressure 167/84, pulse of 87. HEENT: PERRL. NECK: Supple. CHEST: Clear. CARDIAC: S1 and S2 normal without any S3 or S4. There is a 2/6 systolic murmur loudest at the right second intercostal space. ABDOMEN: Normal bowel sounds without tenderness or organomegaly. EXTREMITIES: Revealed no clubbing, cyanosis, or edema. NEUROLOGICAL: Grossly intact except for mild aphasia with slurred speech. LABORATORY DATA: There is no EKG no the chart. Hemoglobin 10.9, hematocrit 33.2, white count 9500, platelets 185,000. PH 7.44, pCO2 of 42.4, PO2 of 83.9. Sodium 137 today, potassium 5.5, chloride 100, carbon dioxide 15, BUN 87, creatinine 8.74. CK-MB 11.6. Troponin I is up to 1.493. BNP 1879.6. Cholesterol 184, triglycerides 112, HDL 46, LDL 116. IMPRESSION: 1. End-stage renal disease, noncompliant with dialysis. 2. Probable non-ST elevation myocardial infarction. 3. Shortness of breath secondary to heart failure on top of noncompliance with dialysis. 4. Former smoker. 5. Hypertension. 6. Hyperlipidemia under poor control with LDL of 116 in a diabetic. 7. Diabetes. 8. History of hepatitis C. PLAN: Echocardiogram will be performed to assess left ventricular function. Consideration needs to be given to cardiac catheterization and this will be further discussed once particulars of his echo are done. Job ID: [id number] [facility]
[2018-06-19 06:05] LABS: #Lymphocytes 0.8 thou/uL (1.20-3.40); #Monocytes 0.8 thou/uL (0.11-0.59); #Neutrophils 6.4 thou/uL (1.40-6.50); %Basophils 0.1 % (0.0-1.0); %Eosinophils 0.2 % (0.0-10.0); %Lymphocytes 9.3 % (21.0-51.0); %Monocytes 10.5 % (0.0-10.0); %Neutrophils 79.9 % (42.0-75.0); Hemoglobin 11.5 g/dL (14.0-18.0); Mean Corpuscular Hemoglobin 30.2 pg (27.0-31.0); Mean Corpuscular Volume 94.4 fL (78.0-98.0); Mean Platelet Volume 7.6 fL (7.4-10.4); Platelet Count 227 thou/uL (130-400); RBC Distribution Width 13.1 % (11.5-14.5); Red Blood Cell (RBC) Count 3.82 mill/uL (4.70-6.10)
[2018-06-19] MEDS ORDERED: Nitroglycerin 0.4 MG TAB (25 Tab Bottle) SL PRN (06:19)
[2018-06-19 06:29] LABS: Anion Gap 21 mmol/L (10-20); BUN (Urea Nitrogen) 45 mg/dL (8.4-25.7); Calc. Creatinine Clearance 13 mL/min (70-130); Calcium 9.6 mg/dL (7.8-10.44); Carbon Dioxide 22 mmol/L (23-31); Chloride 97 mmol/L (98-107); Estimated GFR-MDRD 12; Glucose 173 mg/dL (80-115); Potassium 4.5 mmol/L (3.5-5.1); Sodium 135 mmol/L (136-145)
[2018-06-19] MEDS: Aspirin 81 mg Enteric Coated Tablet PO SCH (08:04)
[2018-06-19] MEDS: HumaLOG 300 UNITS/3 ML VIAL SC PRN (11:51)
[2018-06-19] MEDS ORDERED: hydrOXYzine 25 MG TAB PO PRN (13:43)
[2018-06-19] MEDS ORDERED: HYDROcodone/Acetaminophen 10/325 mg Tablet PO PRN (13:43)
[2018-06-19] MEDS ORDERED: busPIRone HCl 10 MG TAB PO SCH (14:00)
--- NOTE | 2018-06-19 14:08 | PRG ---
DATE OF SERVICE: 06/19/2018 SUBJECTIVE: The patient is seen and examined at the bedside. He is feeling significantly better. He was dialyzed yesterday. OBJECTIVE: VITAL SIGNS: Blood pressure is 161/68, pulse is 86, temperature is 97.7, respiratory rate is 18, O2 saturation is 92% on room air. HEENT: His head is atraumatic and normocephalic. Eyes are PERRLA. Sclerae are nonicteric. Oral mucosa is moist. NECK: Supple. LUNGS: Breath sounds diminished at both bases with bilateral crackles at the both bases. No wheezing. HEART: S1, S2 normal. No S3. No S4. No any murmur. ABDOMEN: Soft, nontender. EXTREMITIES: No clubbing, cyanosis, or edema. NEUROLOGICAL: He is alert and oriented x4. There is no any motor or sensory deficit present. Cranial nerves are intact. LABORATORY DATA: Labs showed white count of 8.0, hemoglobin 11.5, hematocrit 36.0, platelet count 227,000. Sodium of 135, potassium 4.5, chloride 97, CO2 of 22, BUN 45, creatinine 4.94. Glycemia is ranging from 172 to 248. Two troponin I levels 0.819 and 1.493. BNP from yesterday and 1879. Hepatitis B nonreactive antigen, nonreactive antibody and 6.63 hepatitis BS antibody index. IMPRESSION: 1. Fluid overload secondary to missed hemodialysis x2. 2. [id number] elevation myocardial infarction. 3. History of chronic obstructive pulmonary disease. 4. Hypertension. 5. History of cerebrovascular accident with residual slurred speech. 6. Diabetes mellitus type 2. 7. History of fractured right femur and status post open reduction and internal fixation. PLAN: The patient is going to have hemodialysis tomorrow. He was seen by Dr. Hoskins, who recommends to do echocardiogram, and he will have more recommendations after that. At this point, we are going to continue his aspirin 81 mg. I am awaiting for echocardiogram results. I will start his home medications and his sliding scale to control glycemia. Job ID: [id number]
[2018-06-19] MEDS: hydrALAZINE 25 MG TAB PO SCH ×2 (15:05→21:12)
[2018-06-19] MEDS: Sevelamer Carbonate 800 MG TAB PO SCH (16:18)
[2018-06-19] MEDS ORDERED: Communication Order-Pharmacy FS SCH (18:15)
--- NOTE | 2018-06-19 20:19 | PRG ---
DATE OF SERVICE: 06/19/2018 Job ID: [id number]
[2018-06-19] MEDS ORDERED: Atorvastatin Calcium 20 MG TAB PO SCH (21:00)
[2018-06-19] MEDS: Atorvastatin Calcium 40 MG TAB PO SCH (21:12)
[2018-06-19] MEDS: DULoxetine 30 MG CAP PO SCH (21:12)
[2018-06-19] MEDS: Mirtazapine 15 MG TAB PO SCH (21:12)
[2018-06-19] MEDS: busPIRone HCl 10 MG TAB PO SCH (21:13)
[2018-06-19] MEDS: Latanoprost 0.005% Ophth Soln 2.5 ml Bottle EA EYE SCH (21:13)
[2018-06-19] MEDS: cloNIDine 0.1 MG TAB PO SCH (21:14)
[2018-06-19] MEDS: Tamsulosin HCl 0.4 MG CAP PO SCH (21:14)
[2018-06-20] MEDS: HYDROcodone/Acetaminophen 10/325 mg Tablet PO PRN (03:57)
[2018-06-20] MEDS: busPIRone HCl 10 MG TAB PO SCH ×2 (05:11→20:01)
[2018-06-20] MEDS: cloNIDine 0.1 MG TAB PO SCH ×2 (05:11→20:00)
[2018-06-20] MEDS: Sevelamer Carbonate 800 MG TAB PO SCH ×3 (05:11→18:08)
[2018-06-20] MEDS: hydrALAZINE 25 MG TAB PO SCH ×3 (05:12→20:00)
[2018-06-20] MEDS: DULoxetine 30 MG CAP PO SCH ×2 (05:12→20:02)
[2018-06-20] MEDS: Aspirin 81 mg Enteric Coated Tablet PO SCH (05:12)
[2018-06-20] MEDS: Docusate 100 MG CAP PO SCH (05:13)
[2018-06-20] MEDS: Carvedilol 6.25 MG TAB PO SCH ×2 (05:13→18:06)
[2018-06-20 07:04] LABS: #Lymphocytes 0.6 thou/uL (1.20-3.40); #Monocytes 0.8 thou/uL (0.11-0.59); #Neutrophils 9.6 thou/uL (1.40-6.50); %Eosinophils 0.1 % (0.0-10.0); %Lymphocytes 5.4 % (21.0-51.0); %Monocytes 7.1 % (0.0-10.0); %Neutrophils 87.5 % (42.0-75.0); Hemoglobin 9.7 g/dL (14.0-18.0); Mean Corpuscular HGB CONC 32.4 g/dL (32.0-36.0); Mean Corpuscular Hemoglobin 30.5 pg (27.0-31.0); Mean Corpuscular Volume 94.1 fL (78.0-98.0); Mean Platelet Volume 7.8 fL (7.4-10.4); Platelet Count 181 thou/uL (130-400); RBC Distribution Width 12.8 % (11.5-14.5); Red Blood Cell (RBC) Count 3.18 mill/uL (4.70-6.10)
[2018-06-20 07:26] LABS: Anion Gap 20 mmol/L (10-20); BUN (Urea Nitrogen) 71 mg/dL (8.4-25.7); Calc. Creatinine Clearance 12 mL/min (70-130); Calcium 9.2 mg/dL (7.8-10.44); Carbon Dioxide 25 mmol/L (23-31); Chloride 95 mmol/L (98-107); Estimated GFR-MDRD 10; Glucose 143 mg/dL (80-115); Potassium 4.8 mmol/L (3.5-5.1); Sodium 135 mmol/L (136-145)
[2018-06-20 07:43] LABS: Actual Bicarbonate (HCO3a) 24.1 mEq/L (22-28); Base Excess (BEa) 0.4 mEq/L (-2.0 to +3.0); CO2 Tension 35.1 mmHg (35.0-45.0); Calcium, Ionized 1.14 mmol/L (1.12-1.30); Carboxyhemoglobin (COHb) 1.3 gm% (0.0-3.0); Hemoglobin (Hb) 9.5 g/dL (14.0-18.0); Potassium - ABG Lab 5.08 mmol/L (3.70-5.30); pH, Arterial 7.46 (7.35-7.45)
[2018-06-20 07:46] LABS: O2 Tension (PaO2) 55.9 mmHg (> 80.0)
[2018-06-20 07:47] LABS: ALV-art Gradient 156.905 (0-20); Puncture Site LBA
--- NOTE | 2018-06-20 08:30 | RAD ---
SINGLE VIEW CHEST: HISTORY: Shortness of breath. COMPARISON: 06/18/2018 FINDINGS: A single view of the chest shows a normal sized cardiomediastinal silhouette. There is worsening of the perihilar opacities. Increased interstitial markings are also seen. IMPRESSION: Worsening of the multifocal infiltrates. POS: [facility]
[2018-06-20] MEDS ORDERED: Amlodipine 5 MG TAB PO SCH (09:00)
[2018-06-20] MEDS ORDERED: Amlodipine 10 MG TAB PO SCH (09:00)
[2018-06-20] MEDS ORDERED: Furosemide 40 MG/4 ML VIAL SLOW IVP SCH (09:15)
[2018-06-20] MEDS ORDERED: Iopamidol 370 76% 100 ML VIAL ONE (10:12)
[2018-06-20] MEDS ORDERED: Iopamidol 370 76% 50 ML VIAL FS ONE (10:13)
[2018-06-20] MEDS: Lorazepam 2 MG/ML VIAL SLOW IVP PRN ×2 (10:27→20:02)
--- NOTE | 2018-06-20 11:18 | CON ---
DATE OF CONSULTATION: HISTORY OF PRESENT ILLNESS: Kyle Barron is a 67-year-old gentleman, encephalopathic, confused, who came to the hospital on 06/18, transferred to the MICU on 06/20/2018 with confusion, respiratory distress. X-ray shows pulmonary edema. Apparently, he has a history of end-stage renal failure, on dialysis. He skipped his dialysis several times. He presented with confusion, agitation. This morning on the MICU, he is on high flow with sats 95%. He is clearly agitated and confused. PAST MEDICAL HISTORY: End-stage renal failure, on dialysis; diabetes; CVA, hepatitis C, hypertension, anxiety, depression, COPD, coronary artery disease. PREVIOUS SURGERIES: Access. MEDICATIONS: Home medicines includes a long list. 1. Atarax 25. 2. Hydralazine 50 three times a day. 3. Catapres 0.1 twice a day. 4. Buspirone 10 b.i.d. 5. Flomax 0.4. 6. Protonix. 7. Mirtazapine 15 eye drops. 8. DuoNeb. 9. Aspirin. 10. Amlodipine 10. ALLERGIES: MORPHINE. REVIEW OF SYSTEMS: Otherwise unremarkable. PHYSICAL EXAMINATION: GENERAL: He is agitated, but in less distress. VITAL SIGNS: He is on high-flow with sats of 95%, temperature 99, blood pressure 120/58. CHEST: Extensive crackles. CARDIAC: Sinus tach. ABDOMEN: Soft. LABORATORY DATA: White count 11,000, H and H is 9 and 29, platelet count 181. PO2 is 55, pCO2 is . BUN and creatinine 71 and 5.7. IMPRESSION: 1. Respiratory failure secondary to fluid overload. 2. Coronary artery disease. 3. Renal failure. 4. Major anxiety. 5. Tobacco abuse. 6. Chronic obstructive pulmonary disease. 7. Encephalopathy. PLAN: He needs to be dialyzed in an emergency basis to improve his hypoxemia. Pulmonary will follow in the MICU. If his condition gets worse, may require intubation and vent support. Consultation note, 70 minutes, 50% direct patient care. Job ID: [id number]
--- NOTE | 2018-06-20 11:35 | PRG ---
DATE OF SERVICE: 06/20/2018 SUBJECTIVE: The patient is seen and examined, very short of breath, respiratory distress, noted with the following vital signs. OBJECTIVE: VITAL SIGNS: Blood pressure 120/61, heart rate of 79, O2 saturation 99% on 4 L. HEENT: Unremarkable. CARDIOVASCULAR: First and second heart sounds were heard. RESPIRATORY: Revealed diminished breath sounds. DIGESTIVE: Revealed a benign abdomen. Positive bowel sounds. EXTREMITIES: Showed mild some peripheral edema. IMPRESSION: 1. End-stage renal disease, on hemodialysis. 2. Hypervolemia. 3. Respiratory failure related to problem listed above. PLAN: 1. The patient is to start hemodialysis with ultrafiltration as tolerated by hemodynamics. 2. Further management will be dependent on the clinical course. Job ID: [id number]
--- NOTE | 2018-06-20 11:57 | PRG ---
DATE OF SERVICE: 06/20/2018 SUBJECTIVE: The patient is seen and examined at the bedside. He is getting agitated and confused. This could be the beginning of delirium. He was just restrained with soft wrist restraints. He is getting aggressive with nurses. OBJECTIVE: VITAL SIGNS: Blood pressure is 120/61, pulse is 79, respiratory rate is 14, O2 saturation is 99% and temperature is 98.7. HEENT: His pupils are responding to light properly. Sclerae nonicteric. LUNGS: Breath sounds diminished significantly at both bases with bilateral rales and crackles at both bases. HEART: S1-S2 normal. No S3, no S4. ABDOMEN: Soft, nontender. EXTREMITIES: No clubbing, cyanosis, or edema. NEUROLOGIC: He is alert and oriented x0. He does not know the name of the place where he is at. He does not know time and date. LABORATORY DATA: Labs showed white count of 11.0, hemoglobin 9.7, hematocrit 29.9, and platelet count is 181,000. His ABGs showed pH of 7.46, PO2 55.9, pCO2 35.1, base excess 0.4. Sodium of 135, potassium 4.8, chloride 95, CO2 25, BUN 71, creatinine 5.79. Glycemia is ranging from 87-248, calcium 9.2. Chest x-ray from this morning showed worsening bilateral infiltrates. It looks like he is fluid overloaded. Echocardiogram showed a severely depressed LVEF with estimated LVEF at 20-25%, moderately enlarged right ventricle cavity with severe mitral regurgitation and mild tricuspid regurgitation. IMPRESSION: 1. Cyt-WH-hyukwiz elevation myocardial infarction. 2. Fluid overload secondary to missed dialysis x2. 3. History of chronic obstructive pulmonary disease. 4. Hypertension. 5. Diabetes mellitus type 2. 6. History of cerebrovascular accident with residual slurred speech. 7. History of fractured right femur and status post open reduction internal fixation. PLAN: We are going to dialyze him emergently. Dr. Martin, his string studies director was called and he is ordering emergent hemodialysis. He was just seen by well tester/critical care MD, Dr. Munoz, who recommends dialysis and if his hypoxia persists, he will intubate him. Now the patient is showing some altered mental status, which could be the beginning of delirium tremens, I believe this is going to improve significantly after dialysis and based on echocardiogram, most likely fish hatchery man will do cardiac catheterization on him to look for some stenotic areas in his coronary arteries. Job ID: [id number]
[2018-06-20] MEDS ORDERED: Heparin 10,000 UNITS/1 ML VIAL ONE (14:42)
[2018-06-20] MEDS ORDERED: Midazolam HCl 2 mg/2 ml Vial ONE (15:15)
[2018-06-20] MEDS ORDERED: Fentanyl 100 MCG/2 ML VIAL ONE (15:16)
[2018-06-20] MEDS ORDERED: Protamine Sulfate 50 MG/5 ML VIAL ONE (15:41)
[2018-06-20] MEDS ORDERED: Nitroglycerin 0.4 MG TAB (25 Tab Bottle) SL PRN (16:04)
[2018-06-20] MEDS ORDERED: Acetaminophen/Codeine 30-300mg Tablet PO PRN ×2 (16:04)
[2018-06-20] MEDS ORDERED: Sodium Chloride 0.9% 200 ML IV PRN (16:04)
[2018-06-20] MEDS: Mirtazapine 15 MG TAB PO SCH (20:00)
[2018-06-20] MEDS: Tamsulosin HCl 0.4 MG CAP PO SCH (20:00)
[2018-06-20] MEDS: Atorvastatin Calcium 40 MG TAB PO SCH (20:00)
[2018-06-20] MEDS: Latanoprost 0.005% Ophth Soln 2.5 ml Bottle EA EYE SCH (22:33)
--- NOTE | 2018-06-21 00:19 | CON ---
DATE OF CONSULTATION: 06/20/2018 OTHER CONSULTING PHYSICIAN: Mario Lopes MD PRIMARY CARE: Jremaine Rivera MD CHIEF COMPLAINT: Shortness of breath. HISTORY OF PRESENT ILLNESS: The patient is a 67-year-old man, who skipped dialysis one or two days by his report due to feeling nauseated. He thus developed shortness of breath to the point that he summoned EMS early Wednesday morning and upon their arrival, his O2 saturations were found to be in the 80s on room air. With oxygen and inhalers that improved, but in the emergency room shortly after arrival, his O2 saturations were 96% on face mask oxygen, but only 90% on 3 L nasal cannula. The patient had mildly elevated troponin initially, but it did rise over the next several hours. His EKG had no ST elevation and the patient denied any chest pain or pressure. Cardiac catheterization today demonstrated severe coronary artery disease involving his LAD and PDA and more modest disease in the ramus vessel. Of note , he had markedly decreased LV function and markedly elevated LVEDP. PAST MEDICAL HISTORY: Significant for diabetes, hypertension, end-stage renal disease, hepatitis C, anxiety and depression and by report, previous stroke, some examiners elicited a history of some residual dysarthria. He described to me residual bilateral lower extremity weakness. He describes the stroke being related to an accidental overdose of insulin and benzodiazepines. MEDICATIONS: 1. Hydralazine 50 mg t.i.d. 2. Clonidine 0.1 mg p.o. b.i.d. 3. Norvasc 10 mg p.o. a day. 4. Baby aspirin a day. 5. Lipitor 20 mg at bedtime. 6. Buspirone 10 mg b.i.d. 7. Cymbalta 20 mg b.i.d. 8. Mirtazapine 15 mg at bedtime. 9. Atarax 25 mg p.r.n. 10. Flomax 0.4 mg at bedtime. 11. Protonix 40 mg a day. 12. Renvela 2400 mg t.i.d. 13. Colace 100 mg a day. 14. Vitamin D3 2000 units a day. 15. Latanoprost eyedrops one drop each eye at bedtime. 16. [place] 10_t.i.d. p.r.n. 17. DuoNeb q.i.d. p.r.n. 18. He has been started on a sliding scale insulin and Coreg 10 mg b.i.d. has been added to his regimen here. ALLERGIES: HE HAS AN ALLERGY TO MORPHINE, BUT IT IS NOT SPECIFIED WHAT THE REACTION IS. SOCIAL HISTORY: He quit smoking about 20 years ago. FAMILY HISTORY: The patient is vague, says that his mother in her 70s, but is not sure of the cause. He does not know the cause of his father's . REVIEW OF SYSTEMS: Negative for any current eye, speech, facial, or extremity symptoms consistent with TIAs. He says that at baseline he does not really have any shortness of breath, but he recently had some lower extremity edema and some orthopnea. He says that he normally walks with a walker. PHYSICAL EXAMINATION: GENERAL: He is a chronically ill-appearing, disheveled appearing man. VITAL SIGNS: Height is 6 feet tall, weighs 146 pounds. Heart rate is 70, blood pressure is 145/68, 4 L nasal cannula. Currently has an O2 saturation of 88% to 93%. T-max this hospitalization has been 99.5, currently it is 98.7. HEENT: He has no JVD up to the angle of his jaw. He has some faint rales. He has either a right carotid bruit or a bruit related to his fistula (with the fistula compressed in the upper arm, the bruit at the right carotid noticeably diminishes. He has a bruit audible in his external jugular on that side). HEART: He has a regular rate and rhythm without obvious murmur or gallop. ABDOMEN: Soft and nontender. EXTREMITIES: He has palpable femoral pulses without any bruits. He has palpable popliteal pulses. He has diminished, but palpable dorsalis pedis pulses. He has very thick nailbeds on his feet. He has visible saphenous vein. He has no obvious edema in his lower extremities. NEURO: The patient's mental status has had a fair amount of confusion or delirium during the course of the day, but he seems calm now. LABORATORY DATA: Laboratory exam initially showed a white count of 9.5, hemoglobin 10.9, hematocrit 33.2, platelets 185,000, and this morning those labs were similar. His blood sugars have mostly been in the upper 100s to mid 200s. His electrolytes were normal. Glucose initially was 111, BUN is 87, creatinine 8.74. LFTs were normal. Calcium 9.5, protein 7.2, albumin 3.9, triglycerides 112, cholesterol 184, LDL 116, HDL 46. His initial troponin about 8 in the morning, on Wednesday, the 2nd it was 0.243, at around 11 it was 0.819 and at around 2 it was 1.493. His chest x-ray shows marked pulmonary edema, perhaps there are bilateral infiltrates or even some fibrotic pattern and a followup chest x-ray showed a little difference. His EKG shows inverted T-waves in V5 and V6, poor R-wave progression in V1 through V4, essentially with Q-waves in V1, V2, and V3 as well in III and aVF. His echocardiogram shows global hypokinesis. His distal septum and lateral wall are almost akinetic with an EF estimated around 20% to 25%. On cardiac catheterization, he has a right dominant system with diffuse irregularity in the right coronary proper, small PDA with a diffuse irregularity, but one focal lesion in its midportion. The LAD has serial significant lesions in its midportion and then becomes small, diffusely irregular. There is a focal stenosis distally, but it is right at the apex. He has some small diagonals, the largest of which is diseased, but is still quite small. The circumflex proper is a tiny vessel. He has a fairly good-sized bifurcated ramus with 40% or 50% lesion in its origin. LVEF is around 20% with EDP of 41 with an LV pressure 137/20 and aortic pressure on pullback 142/60 with a mean of 91. Of note, dye can be seen hanging up in the trabeculae carneae on ventriculography and failing to clear completely. IMPRESSION AND RECOMMENDATIONS: The patient is certainly a very marginal candidate for revascularization with diffusely diseased target vessels that are rather small, markedly decreased LV function and multiple significant comorbidities. Certainly with his florid pulmonary edema on x-ray and the delirium that he is having now, this is not an appropriate time for revascularization. Anyway, there might be some utility in checking a viability study because certainly if he has large segments of his ventricle that are not viable that make it easier to say that there is little benefit to high risk revascularization. Job ID: [id number] [facility]
[2018-06-21] MEDS: HumaLOG 300 UNITS/3 ML VIAL SC PRN ×2 (05:57→21:42)
[2018-06-21] MEDS: Lorazepam 2 MG/ML VIAL SLOW IVP PRN ×2 (09:32→17:12)
[2018-06-21] MEDS: busPIRone HCl 10 MG TAB PO SCH ×2 (09:32→20:42)
[2018-06-21] MEDS: Aspirin 81 mg Enteric Coated Tablet PO SCH (09:32)
[2018-06-21] MEDS: Docusate 100 MG CAP PO SCH (09:33)
[2018-06-21] MEDS: Sevelamer Carbonate 800 MG TAB PO SCH ×3 (09:33→17:12)
[2018-06-21 10:48] LABS: #Lymphocytes 0.8 thou/uL (1.20-3.40); #Monocytes 0.4 thou/uL (0.11-0.59); #Neutrophils 5.2 thou/uL (1.40-6.50); %Basophils 0.1 % (0.0-1.0); %Eosinophils 0.5 % (0.0-10.0); %Lymphocytes 12.9 % (21.0-51.0); %Monocytes 6.7 % (0.0-10.0); %Neutrophils 79.8 % (42.0-75.0); Hemoglobin 9.1 g/dL (14.0-18.0); Mean Corpuscular Hemoglobin 31.1 pg (27.0-31.0); Mean Corpuscular Volume 94.3 fL (78.0-98.0); Mean Platelet Volume 7.6 fL (7.4-10.4); Platelet Count 157 thou/uL (130-400); RBC Distribution Width 12.8 % (11.5-14.5); Red Blood Cell (RBC) Count 2.91 mill/uL (4.70-6.10); White Blood Cell (WBC) Count 6.5 thou/uL (4.8-10.8)
[2018-06-21 11:16] LABS: Anion Gap 11 mmol/L (10-20); BUN (Urea Nitrogen) 24 mg/dL (8.4-25.7); Calc. Creatinine Clearance 27 mL/min (70-130); Calcium 8.5 mg/dL (7.8-10.44); Carbon Dioxide 30 mmol/L (23-31); Chloride 99 mmol/L (98-107); Estimated GFR-MDRD 25; Glucose 90 mg/dL (80-115); Potassium 3.1 mmol/L (3.5-5.1); Sodium 137 mmol/L (136-145)
--- NOTE | 2018-06-21 11:38 | PRG ---
DATE OF SERVICE: 06/21/2018 INTERVAL HISTORY: The patient is doing fine from respiratory standpoint. He has actually been weaned down to room air. He denies any current chest pain, fevers , or chills. He is not coughing up any sputum. At this point, he is crying suggesting that he preferred to go home. PHYSICAL EXAMINATION: VITAL SIGNS: T-max 100.5, pulse 74, blood pressure 121/53, respirations 24, saturation 100% on room air. GENERAL: The patient is awake and alert, in no apparent distress. LUNGS: Decent air entry with no prolonged expiratory phase, wheezing, rhonchi, or crackles. HEART: Normal rate, regular. ABDOMEN: Soft, nontender, and nondistended. Bowel sounds are positive. MUSCULOSKELETAL: No cyanosis or clubbing. No pitting in the bilateral lower extremities. NEUROLOGIC: Grossly nonfocal. LABORATORY DATA: WBC 11.0, hemoglobin 9.7, platelets 181,000 and roughly stable. Creatinine 5.79, BUN 71. Basic metabolic profile is otherwise unremarkable. Blood cultures x2 and influenza A and B are unremarkable. ASSESSMENT: 1. Acute hypoxic respiratory failure, resolved. 2. End-stage renal disease, noncompliant with dialysis. 3. Type 2 diabetes mellitus. 4. History of polysubstance drug abuse. DISCUSSION AND PLAN: The patient's volume overload event has resolved. He has a low-grade fever. If he has a fever greater than 101, we will proceed with panculture and consider empiric antibiotics. His event yesterday, however, was clearly associated with pulmonary edema event. Pulmonary will continue to follow for the time being, but he is stable for transition out of the hospital. Job ID: [id number] [facility]
--- NOTE | 2018-06-21 11:41 | PRG ---
DATE OF SERVICE: 06/21/2018 SUBJECTIVE: The patient is seen and examined, much improved, noted with the following vital signs. OBJECTIVE: VITAL SIGNS: Blood pressure of 120/54, pulse of 70, respiratory rate of 22, O2 saturations are 97%. HEENT: Unremarkable. CARDIOVASCULAR: First and second heart sounds are heard. RESPIRATORY: Clear to auscultation. DIGESTIVE: Revealed a benign abdomen. Positive bowel sounds. EXTREMITIES: No peripheral edema. SKIN: No new gross rash. LYMPHATICS: No peripheral lymphadenopathy. IMPRESSION: 1. End-stage renal disease, on hemodialysis. 2. Respiratory failure, much improved, status post emergent dialysis yesterday. 3. Multivessel coronary artery disease. PLAN: 1. The patient to be dialyzed today with ultrafiltration as tolerated by hemodynamics per patient's schedule of Wednesday, , and Wednesday. 2. Further management will be dependent on the clinical course. Job ID: [id number]
[2018-06-21] MEDS: HYDROcodone/Acetaminophen 10/325 mg Tablet PO PRN ×2 (12:53→20:42)
[2018-06-21] MEDS: Lisinopril 10 MG TAB PO SCH ×2 (12:55→20:42)
[2018-06-21] MEDS: hydrALAZINE 25 MG TAB PO SCH ×3 (12:55→20:41)
[2018-06-21] MEDS: cloNIDine 0.1 MG TAB PO SCH ×2 (12:55→20:42)
[2018-06-21] MEDS: Carvedilol 6.25 MG TAB PO SCH ×2 (12:55→17:11)
--- NOTE | 2018-06-21 13:22 | PRG ---
DATE OF SERVICE: 06/21/2018 SUBJECTIVE: The patient is seen and examined at bedside. He is getting dialysis as we speak. He is quite agitated on and off. He pulled out his IV this morning. We will learn yesterday from his that his mental condition is never a normal at his baseline. He is willing to stay in the hospital. OBJECTIVE: VITAL SIGNS: Blood pressure is 125/54, pulse is 70, respiratory rate 22, O2 saturation 97%, and his temperature is 99.2. HEENT: His head is atraumatic and normocephalic. Eyes are PERRLA. Sclerae are nonicteric. Oral mucosa is moist. NECK: Supple. LUNGS: Breath sounds diminished at both bases with few crackles bilaterally. HEART: S1 and S2 normal. No S3. No S4. Somewhat distant. ABDOMEN: Soft, nontender. EXTREMITIES: No clubbing, cyanosis, or edema. NEUROLOGICAL: He follows my commands. He does not know the date and time. He knows the place. LABORATORY DATA: Labs showed white count of 6.5, hemoglobin 9.1, hematocrit 29.5, and platelet count 157,000. Sodium of 137, potassium 3.1, chloride 99, CO2 of 30, BUN 24, and creatinine 2.56. The rest of chemistry within normal limits. Glycemia is ranging from 96 to 221. IMPRESSION: 1. Lpg-CR-bskxhbt elevation myocardial infarction, status post cardiac catheterization, which showed diffuse coronary artery disease. Left ventricular ejection fraction was estimated at 20% to 25%. 2. Cardiomyopathy with low left ventricular ejection fraction. 3. Fluid overload secondary to missed dialysis x2. 4. Pulmonary edema. 5. History of chronic obstructive pulmonary disease. 6. Hypertension. 7. Diabetes mellitus, type 2. 8. History of cerebrovascular accident with residual slurred speech. 9. History of fractured right hip and status post open reduction and internal fixation. DISCUSSION: The patient was seen by Cardiovascular Surgeon, who does not feel like he is good candidate for any revascularization at this point. We are going to continue his hemodialysis per Dr. Martin's recommendations. His mental condition significantly improved. Today, I will start him on some Risperdal for his agitation. Then, he had 2 blood cultures done, which are negative so far. His fever persists. We will start him on empiric broad spectrum antibiotic coverage. Job ID: [id number]
--- NOTE | 2018-06-21 15:29 | RAD ---
CHEST 1 VIEW: HISTORY: Fever. Pneumonia. COMPARISON: 06/23/2018. FINDINGS: Cardiac silhouette is magnified by projection. Bilateral perihilar infiltrates are slightly less den se than on the previous study, most notably in the right upper lobe and left lower lobe. Mediastinum is midline. No evidence of pneumothorax. IMPRESSION: Slight radiographic improvement in appearance of bilateral infiltrates. No new abnormalities demonst rated. POS: [facility]
[2018-06-21] MEDS: Mirtazapine 15 MG TAB PO SCH (20:42)
[2018-06-21] MEDS: Atorvastatin Calcium 40 MG TAB PO SCH (20:42)
[2018-06-21] MEDS: Tamsulosin HCl 0.4 MG CAP PO SCH (20:43)
[2018-06-21] MEDS: Latanoprost 0.005% Ophth Soln 2.5 ml Bottle EA EYE SCH (20:45)
[2018-06-22 05:02] LABS: #Basophils 0.1 thou/uL (0.0-0.2); #Eosinphils 0.1 thou/uL (0.0-0.7); #Lymphocytes 1.3 thou/uL (1.20-3.40); #Monocytes 0.6 thou/uL (0.11-0.59); #Neutrophils 4.5 thou/uL (1.40-6.50); %Basophils 1.1 % (0.0-1.0); %Eosinophils 1.9 % (0.0-10.0); %Lymphocytes 20.2 % (21.0-51.0); %Neutrophils 67.7 % (42.0-75.0); Hemoglobin 8.9 g/dL (14.0-18.0); Mean Corpuscular HGB CONC 32.8 g/dL (32.0-36.0); Mean Corpuscular Hemoglobin 31.8 pg (27.0-31.0); Mean Corpuscular Volume 96.9 fL (78.0-98.0); Mean Platelet Volume 7.8 fL (7.4-10.4); Platelet Count 146 thou/uL (130-400); RBC Distribution Width 12.7 % (11.5-14.5); White Blood Cell (WBC) Count 6.6 thou/uL (4.8-10.8)
[2018-06-22 05:18] LABS: Anion Gap 12 mmol/L (10-20); BUN (Urea Nitrogen) 26 mg/dL (8.4-25.7); Calc. Creatinine Clearance 22 mL/min (70-130); Calcium 8.5 mg/dL (7.8-10.44); Carbon Dioxide 32 mmol/L (23-31); Chloride 99 mmol/L (98-107); Estimated GFR-MDRD 20; Glucose 122 mg/dL (80-115); Potassium 3.7 mmol/L (3.5-5.1); Sodium 139 mmol/L (136-145)
[2018-06-22] MEDS: Sevelamer Carbonate 800 MG TAB PO SCH ×3 (10:52→18:11)
[2018-06-22] MEDS: Lisinopril 10 MG TAB PO SCH ×2 (10:52→20:15)
[2018-06-22] MEDS: cloNIDine 0.1 MG TAB PO SCH ×2 (10:53→20:16)
[2018-06-22] MEDS: busPIRone HCl 10 MG TAB PO SCH ×2 (10:53→20:15)
[2018-06-22] MEDS: Aspirin 81 mg Enteric Coated Tablet PO SCH (10:53)
[2018-06-22] MEDS: Docusate 100 MG CAP PO SCH (10:55)
[2018-06-22] MEDS: hydrALAZINE 25 MG TAB PO SCH ×3 (10:55→20:16)
[2018-06-22] MEDS: Carvedilol 6.25 MG TAB PO SCH ×2 (10:55→16:18)
[2018-06-22 14:02] VITALS: BMI 18.1
--- NOTE | 2018-06-22 15:20 | PRG ---
DATE OF SERVICE: 06/22/2018 SUBJECTIVE: The patient is seen and examined at the bedside. He just had cardiac catheterization done this morning. He complains about the back pain. He is supposed to be in bed in this position until 2:00 today. OBJECTIVE: VITAL SIGNS: Blood pressure is 141/62, pulse is 56, temperature is 97.7, respiratory rate is 16, and pulse oximetry is 98% on room air. HEENT: His head is atraumatic and normocephalic. Eyes are PERRLA. Sclerae are nonicteric. NECK: Supple. LUNGS: Diminished at both bases with few crackles bilaterally at both bases. HEART: S1 and S2, somewhat irregular. No S3. No S4. ABDOMEN: Soft, nontender. Bowel sounds are present. No organomegaly. EXTREMITIES: No clubbing, cyanosis, or edema. NEUROLOGIC: He follows my commands. He moves his four extremities. LABORATORY DATA: Labs showed white count of 6.6, hemoglobin 8.9, hematocrit 27.2, platelet count is 146,000. Sodium of 139, potassium 3.7, chloride 99, CO2 of 32, BUN 26, creatinine 3.11. Glycemia is ranging from 96 to 287. Microbiology, two blood cultures came back negative. IMPRESSION: 1. Bvz-LA-gycgdbs elevation myocardial infarction, status post cardiac catheterization, which showed diffuse coronary artery disease, LVEF estimated at 20%, not a candidate for any revascularization per cardiovascular surgeon. 2. Cardiomyopathy with low left ventricular ejection fraction. 3. Fluid overload secondary to missed dialysis x2. 4. Pulmonary edema. 5. History of chronic obstructive pulmonary disease. 6. Hypertension. 7. Diabetes mellitus. 8. History of cerebrovascular accident. 9. History of fractured right hip, status post open reduction and internal fixation. PLAN: Continue his dialysis. Continue his current regimen. He did not have any fever. He had a temperature of 99.2. We will continue his aspirin, Lipitor, BuSpar, carvedilol, clonidine, Cymbalta, hydralazine, lisinopril, mirtazapine, Renvela, and Flomax. Job ID: [id number]
--- NOTE | 2018-06-22 17:36 | PRG ---
DATE OF SERVICE: 06/22/2018 SUBJECTIVE: The patient is seen and examined. He seems to be doing much better and hemodynamically stable. OBJECTIVE: VITAL SIGNS: Showed afebrile, temperature 97.6, pulse 56, respiratory rate of 14, O2 saturation 98%, and blood pressure 147/63. HEENT: Unremarkable. CARDIOVASCULAR SYSTEM: First and second heart sounds were heard. RESPIRATORY SYSTEM: Clear to auscultation. DIGESTIVE SYSTEM: Revealed a benign abdomen with positive bowel sounds. EXTREMITIES: No peripheral edema. SKIN: No new gross rash. LYMPHATICS: No peripheral lymphadenopathy. IMPRESSION: 1. End-stage renal disease, on hemodialysis. 2. Non-ST elevation myocardial infarction, status post cardiac catheterization. 3. Diabetes mellitus. 4. Hypertension. PLAN: 1. The patient is to continue with hemodialysis as per his schedule. 2. Further management to be dependent on the clinical course. Job ID: [id number]
[2018-06-22] MEDS: Mirtazapine 15 MG TAB PO SCH (20:15)
[2018-06-22] MEDS: Atorvastatin Calcium 40 MG TAB PO SCH (20:15)
[2018-06-22] MEDS: Tamsulosin HCl 0.4 MG CAP PO SCH (20:16)
[2018-06-22] MEDS: Latanoprost 0.005% Ophth Soln 2.5 ml Bottle EA EYE SCH (20:18)
[2018-06-23 06:32] LABS: #Eosinphils 0.2 thou/uL (0.0-0.7); #Lymphocytes 1.5 thou/uL (1.20-3.40); #Monocytes 0.5 thou/uL (0.11-0.59); %Basophils 0.8 % (0.0-1.0); %Eosinophils 3.7 % (0.0-10.0); %Lymphocytes 23.6 % (21.0-51.0); %Monocytes 8.1 % (0.0-10.0); %Neutrophils 63.9 % (42.0-75.0); Hemoglobin 9.6 g/dL (14.0-18.0); Mean Corpuscular HGB CONC 32.9 g/dL (32.0-36.0); Mean Corpuscular Volume 97.5 fL (78.0-98.0); Mean Platelet Volume 7.8 fL (7.4-10.4); Platelet Count 165 thou/uL (130-400); RBC Distribution Width 12.8 % (11.5-14.5); Red Blood Cell (RBC) Count 2.99 mill/uL (4.70-6.10); White Blood Cell (WBC) Count 6.2 thou/uL (4.8-10.8)
[2018-06-23 06:56] LABS: Anion Gap 16 mmol/L (10-20); BUN (Urea Nitrogen) 40 mg/dL (8.4-25.7); Calc. Creatinine Clearance 14 mL/min (70-130); Calcium 8.3 mg/dL (7.8-10.44); Carbon Dioxide 27 mmol/L (23-31); Chloride 97 mmol/L (98-107); Estimated GFR-MDRD 14; Glucose 170 mg/dL (80-115); Potassium 3.7 mmol/L (3.5-5.1); Sodium 136 mmol/L (136-145)
[2018-06-23] MEDS: HYDROcodone/Acetaminophen 10/325 mg Tablet PO PRN ×3 (11:01→23:43)
[2018-06-23] MEDS: hydrALAZINE 25 MG TAB PO SCH ×3 (13:08→20:14)
[2018-06-23] MEDS: Sevelamer Carbonate 800 MG TAB PO SCH ×3 (13:08→18:07)
[2018-06-23] MEDS: Docusate 100 MG CAP PO SCH (13:08)
[2018-06-23] MEDS: Carvedilol 6.25 MG TAB PO SCH ×2 (13:09→16:45)
[2018-06-23] MEDS: Lisinopril 10 MG TAB PO SCH ×2 (13:09→20:15)
[2018-06-23] MEDS: Aspirin 81 mg Enteric Coated Tablet PO SCH (13:09)
[2018-06-23] MEDS: busPIRone HCl 10 MG TAB PO SCH ×2 (13:10→20:12)
[2018-06-23] MEDS: cloNIDine 0.1 MG TAB PO SCH ×2 (13:10→20:14)
--- NOTE | 2018-06-23 14:18 | PRG ---
DATE OF SERVICE: 06/23/2018 SERVICE: Pulmonary Medicine. INTERVAL HISTORY: The patient is doing fine from respiratory standpoint, breathing comfortably. He has been on room air for 2 days now. Otherwise, there has been no interval change to his condition. PHYSICAL EXAMINATION: VITAL SIGNS: Afebrile, pulse 58, blood pressure 118/58, respirations 16, and saturation 100% on room air. GENERAL: The patient is awake and alert, in no apparent distress. LUNGS: Excellent air entry with no prolonged expiratory phase or wheezing present. There are no rhonchi or crackles appreciated. HEART: Normal rate and regular. ABDOMEN: Soft, nontender, and nondistended. Bowel sounds are positive. MUSCULOSKELETAL: No cyanosis or clubbing. No pitting in the bilateral lower extremities. NEUROLOGIC: Grossly nonfocal. LABORATORY DATA: CBC is unremarkable/stable. Hemoglobin 9.6. Creatinine 4.39. Basic metabolic profile is otherwise unremarkable. Gram-positive rods are growing in 1 out of 2 blood culture. The other one is sterile. Influenza A and B were unremarkable previously. ASSESSMENT: 1. Acute hypoxic respiratory failure, resolved. 2. End-stage renal disease, noncompliant with dialysis. 3. Type 2 diabetes mellitus. 4. History of polysubstance drug abuse. 5. Abnormal blood culture, likely contaminant. DISCUSSION AND PLAN: At this point, the patient has no further requirements for inpatient Pulmonary Critical Care opinion. I will sign off. Please call with additional questions or concerns through time. Job ID: [id number]
--- NOTE | 2018-06-23 16:51 | CON ---
DATE OF CONSULTATION: 06/23/2018 REASON FOR CONSULTATION: Bacteremia and low-grade temperature elevation. HISTORY OF PRESENT ILLNESS: A 67-year-old patient, who has a history of hypertension; chronic hep C; type 2 diabetes; end-stage renal disease, on hemodialysis with an AV fistula in the right upper extremity, who missed dialysis and developed volume overload associated with dyspnea. He was brought to the emergency room with pulse ox in the 80s. Before that, he apparently had had some symptoms of upper respiratory tract infection. Here in the emergency room, he was given inhalers and O2 supplementation. On initial exam, blood pressure 140/70, pulse 97, respirations 22, and pulse oximetry 97%. Some pain in the right thigh, which is chronic. Lungs with diminished breath sounds and bilateral crackles and wheezing. The white cell count was 9.5 with a normal differential. Hemoglobin 10.9 and platelets 185. Sodium 137, creatinine 8.74, and BUN 87. Impression was fluid overload due to missed dialysis and COPD. He has been in the hospital now for 5 days and had one temp of 100.5, otherwise afebrile. Blood pressure 118/58, pulse 58, and O2 saturation 100%. Appears in no distress. He wants to go home. Denies any headaches. No cough. No more dyspnea. No abdominal pain. No diarrhea. PAST MEDICAL HISTORY: Prior CVA; history of chronic hep C, unknown treatment history; type 2 diabetes; hypertension; anxiety; and depression. PAST SURGICAL HISTORY: Negative. SOCIAL HISTORY: No alcoholic beverage use. Former smoker. FAMILY HISTORY: Noncontributory. MEDICATIONS: At this time receiving; 1. DuoNeb. 2. Ecotrin. 3. Lipitor. 4. BuSpar. 5. Coreg. 6. Catapres. 7. Cymbalta. 8. Glucagon. 9. Atarax. 10. Xalatan. 11. Zestril. 12. Ativan. 13. Remeron. 14. Protonix. 15. Renvela. 16. Tamsulosin. PHYSICAL EXAMINATION: VITAL SIGNS: Current . Other vital signs are not remarkable. GENERAL: He is awake, alert, a bit cantankerous, wanting to go home. SKIN: Multiple tattoos. Thera are no skin lesions. GENITOURINARY: No Knight catheter. LYMPH: No lymphadenopathy. HEENT: Ocular movements are conjugate. Oral cavity was not remarkable. NECK: Supple. No jugular vein distention. LUNGS: Symmetric air entry. No crackles or wheezing. CARDIOVASCULAR: S1 and S2, regular rate. No S3 or S4. ABDOMEN: Soft, not distended or tender. No ascites. No bladder distention. EXTREMITIES: He has a functional right AV fistula. No joint inflammatory activity. Moves extremities equally. LABORATORY DATA: Latest labs; white cell count is 6.2, hemoglobin 9.6 with a normal differential and platelet count. Sodium 136 and creatinine 4.39. One set of blood cultures with gram-positive rods. ASSESSMENT: Type 2 diabetes with end-stage renal disease, on hemodialysis; cardiomyopathy; pulmonary edema associated with missed dialysis; low-grade temp elevation, isolated event; and one set of blood cultures with gram-positive rods. DISCUSSION: The differential diagnosis includes transient bacteremia versus contamination of the sample. The more likely scenario is contamination of the sample and I believe that the organism identified will be either the bacillus species or Corynebacterium, I would not treat the finding and consider discharge planning. Job ID: [id number]
--- NOTE | 2018-06-23 16:53 | PRG ---
DATE OF SERVICE: 06/23/2018 SUBJECTIVE: The patient is seen and examined at the bedside. He feels good. He does not have much complaints to offer. No chest pain. No shortness of breath. OBJECTIVE: VITAL SIGNS: Blood pressure is 118/58, pulse is 59, temperature 98.4, respiratory rate is 16, and O2 saturation is 100% on room air. HEENT: His head is atraumatic and normocephalic. Pupils are responding to light properly. Sclerae are nonicteric. He is malnourished. LUNGS: Clear. HEART: S1 and S2. Somewhat distant S3. No S4. ABDOMEN: Soft, nontender. Bowel sounds are present. No organomegaly. EXTREMITIES: No clubbing, cyanosis, or edema. NEUROLOGIC: He follows my commands. He moves his all 4 extremities. LABORATORY DATA: Showed white count of 6.2, hemoglobin 9.6, hematocrit 29.1, platelet count is 165,000. Sodium of 136, potassium 3.7, chloride 97, CO2 of 27, BUN 40, creatinine 4.39. Glycemia is ranging from 141 to 198. Calcium is 8.3. IMPRESSION: 1. Nqm-FL-[id number] elevation myocardial infarction, status post cardiac catheterization, which showed diffuse coronary artery disease with left ventricular ejection fraction estimated at 20%, and the patient is supposed to have cardiac viability study done requested per cardiovascular surgeon. 2. Cardiomyopathy with low left ventricular ejection fraction. 3. Fluid overload secondary to missed dialysis x2. 4. Pulmonary edema. 5. History of chronic obstructive pulmonary disease. 6. Hypertension. 7. Diabetes mellitus. 8. History of cerebrovascular accident. 9. History of fractured right hip, status post open reduction and internal fixation. PLAN: Continue dialysis. Do cardiac viability study. Continue the rest of the regimen. Continue PT. Job ID: [id number]
[2018-06-23] MEDS: HumaLOG 300 UNITS/3 ML VIAL SC PRN (18:12)
--- NOTE | 2018-06-23 20:03 | PRG ---
DATE OF SERVICE: 06/23/2018 SUBJECTIVE: The patient is seen and examined. He seems to be doing much better, hemodynamically stable. OBJECTIVE: VITAL SIGNS: Blood pressure 118/58, pulse of 59, respiratory rate of 16, and O2 saturations of 100%. HEENT: Unremarkable. CARDIOVASCULAR: First and second heart sounds were heard. RESPIRATORY: Clear to auscultation. DIGESTIVE: Revealed a benign abdomen. EXTREMITIES: No peripheral edema. IMPRESSION: 1. End-stage renal disease, hemodialysis dependent. 2. Cqj-YX-nmlhlipqb myocardial infarction with diffuse coronary artery disease. 3. Systolic congestive heart failure. 4. Pulmonary congestion. PLAN: 1. The patient to continue with current regimen of dialysis of Wednesday, , Wednesday schedule. 2. Further management to be dependent on the clinical course. Job ID: [id number]
[2018-06-23] MEDS: Tamsulosin HCl 0.4 MG CAP PO SCH (20:12)
[2018-06-23] MEDS: Atorvastatin Calcium 40 MG TAB PO SCH (20:12)
[2018-06-23] MEDS: Mirtazapine 15 MG TAB PO SCH (20:13)
[2018-06-23] MEDS: Latanoprost 0.005% Ophth Soln 2.5 ml Bottle EA EYE SCH (20:13)
[2018-06-24] MEDS: Lorazepam 2 MG/ML VIAL SLOW IVP PRN (03:57)
[2018-06-24] MEDS: Sevelamer Carbonate 800 MG TAB PO SCH ×2 (08:44→12:36)
[2018-06-24] MEDS: Docusate 100 MG CAP PO SCH (08:44)
[2018-06-24] MEDS: Carvedilol 6.25 MG TAB PO SCH (08:44)
[2018-06-24] MEDS: Lisinopril 10 MG TAB PO SCH (08:44)
[2018-06-24] MEDS: Aspirin 81 mg Enteric Coated Tablet PO SCH (08:44)
[2018-06-24] MEDS: busPIRone HCl 10 MG TAB PO SCH (08:44)
[2018-06-24] MEDS: hydrALAZINE 25 MG TAB PO SCH (08:45)
[2018-06-24] MEDS: cloNIDine 0.1 MG TAB PO SCH (08:45)
[2018-06-24 11:22] VITALS: BP 128/60; TEMP 97.8
--- NOTE | 2018-06-24 12:15 | PRG ---
DATE OF SERVICE: 06/24/2018 SUBJECTIVE: The patient is seen and examined with no new complaint. OBJECTIVE: VITAL SIGNS: Noted with the following vital signs; afebrile, temperature 97.8, pulse 89, respiratory rate of 16, O2 saturations are 97%, and blood pressure 128/60. HEENT: Unremarkable. Moist oral mucosa. NECK: Supple. No conjunctival injection or icterus. CARDIOVASCULAR SYSTEM: First and second heart sounds were heard. RESPIRATORY SYSTEM: Clear to auscultation. DIGESTIVE SYSTEM: Revealed a benign abdomen. Positive bowel sounds. EXTREMITIES: No peripheral edema. SKIN: No new gross rash. LYMPHATICS: No peripheral lymphadenopathy. IMPRESSION: 1. End-stage renal disease, on hemodialysis. 2. Hypervolemia, improved, status post dialysis. 3. Diffuse coronary artery disease. PLAN: 1. The patient will be on hemodialysis per his schedule as there is no indication for emergent extra dialysis. 2. Counseling on the need to stay compliant with diet and water and salt intake. 3. Further management will be dependent on the clinical course. Job ID: [id number]
[2018-06-24] MEDS: HYDROcodone/Acetaminophen 10/325 mg Tablet PO PRN (12:40)
--- NOTE | 2018-06-24 14:57 | DIS ---
DATE OF ADMISSION: 06/19/2018 DATE OF DISCHARGE: 06/24/2018 FINAL DIAGNOSES: 1. Pjo-CJ-wdisabg elevation myocardial infarction, status post cardiac catheterization, which showed diffuse coronary artery disease with left ventricular ejection fraction estimated at 20%. 2. Cardiomyopathy with lower left ventricular ejection fraction. 3. Fluid overload secondary to missed dialysis x2. 4. Pulmonary edema. 5. History of chronic obstructive pulmonary disease. 6. Hypertension. 7. Diabetes mellitus. 8. History of cerebrovascular accident. 9. History of fractured right hip, status post open reduction and internal fixation. CONSULTANTS: 1. Dr. Martin for Nephrology service. 2. Dr. Hoskins for Cardiology service. 3. Dr. Munoz for Pulmonary service. 4. Dr. Renteria for Cardiovascular Surgery. 5. Dr. Mckeon for Pulmonary service. 6. Dr. Scott for Infectious Diseases. PROCEDURES: Cardiac catheterization. HOSPITAL COURSE: The patient is a 67-year-old male, who was admitted to the hospital with shortness of breath and congestion. Apparently, he is on hemodialysis 3 times a week and he missed two sessions of hemodialysis. He denied any fever or chills. He denied any chest pain. He was brought to the emergency room and was found to be in respiratory distress. LABORATORY DATA: Labs showed a white count of 9.5, hemoglobin 10.9, hematocrit 33.2, platelet count 185,000. His potassium was elevated at 5.5, chloride 100, CO2 of 15, BUN 87, creatinine 8.74. BNP was up to 1879. The rest of chemistry was within normal limits. CK-MB was up to 11.6 and troponin I was . EKG showed normal sinus rhythm with some flipped T-waves in V5 and V6. Chest x-ray showed increased interstitial markings and possible some pleural effusion. The patient was started on IV steroids and he underwent a dialysis after Dr. Martin, his customer contact sales associate, was consulted, and the patient was seen by a wood and hardware outfitter, Dr. Hoskins's, who recommended cardiac catheterization, subsequently, his echo was done and showed LVEF of 20% to 25%. with moderate enlargement of the right ventricle cavity and severe mitral regurgitation. Catheterization was done, which showed three-vessel coronary artery disease and severe LV dysfunction. He had another episode of pulmonary edema while in the house. He was moved emergently to [facility] and again emergently hemodialyzed. Also, he was seen by Dr. Renteria for cardiothoracic evaluation, whether he is a good candidate for revascularization of his locked coronary arteries. Cardiac viability study was ordered, but since we did not have the tracer, this test is still pending for Wednesday. He will have to come back to the Radiology Department for this test. He had some low-grade temperature and blood culture 1/2 grew a presumptive Corynebacterium species, which was felt to be contamination. His influenza type A and B test came back negative. He is doing significantly better. He would like to go home. His blood pressure is 128/60, pulse is 59, respiratory rate is 16, O2 saturation is 97 on room air, and temperature is 97.8. He was seen and examined before he was discharged. He has some weakness from this hospitalization, and he was seen by physical therapist and it was recommended to continue PT on outpatient basis, so he is going to stay on a diabetic diet. ACTIVITIES: As tolerated. MEDICATIONS: At the time of discharge; 1. Aspirin 81 mg once a day. 2. Atorvastatin 80 mg once a day. 3. BuSpar 10 mg twice a day. 4. Carvedilol 6.25 mg twice a day. 5. Vitamin D3, 2000 units once a day. 6. Clonidine 0.1 mg twice a day. 7. Cymbalta 20 mg twice a day. 8. Hydralazine 50 mg three times a day. 9. Latanoprost, which is Xalatan, 1 drop to each eye at bedtime. 10. Lisinopril 10 mg twice a day. 11. Mirtazapine 50 mg once a day. 12. Pantoprazole 40 mg once a day. 13. Sevelamer 2400 mg three times a day with meals. 14. Flomax 0.4 mg at bedtime. He is going to come back for his cardiac viability study on Wednesday. FOLLOWUP: He will follow up with his primary care physician in [address] Hoskins in 2 weeks. The patient was seen and examined before he was discharged and the discharge is more than 30 minutes. Job ID: [id number]
--- NOTE | 2018-06-25 22:53 | EKG ---
Test Reason : Blood Pressure : / mmHG Vent. Rate : 090 BPM Atrial Rate : 090 BPM P-R Int : 160 ms QRS Dur : 112 ms QT Int : 416 ms P-R-T Axes : 025 -12 100 degrees QTc Int : 508 ms Normal sinus rhythm T wave abnormality, consider lateral ischemia Prolonged QT Abnormal ECG Confirmed by NANCY JONES ([id number]), associate editor GIOVANNI PANG ([id number]) on 06/25/2018 10:52:49 PM Referred By: Confirmed By:NANCY JONES
== END 2018-06-24 15:13 | disposition home health service (06) | DRG 280 ==
LOC: ERS 07:37 → ERHOLD 10:36 → 2NO 20:36 → OBSVTOIN 06-19 22:01 → IMCU/EMU 06-20 06:27 → 2NO 06-21 23:58
PROVIDERS: ADMIT Internal Medicine; ATTEND Internal Medicine
PROC: 4A023N7 Measurement of Cardiac Sampling and Pressure, Left Heart, Percutaneous Approach (ICD-10-PCS; principal; 2018-06-19)
PROC: B2111ZZ Fluoroscopy of Multiple Coronary Arteries using Low Osmolar Contrast (ICD-10-PCS; 2018-06-19)
PROC: B2151ZZ Fluoroscopy of Left Heart using Low Osmolar Contrast (ICD-10-PCS; 2018-06-19)
PROC: 5A1D70Z Performance of Urinary Filtration, Intermittent, Less than 6 Hours Per Day (ICD-10-PCS; 2018-06-21)
DX: I21.4 Non-ST elevation (NSTEMI) myocardial infarction (principal); N18.6 End stage renal disease; J96.01 Acute respiratory failure with hypoxia; I42.9 Cardiomyopathy, unspecified; I12.0 Hypertensive chronic kidney disease with stage 5 chronic kidney disease or end stage renal disease; J44.1 Chronic obstructive pulmonary disease with (acute) exacerbation; G93.40 Encephalopathy, unspecified; E11.22 Type 2 diabetes mellitus with diabetic chronic kidney disease; Z99.2 Dependence on renal dialysis; Z91.15 Patient's noncompliance with renal dialysis; B19.20 Unspecified viral hepatitis C without hepatic coma; Z87.891 Personal history of nicotine dependence; F32.9 Major depressive disorder, single episode, unspecified; F41.9 Anxiety disorder, unspecified; I69.328 Other speech and language deficits following cerebral infarction; I25.10 Atherosclerotic heart disease of native coronary artery without angina pectoris; E86.1 Hypovolemia
CPT/HCPCS: 36415; 36416; 71045; 76942; 80048; 80053; 80061; 82553; 82805; 83880; 84484; 85025; 85347; 86706; 87040; 87340; 87804; 90935; 92928; 93005; 93306; 93455; 93458; 93798; 94640; 94660; 96372; 96374; 99152; C1769; C9600; G0257; J1644; J1650; J1940; J2060; J2250; J2720; J2930; J3010; J7620; Q9967

== ENCOUNTER 2018-06-26 20:58 | Observation (INO) | payer MEDICARE ==
[2018-06-26 21:53] LABS: #Basophils 0.1 thou/uL (0.0-0.2); #Eosinphils 0.1 thou/uL (0.0-0.7); #Monocytes 0.7 thou/uL (0.11-0.59); #Neutrophils 4.4 thou/uL (1.40-6.50); %Basophils 1.2 % (0.0-1.0); %Eosinophils 1.2 % (0.0-10.0); %Lymphocytes 27.5 % (21.0-51.0); %Monocytes 9.8 % (0.0-10.0); %Neutrophils 60.3 % (42.0-75.0); Hemoglobin 10.6 g/dL (14.0-18.0); Mean Corpuscular HGB CONC 31.6 g/dL (32.0-36.0); Mean Corpuscular Hemoglobin 30.8 pg (27.0-31.0); Mean Corpuscular Volume 97.4 fL (78.0-98.0); Mean Platelet Volume 7.2 fL (7.4-10.4); Platelet Count 207 thou/uL (130-400); RBC Distribution Width 12.9 % (11.5-14.5); Red Blood Cell (RBC) Count 3.45 mill/uL (4.70-6.10); White Blood Cell (WBC) Count 7.3 thou/uL (4.8-10.8)
[2018-06-26 22:08] LABS: ALT (SGPT) 11 U/L (8-55); AST (SGOT) 15 U/L (5-34); Albumin 3.3 g/dL (3.4-4.8); Alkaline Phosphatase 46 U/L (40-150); Anion Gap 15 mmol/L (10-20); BUN (Urea Nitrogen) 36 mg/dL (8.4-25.7); Bilirubin, Total 0.4 mg/dL (0.2-1.2); Calc. Creatinine Clearance 0 mL/min (70-130); Calcium 8.6 mg/dL (7.8-10.44); Carbon Dioxide 30 mmol/L (23-31); Chloride 95 mmol/L (98-107); Estimated GFR-MDRD 15; Globulin 3.1 g/dL (2.4-3.5); Glucose 182 mg/dL (80-115); Lipase 14 U/L (8-78); Potassium 4.6 mmol/L (3.5-5.1); Protein, Total 6.4 g/dL (5.8-8.1); Sodium 135 mmol/L (136-145)
--- NOTE | 2018-06-26 22:24 | RAD ---
CHEST ONE VIEW: Indication: Shortness of breath. Comparison: 06-21-18 FINDINGS: There is improvement of the bilateral pulmonary infiltrates. Mild residual interstitial and airspace opacity remains within both lower lobes. No definite pneumothorax is evident. No acute osseous abnorm ality noted. Heart size is normal. IMPRESSION: Improving bilateral pulmonary infiltrates. POS: [facility]
[2018-06-26 22:36] LABS: CKMB 2.1 ng/mL (0-6.6)
[2018-06-26] MEDS ORDERED: traMADol HCl 50 MG TAB ONE (23:34)
[2018-06-27 00:57] LABS: Critical Call Chem Troponin I RESULT DECREASING
[2018-06-27] MEDS ORDERED: diphenhydrAMINE 25 MG CAP ONE (01:16)
[2018-06-27] MEDS ORDERED: HYDROcodone/Acetaminophen 5/325 mg Tablet ONE (01:50)
[2018-06-27 04:09] LABS: Troponin I 1.567 ng/mL (< 0.028)
[2018-06-27] MEDS ORDERED: Lisinopril 10 MG TAB ONE (09:38)
[2018-06-27] MEDS ORDERED: hydrALAZINE 25 MG TAB ONE (09:38)
[2018-06-27] MEDS ORDERED: Aspirin Chewable 81 MG TAB ONE (09:38)
[2018-06-27 09:45] VITALS: BP 134/61
--- NOTE | 2018-06-27 10:01 | PDOC.PN ---
- Objective Resuscitation Status - Order Detail: 06/27/18 09:18 Resuscitation Status Routine Resuscitation Status: FULL: Full Resuscitation Vital Signs & Weight: Vital Signs (12 hours) Pulse BP 06/27/18 09:44 134/61 06/27/18 09:43 72 134/61 Result Diagrams: 06/26/18 21:37 06/26/18 21:37 Additional Labs: Accuchecks 06/27/18 07:28 POC Glucose 112 H Dx/Plan (1) Acute on chronic congestive heart failure Code(s): I50.9 - HEART FAILURE, UNSPECIFIED Status: Acute - Plan * .
[2018-06-27] MEDS ORDERED: Sevelamer Carbonate 800 MG TAB PO SCH (12:00)
--- NOTE | 2018-06-27 14:13 | SS ---
DATE OF ADMISSION: 06/26/2018 DATE OF DISCHARGE: 06/27/2018 PRIMARY CARE PHYSICIAN: LAVERN GAMEZ M.D PRESENTING COMPLAINT: Shortness of breath. HISTORY OF PRESENT ILLNESS: This is a very pleasant 67-year-old male gentleman with recent past medical history of NSTEMI as well as congestive heart failure, status post cardiac cath, who presents to the emergency room early this morning after calling 911 with complaints of an episode of shortness of breath. According to the patient, he was watching TV and then felt difficulty breathing, called 911 and he was brought outside by EMT personnel, at that point of time, felt better. No more complaints of shortness of breath or chest pain was noted at that point of time. The patient was brought into the emergency room at [facility], ER evaluation was done with initial diagnostic evaluations, there was residual elevated troponins from previous NSTEMI, but no complaints of chest pain nor an acute EKG changes were noted. The patient was hemodynamically optimized during this course. No other complaints of chest pain, shortness of breath, abdominal pain, fever, rigors, chills, nausea, vomiting, diaphoresis, blurring of vision, tingling, numbness, burning micturition, constipation, claudication, anxiety, depression, hematuria, hematochezia, cough, expectoration, syncope, and seizures have been noted. PAST MEDICAL HISTORY: 1. End-stage renal disease, on hemodialysis on Mondays, Wednesdays, and Fridays. The patient follows up with Dr. Martin. 2. Diabetes mellitus, type 2. 3. History of CVA with residual speech impairment. 4. Chronic hepatitis C. 5. Benign essential hypertension. 6. Anxiety disorder. 7. Depression. PAST SURGICAL HISTORY: Recent history of cardiac cath on June 24, 2018. SOCIAL HISTORY: The patient denies alcohol or recreational drug abuse. Quit smoking 20 years back. DISCHARGE MEDICATIONS: 1. Aspirin 81 mg daily. 2. Coreg 6.25 mg twice a day. 3. Lisinopril 10 mg twice daily. 4. Pantoprazole 40 mg daily. 5. Latanoprost 0.05% eye drops at bedtime. 6. Flomax 0.4 mg daily. 7. Clonidine 0.1 mg twice daily. 8. Cholecalciferol 2000 units daily. 9. Renvela 2400 mg 3 times daily with meals. 10. Hydralazine 50 mg 3 times daily. 11. Hydroxyzine 25 mg as needed. 12. Buspirone 10 mg twice daily. 13. Cymbalta 20 mg twice daily. 14. Atorvastatin 20 mg at bedtime. 15. Mirtazapine 15 mg at bedtime. 16. [place] 10/325 three times daily. 17. Docusate 100 mg daily. FAMILY HISTORY: History of coronary artery disease without any premature episodes. IMMUNIZATION HISTORY: Not accurate. REVIEW OF SYSTEMS: Except as documented, all systems reviewed are negative. PHYSICAL EXAMINATION: GENERAL: This is a 67-year-old male gentleman, lying in his hospital bed, not in acute distress. Alert, oriented. VITAL SIGNS: Has heart rate of 72 per minute, blood pressure of 134/61 mmHg, saturation of 100% on room air . HEENT: Atraumatic, normocephalic. No icterus. No pallor. NECK: Supple. No bruits. No lymphadenopathy. CVS: S1 and S2. No abnormal rhythms or murmurs. CHEST: Bilateral air entry present. No rhonchi. No wheeze noted. ABDOMEN: Soft, nontender. Bowel sounds are present. EXTREMITIES: No cyanosis. No clubbing. NEUROLOGIC: The patient is alert, oriented x3. No focal motor or sensory deficits noted. HEME: No ecchymosis or petechiae. PSYCH: Normal mood. DIAGNOSTIC: WBCs 7.3, hemoglobin 10.6, hematocrit 33.6, and platelets are 207. Sodium 135, potassium 4.6, chloride 95, carbon dioxide 30, anion gap is 15, BUN 36, and creatinine 4.11. AST 15, ALT 11. Troponins are 1.605, 1.560, 1.567. Lipase is 14. Chest x-ray, improving bilateral pulmonary infiltrates noted. ASSESSMENT: 1. Shortness of breath. No probably cause can be noted at this point of time as the patient is not fluid overloaded in fact his chest x-rays does show an improving pattern. 2. History of recent non-ST elevation myocardial infarction. The patient had a cardiac catheterization procedure evaluation and medical management was prescribed. 3. Congestive heart failure, systolic in nature. Ejection fraction of 20%. The patient on Coreg as well as ITEZL inhibitors. No volume overload. Pulmonary edema noted at this point of time. 4. End-stage renal disease, on hemodialysis on Mondays, Wednesdays, and Fridays. The patient at this point of time is following up with this primary nephrology physician for scheduled hemodialysis on Mondays, Wednesdays, and Fridays. 5. Diabetes mellitus, type 2. 6. Benign essential hypertension. 7. Hyperlipidemia. 8. Chronic hepatitis C. PLAN: I discussed in detail about the diagnosis, treatment, and followup with the patient. I have advised the patient about followup care with hemodialysis, followup care with primary cardiology as well as primary care physician in 1 week. No evidence of any acuity noted at this point of time. The patient hemodynamically stable, usually walks at home with his walker. Extensive education regarding his medical conditions and follow up care has been noted to the patient, in case of emergency to call 911. Job ID: [id number]
[2018-06-27] MEDS ORDERED: hydrALAZINE 25 MG TAB PO SCH (15:00)
[2018-06-27] MEDS ORDERED: Carvedilol 6.25 MG TAB PO SCH (17:00)
[2018-06-27] MEDS ORDERED: Atorvastatin Calcium 40 MG TAB PO SCH (21:00)
[2018-06-27] MEDS ORDERED: Tamsulosin HCl 0.4 MG CAP PO SCH (21:00)
[2018-06-27] MEDS ORDERED: Lisinopril 10 MG TAB PO SCH (21:00)
[2018-06-28] MEDS ORDERED: Docusate 100 MG CAP PO SCH (09:00)
[2018-06-28] MEDS ORDERED: Aspirin 81 mg Enteric Coated Tablet PO SCH (09:00)
--- NOTE | 2018-07-02 11:57 | EKG ---
Test Reason : Blood Pressure : / mmHG Vent. Rate : 070 BPM Atrial Rate : 070 BPM P-R Int : 162 ms QRS Dur : 114 ms QT Int : 432 ms P-R-T Axes : 029 -23 112 degrees QTc Int : 466 ms Normal sinus rhythm Incomplete left bundle branch block T wave abnormality, consider lateral ischemia Prolonged QT Abnormal ECG Confirmed by SALVATORE MEDINA DO ([id number]), news videotape editor JESUS BRENNAN ([id number]) on 07/02/2018 11:57:04 AM Referred By: Confirmed By:SALVATORE MEDINA DO
== END 2018-06-27 10:13 | disposition home or self-care (01) ==
LOC: ERS 20:58 → ERHOLD 23:24
PROVIDERS: ADMIT Internal Medicine; ATTEND Internal Medicine
DX: R06.02 Shortness of breath (principal); I13.2 Hypertensive heart and chronic kidney disease with heart failure and with stage 5 chronic kidney disease, or end stage renal disease; E11.22 Type 2 diabetes mellitus with diabetic chronic kidney disease; N18.6 End stage renal disease; I50.20 Unspecified systolic (congestive) heart failure; I25.2 Old myocardial infarction; E78.5 Hyperlipidemia, unspecified; B18.2 Chronic viral hepatitis C; F41.9 Anxiety disorder, unspecified; F32.9 Major depressive disorder, single episode, unspecified; Z99.2 Dependence on renal dialysis; Z79.82 Long term (current) use of aspirin; Z79.899 Other long term (current) drug therapy; Z87.891 Personal history of nicotine dependence
CPT/HCPCS: 71045; 80053; 82553; 82962; 83690; 83880; 84484 ×3; 85025; 93005; 99285; G0378; 36415; 36416; Q0163

== ENCOUNTER 2018-06-27 11:11 | Outpatient (CLI) | payer MEDICARE ==
--- NOTE | 2018-06-28 14:42 | NM ---
NUCLEAR MEDICINE MYOCARDIAL THALLIUM SCAN: HISTORY: Severe coronary artery disease. RADIOPHARMACEUTICAL: 3.6 mCi thallium 201 chloride injected intravenously. FINDINGS: Comparison is made with the 15 minute delayed image and the 24 hour delayed image following the intra venous administration of the radiopharmaceutical. There is a persistent large defect involving the inferior and apical sung, and a small defect in the distal anteroseptal wall. In a small portion of the anteroseptal wall, there is mild redistribution with better uptake on the initial images compared to the 24 hour delayed images. IMPRESSION: 1. Scarring and absence of viability in a large portion of the inferior wall, apex, and a small port ion of the distal anteroseptal wall. 2. Redistribution in a small portion of the anteroseptal wall suspicious for an ischemic process. POS: OFF
== END 2018-06-27 11:12 | disposition home or self-care (01) ==
LOC: NM 11:11
PROVIDERS: ATTEND Internal Medicine Cardiovascular Disease
DX: I25.10 Atherosclerotic heart disease of native coronary artery without angina pectoris (principal); I25.2 Old myocardial infarction
CPT/HCPCS: 78466; A9505

== ENCOUNTER 2018-07-13 08:42 | Observation (INO) | payer MEDICARE ==
[2018-07-13 09:12] LABS: #Lymphocytes 0.7 thou/uL (1.20-3.40); #Monocytes 0.4 thou/uL (0.11-0.59); #Neutrophils 3.8 thou/uL (1.40-6.50); %Basophils 0.5 % (0.0-1.0); %Eosinophils 0.7 % (0.0-10.0); %Lymphocytes 13.9 % (21.0-51.0); %Monocytes 8.1 % (0.0-10.0); %Neutrophils 76.7 % (42.0-75.0); Hemoglobin 11.9 g/dL (14.0-18.0); Mean Corpuscular Hemoglobin 31.4 pg (27.0-31.0); Mean Corpuscular Volume 97.9 fL (78.0-98.0); Mean Platelet Volume 7.2 fL (7.4-10.4); Platelet Count 167 thou/uL (130-400); RBC Distribution Width 13.8 % (11.5-14.5); Red Blood Cell (RBC) Count 3.78 mill/uL (4.70-6.10)
[2018-07-13 09:34] LABS: ALT (SGPT) 13 U/L (8-55); AST (SGOT) 17 U/L (5-34); Albumin 3.1 g/dL (3.4-4.8); Alkaline Phosphatase 44 U/L (40-150); Anion Gap 17 mmol/L (10-20); BUN (Urea Nitrogen) 57 mg/dL (8.4-25.7); Bilirubin, Total 0.6 mg/dL (0.2-1.2); Calc. Creatinine Clearance 0 mL/min (70-130); Calcium 8.5 mg/dL (7.8-10.44); Carbon Dioxide 24 mmol/L (23-31); Chloride 97 mmol/L (98-107); Estimated GFR-MDRD 9; Globulin 2.9 g/dL (2.4-3.5); Glucose 83 mg/dL (80-115); Lipase 13 U/L (8-78); Potassium 5.1 mmol/L (3.5-5.1); Sodium 133 mmol/L (136-145)
[2018-07-13 10:53] LABS: CKMB 2.6 ng/mL (0-6.6)
[2018-07-13] MEDS ORDERED: Ketorolac Tromethamine 30 MG/ML VIAL ONE (12:44)
[2018-07-13] MEDS ORDERED: Ondansetron PF 4 MG/2 ML Vial ONE (12:44)
--- NOTE | 2018-07-13 15:01 | HP ---
HISTORY OF PRESENT ILLNESS: The patient goes to [facility]. The patient was referred to [facility] for elevated troponin, nausea, vomiting, and diarrhea. I walked in the room, the patient was eating a full meal. I asked him why he came to the ER, he said his sent him. I asked him when he had his last episode of nausea and emesis, he said yesterday at 8:00 p.m. I asked him when his last episode of diarrhea was, he said sometimes yesterday. He denies chest pain, shortness of breath, fevers, sweats, or chills. PAST MEDICAL HISTORY: Extensive; end-stage renal disease, on hemodialysis, last hemodialysis yesterday. Hepatitis C, hypertension, anxiety, depression, and diabetes mellitus. PAST SURGICAL HISTORY: None. SOCIAL HISTORY: No alcohol or tobacco. Full code status. , next of kin. ALLERGIES: MORPHINE. MEDICATIONS: 1. Remeron 15 mg a day. 2. Hydralazine 50 mg three times a day. 3. Lipitor 20 mg a day. 4. Aspirin 81 mg a day. 5. Protonix 40 mg a day. 6. Flomax 0.4 mg a day. 7. BuSpar 10 mg twice a day. 8. Coreg 6.25 mg twice a day. 9. Clonidine 0.1 mg twice a day. 10. Cymbalta 20 mg twice a day. 11. Lisinopril 10 mg twice a day. 12. Sevelamer 2400 mg three times a day. FAMILY HISTORY: Diabetes, hypertension in multiple members. REVIEW OF SYSTEMS: HEAD: No headaches, dizziness, fainting, fever, or chills. EYES: No double vision, blurred vision, or flashing light. EARS, NOSE, AND THROAT: No ear pain or drainage. No nasal bleeding. No trouble swallowing. CARDIAC: No chest pain, orthopnea, or paroxysmal nocturnal dyspnea. RESPIRATION: No cough, wheezing, or asthma. GASTROINTESTINAL: Last emesis 8:00 p.m. yesterday. Eating. No diarrhea since yesterday. GENITOURINARY: Scant urine. No blood. MUSCULOSKELETAL: No pain or swelling in his legs. NEUROLOGIC: History of a stroke. No residual. PSYCHIATRIC: Anxiety, depression. No medicines. SKIN: Easy bruising. HEME/LYMPH: No tender or swollen lymph nodes in the axilla, inguinal, or cervical area. PHYSICAL EXAMINATION: VITAL SIGNS: Blood pressure 160/79, pulse 74, respirations 18, and temperature 97.5. HEENT: Eyes, pupils are equal, round, and reactive. Extraocular movements are intact. Sclerae white. Tympanic membranes clear. Nose is clear. Oral mucous membranes are wet. NECK: Supple without jugular venous distention, adenopathy, or thyromegaly. CHEST: Clear to auscultation and percussion. HEART: Regular rate and rhythm. First and second heart sounds are clear. There are no appreciated murmurs or gallops. ABDOMEN: Soft. Bowel sounds are normal. There is no hepatosplenomegaly. No mass. No rebound. EXTREMITIES: Reveal no cyanosis, clubbing, or edema. PULSES: Carotid, radial, femoral, and dorsalis pedis pulses are palpable. Grossly symmetric. SKIN: Warm and dry without bruises or rash. HEME/LYMPH: No tender or swollen lymph nodes in the axilla, inguinal, or cervical area. NEUROLOGIC: Cranial nerves 2 through 12 are intact. Deep tendon reflexes grossly symmetric. Moves all extremities. IMAGING DATA: EKG, regular sinus rhythm. Minimal T-wave changes from previous. LABORATORY DATA: CBC; white count 5.0, hemoglobin 11.9, platelet count 167,000. Comp metabolic profile; potassium 5.1, CO2 of 24, BUN 57, creatinine 6.13. Troponin 0.052. I have reviewed his old record. His troponins are consistently this higher. He gives me no history of chest pain. No orthopnea. No shortness of breath. His nausea and vomiting are resolved. I attempted to discuss this with emergency room physician and discharge him. The emergency room physician was resistant to that, so I have written admitting orders and discharging orders on discharging him home. No consultations. No procedures. To keep his hemodialysis appointment tomorrow. Job ID: [id number]
[2018-07-13 15:11] LABS: Troponin I 0.049 ng/mL (< 0.028)
--- NOTE | 2018-07-16 21:47 | EKG ---
Test Reason : Blood Pressure : / mmHG Vent. Rate : 073 BPM Atrial Rate : 073 BPM P-R Int : 162 ms QRS Dur : 108 ms QT Int : 448 ms P-R-T Axes : 034 -23 089 degrees QTc Int : 493 ms Normal sinus rhythm Possible Anterior infarct , age undetermined Abnormal ECG Confirmed by ANTONIO PERLA ([id number]), design editor GIOVANNI PANG ([id number]) on 07/16/2018 9:46:30 PM Referred By: Confirmed By:ANTONIO PERLA
== END 2018-07-13 14:26 | disposition home or self-care (01) ==
LOC: ERS 08:42 → ERHOLD 13:12
PROVIDERS: ADMIT Internal Medicine; ATTEND Internal Medicine
DX: R11.2 Nausea with vomiting, unspecified (principal); R19.7 Diarrhea, unspecified; I12.0 Hypertensive chronic kidney disease with stage 5 chronic kidney disease or end stage renal disease; E11.22 Type 2 diabetes mellitus with diabetic chronic kidney disease; N18.6 End stage renal disease; F41.9 Anxiety disorder, unspecified; F32.9 Major depressive disorder, single episode, unspecified; F12.10 Cannabis abuse, uncomplicated; Z87.891 Personal history of nicotine dependence; Z79.82 Long term (current) use of aspirin; Z79.899 Other long term (current) drug therapy; Z88.5 Allergy status to narcotic agent; Z99.2 Dependence on renal dialysis
CPT/HCPCS: 80053; 82553; 83690; 84484 ×2; 85025; 93005; 96372; 96374; 96375; 99291; G0378; 36415; J0500; J1885; J2405

== ENCOUNTER 2018-08-06 09:42 | Observation (INO) | payer MEDICARE, OTHER ==
[2018-08-06 10:33] LABS: #Basophils 0.1 thou/uL (0.0-0.2); #Eosinphils 0.1 thou/uL (0.0-0.7); #Lymphocytes 1.7 thou/uL (1.20-3.40); #Monocytes 0.5 thou/uL (0.11-0.59); %Basophils 1.1 % (0.0-1.0); %Eosinophils 1.4 % (0.0-10.0); %Lymphocytes 31.9 % (21.0-51.0); %Monocytes 9.1 % (0.0-10.0); %Neutrophils 56.6 % (42.0-75.0); Hemoglobin 10.9 g/dL (14.0-18.0); Mean Corpuscular HGB CONC 31.9 g/dL (32.0-36.0); Mean Corpuscular Hemoglobin 31.5 pg (27.0-31.0); Mean Platelet Volume 7.4 fL (7.4-10.4); Platelet Count 132 thou/uL (130-400); RBC Distribution Width 13.6 % (11.5-14.5); Red Blood Cell (RBC) Count 3.46 mill/uL (4.70-6.10); White Blood Cell (WBC) Count 5.2 thou/uL (4.8-10.8)
[2018-08-06 10:55] LABS: ALT (SGPT) 23 U/L (8-55); AST (SGOT) 22 U/L (5-34); Albumin 3.5 g/dL (3.4-4.8); Alkaline Phosphatase 46 U/L (40-150); Anion Gap 20 mmol/L (10-20); BUN (Urea Nitrogen) 63 mg/dL (8.4-25.7); Bilirubin, Total 0.5 mg/dL (0.2-1.2); Calc. Creatinine Clearance 0 mL/min (70-130); Calcium 8.8 mg/dL (7.8-10.44); Carbon Dioxide 23 mmol/L (23-31); Chloride 103 mmol/L (98-107); Estimated GFR-MDRD 10; Globulin 2.9 g/dL (2.4-3.5); Glucose 104 mg/dL (80-115); Protein, Total 6.4 g/dL (5.8-8.1); Sodium 141 mmol/L (136-145)
[2018-08-06] MEDS ORDERED: Ondansetron PF 4 MG/2 ML Vial ONE (11:29)
[2018-08-06 11:33] LABS: CKMB 3.1 ng/mL (0-6.6)
--- NOTE | 2018-08-06 12:11 | CT ---
EXAM: CT Abdomen Pelvis WO Con PROVIDED CLINICAL HISTORY: Abdominal pain and diarrhea COMPARISON: 06/12/2016 FINDINGS: There are small bilateral pleural effusions and bibasilar groundglass densities probably related to a telectasis. A small pericardial effusion is present. Vascular calcifications are seen in the limited visualized coronary arteries as well as involving the abdominal aorta and iliac arteries with mesh calcifications in the pelvis. Lack of intravenous contrast limits sensitivity for evaluation of the parenchymal organs. However, th e liver, spleen, pancreas, bilateral adrenal glands, and kidneys demonstrate grossly normal nonenhanced CT appearance. A punctate calcification is seen in the midportion left kidney as well as in the right kidney likely due to vascular calcifications as opposed to renal calculi. There is no hydronephrosis. Right total hip prosthesis with postsurgical changes of the left hip result in significant streak art ifact in the pelvis limiting evaluation of the lower pelvis including urinary bladder. Urinary bladder is distended, but portions of the urinary bladder demonstrate wall thickening. This is nonspe cific and was not present on the prior study; There is subcutaneous edema and mild mesenteric edema. These findings are suggestive of mild anasarca . Right convex scoliosis lumbar spine is again seen centered at the L2-3 level. Again noted is the comp ression fracture of the L2 vertebral body similar to prior exam. Multilevel degenerative changes are seen in the spine. IMPRESSION: 1. Small bilateral pleural effusions and atelectasis. 2. Findings suggestive of mild anasarca with small amount of intraperitoneal free fluid in the pelvis .. 3. Urinary bladder is mildly distended, and sung of the urinary bladder are mildly thickened. This c ould be related to cystitis in the correct clinical scenario. 4. Small pericardial effusion. 5. Limited evaluation of the abdominal structures secondary to lack of intra-abdominal fat which limi ts evaluation of bowel. 6. Vascular calcifications. 7. Stable fracture involving the L2 vertebral body with right convex scoliosis lumbar spine.
[2018-08-06] MEDS ORDERED: Aspirin 325 MG TAB ONE (12:22)
[2018-08-06] MEDS ORDERED: Aspirin Chewable 81 MG TAB ONE (12:23)
[2018-08-06] MEDS ORDERED: Acetaminophen 325 MG TAB ONE (14:31)
[2018-08-06 16:29] LABS: Troponin I 0.137 ng/mL (< 0.028)
[2018-08-06] MEDS ORDERED: HYDROcodone/Acetaminophen 10/325 mg Tablet PO PRN ×2 (17:21→18:13)
[2018-08-06] MEDS ORDERED: HumaLOG 300 UNITS/3 ML VIAL SC PRN (18:10)
[2018-08-06] MEDS ORDERED: Dextrose 50% Abboject 50 ML SYRINGE SLOW IVP PRN (18:10)
[2018-08-06] MEDS ORDERED: Dextrose 5% in Water 1,000 ML IV PRN (18:10)
[2018-08-06 18:32] LABS: Troponin I 0.159 ng/mL (< 0.028)
[2018-08-06] MEDS ORDERED: hydrALAZINE 25 MG TAB PO SCH (21:00)
[2018-08-06] MEDS ORDERED: Atorvastatin Calcium 20 MG TAB PO SCH (21:00)
[2018-08-06] MEDS: Tamsulosin HCl 0.4 MG CAP PO SCH (21:16)
[2018-08-06] MEDS: Mirtazapine 15 MG TAB PO SCH (21:16)
[2018-08-06] MEDS: busPIRone HCl 10 MG TAB PO SCH (21:16)
[2018-08-06] MEDS: Heparin 5,000 UNITS/ML VIAL SC SCH (21:18)
[2018-08-06] MEDS: Nitroglycerin 0.4 MG TAB (25 Tab Bottle) PO PRN ×3 (21:19→22:07)
--- NOTE | 2018-08-06 22:11 | RAD ---
PA AND LATERAL CHEST X-RAY: 08/06/18 HISTORY: Chest pain. COMPARISON: 06/16/17. FINDINGS: Multiple surveillance monitor leads overlie the chest. The cardiac silhouette and pulmonary vasculature a re within normal limits. There is slight blunting of the left lateral costophrenic angle which may be related to tiny left pleural effusion and/or pleural thickening. Lungs otherwise appear clear. There has been no other interval change compared to the prior study including postsurgical changes right h umerus. IMPRESSION: Blunting left lateral costophrenic angle which may be related to tiny left pleural effusion versus pl eural thickening. POS: PAVAN
[2018-08-06] MEDS: Nitroglycerin 2% Ointment 1 INCH/1 GM Packet TOP SCH (22:25)
[2018-08-06] MEDS: HYDROcodone/Acetaminophen 10/325 mg Tablet PO PRN (22:28)
--- NOTE | 2018-08-06 23:53 | CON ---
DATE OF CONSULTATION: CONSULTING PHYSICIAN: Mario Lopes MD REASON FOR CONSULTATION: Need for maintenance hemodialysis. IMPRESSION: End-stage renal disease on hemodialysis Wednesday, , and Wednesday schedule. PLAN: 1. The patient to be dialyzed in accordance with the schedule with ultrafiltration as tolerated by hemodynamics. 2. Further management will be dependent on the clinical course. HISTORY OF PRESENT ILLNESS: A 67-year-old gentleman with end-stage renal disease, on hemodialysis, who presented here with chest discomfort. The patient is due for dialysis today but could not get dialysis today, therefore, the need for renal consultation for renal replacement therapy. PAST MEDICAL HISTORY: Significant for end-stage renal disease, hemodialysis dependent; hepatitis C; hypertension; anxiety; depression; and diabetes mellitus. SOCIAL HISTORY: No alcohol. No tobacco. No illicit drug use. ALLERGIES: TO MORPHINE. MEDICATIONS: Reviewed and as documented on vivio. FAMILY HISTORY: Significant for diabetes and hypertension. REVIEW OF SYSTEMS: As documented in the body of the history. All the other systems were reviewed and found not to be significantly related to presenting illness. PHYSICAL EXAMINATION: GENERAL: The patient was found not to be in any obvious distress. Hemodynamically stable. VITAL SIGNS: Noted with the following vital signs; afebrile, temperature 98.4, pulse 74, respiratory rate of 16, O2 saturation 100% with blood pressure 178/82. HEENT: Unremarkable. Moist oral mucosa. NECK: Supple. No conjunctival injection or icterus. CARDIOVASCULAR SYSTEM: First and second heart sounds were heard. RESPIRATORY SYSTEM: Clear to auscultation. DIGESTIVE SYSTEM: Revealed benign abdomen with positive bowel sounds. EXTREMITIES: No peripheral edema. SKIN: No new gross rash. LYMPHATICS: No peripheral lymphadenopathy. In summary, a 67-year-old gentleman with end-stage renal disease, hemodialysis dependent, who presented here with chest discomfort. Thank you for this consultation. We will follow with you. Job ID: [id number]
[2018-08-07] MEDS: HYDROcodone/Acetaminophen 10/325 mg Tablet PO PRN ×2 (02:59→09:32)
[2018-08-07] MEDS ORDERED: cloNIDine 0.1 MG TAB PO PRN (03:13)
[2018-08-07] MEDS: hydrALAZINE 25 MG TAB PO SCH ×3 (05:49→21:07)
[2018-08-07] MEDS: Nitroglycerin 2% Ointment 1 INCH/1 GM Packet TOP SCH ×3 (05:50→17:43)
[2018-08-07] MEDS: Aspirin 81 mg Enteric Coated Tablet PO SCH (08:50)
[2018-08-07] MEDS: busPIRone HCl 10 MG TAB PO SCH ×2 (08:50→21:08)
[2018-08-07] MEDS: Carvedilol 6.25 MG TAB PO SCH ×2 (08:50→17:43)
[2018-08-07] MEDS: Heparin 5,000 UNITS/ML VIAL SC SCH ×3 (08:51→21:09)
[2018-08-07] MEDS: Sevelamer Carbonate 800 MG TAB PO SCH ×4 (08:55→17:43)
[2018-08-07] MEDS ORDERED: Aspirin 325 mg Enteric Coated Tablet PO SCH (09:00)
--- NOTE | 2018-08-07 13:38 | CON ---
DATE OF CONSULTATION: HISTORY: Kyle Barron is a 67-year-old white male, who I evaluated in June 2018. He had previously been seen in August 2015 when he had fallen sustaining a hip fracture. Four months prior to that, he did undergo adenosine Cardiolite testing, which revealed no evidence of ischemia. He also had been hospitalized in the past with heart rates in the 40s and was on carvedilol 25 b.i.d., that was discontinued and his bradycardia resolved. Also, in June 2016, he underwent Cardiolite testing which was normal. When he was hospitalized in June 2018, he had missed dialysis 1 day due to nausea. He then began to develop increased shortness of breath, but denied any chest discomfort. When EMS arrived, pulse oximetry was in the 80s on room air. In the emergency room, he was given DuoNeb, was placed on oxygen. His pulse ox improved to 98%. Throughout all of this, he denied any chest discomfort. He then underwent dialysis with improvement in his shortness of breath. His troponin I increased to 1.493, and it was felt that he probably had a non-STEMI. He underwent cardiac catheterization, which revealed severe global hypokinesis with apical dyskinesis with ejection fraction of 20% to 25%. There was a 70% followed by 80% proximal LAD, 60% mid LAD and 90% apical LAD. There was 90% lesion of the small first diagonal. There was a 50% ramus stenosis, 50% proximal circumflex, which was a small vessel. Right coronary artery had a 30% mid stenosis, 50% distal stenosis, and an 80% stenosis in the right posterior descending. He was seen by Dr. Renteria for consideration of bypass surgery; however, there was concern that he might do poorly with surgery with his severe left ventricular dysfunction. He underwent myocardial viability scanning after discharge (the radiotracer could not be obtained on the weekend). This revealed scarring and absence of viability on a large portion of the inferior wall, apex and a small portion of the distal anterior septal wall. There was a small area in the anterior septal wall that appeared to be viable. He was to come to the office 2 or 3 days after that viability study; however, he never came for followup. He now is admitted with left-sided chest discomfort. This lasted 6 to 7 hours and was continuous. The pain was pleuritic in nature. In the emergency room, he underwent CT of the abdomen and pelvis. This revealed small bilateral effusions and atelectasis, mild anasarca, distention of the urinary bladder, small pericardial effusion, vascular calcifications. At the present time, he denies any discomfort. PAST MEDICAL HISTORY: End-stage renal disease, on dialysis-Dr. Martin has been following, diabetes mellitus, hypertension, hypercholesterolemia, coronary artery disease, history of hepatitis C, anxiety and depression. He also had previous CVA with mild aphasia. MEDICATIONS: 1. Aspirin 81 daily. 2. Atorvastatin 20 at bedtime. 3. Buspirone 10 mg b.i.d. 4. Carvedilol 12.5 mg b.i.d. 5. Hydralazine 50 t.i.d. 6. Prednisone 2 mg at bedtime. 7. Flomax 0.4 daily p.r.n. 8. Renvela 2400 mg t.i.d. 9. Mirtazapine 15 at bedtime. ALLERGIES: MORPHINE. SOCIAL HISTORY: He smoked in the past, but not at the present time. He does not drink. FAMILY HISTORY: Negative for coronary artery disease. REVIEW OF SYSTEMS: A 12-point review of systems is otherwise unremarkable. PHYSICAL EXAMINATION: VITAL SIGNS: Blood pressure 184/84, pulse 71. HEENT: PERRL. NECK: Supple. CHEST: Clear. CARDIAC: S1 and S2 are normal without any S3 or S4. There is a 2/6 systolic murmur, loudest in the right intercostal space. ABDOMEN: Normal bowel sounds without tenderness or organomegaly. EXTREMITIES: Revealed no clubbing, cyanosis, or edema. NEUROLOGICAL: Grossly intact. IMAGING STUDIES: EKG reveals normal sinus rhythm with inverted T-waves in lead I and aVL. LABORATORY DATA: Hemoglobin 10.9, hematocrit 34.2, white count 5200, platelets 132,000. Sodium 141, potassium 5.0, chloride 103, carbon dioxide 23, BUN 63, creatinine 5.77. Troponin I 0.159 and 0.171. IMPRESSION: 1. Atypical chest pain. The pain lasted for 6 or 7 hours, was pleuritic in nature with no significant elevation in his cardiac enzymes. 2. Three-vessel coronary artery disease, felt best treated medically without any significant viability seen on viability study. 3. Non-ST elevation myocardial infarction in June 2018. 4. Severe ischemic cardiomyopathy with ejection fraction of 20% to 25%. 5. End-stage renal disease, noncompliance with dialysis at times. 6. Hypercholesterolemia under poor control. When he was admitted in June, his LDL was 116 and the atorvastatin was increased to 80 mg at bedtime. However, I see he is still taking 20 mg. This will be increased back to 80 at bedtime. 7. Hypertension. 8. Former smoker. 9. History of cerebrovascular accident. 10. History of hepatitis C. PLAN: Atorvastatin will be increased to 80 at bedtime. He will continue to be treated medically. During his last hospitalization, he was discharged for outpatient viability study before we could have a conversation regarding a LifeVest. We did discuss at this time that he is in increased risk for sudden , and eventually, consideration should be given to defibrillator placement; however, at the present time, he should go home with a LifeVest and this will be arranged. There certainly is problem with him not showing for his office appointment and trying to care for him. Job ID: [id number] BRITT
--- NOTE | 2018-08-07 14:54 | HP ---
PRIMARY CARE PROVIDER: Dr. Merchant at [facility]. CHIEF COMPLAINT: Nausea and vomiting. HISTORY OF PRESENT ILLNESS: Mr. Barron is a pleasant 67-year-old gentleman, who was seen at [facility] on . He is a hemodialysis patient, undergoes hemodialysis, and Wednesday. He reports that over the last couple of days he has been having nausea, vomiting, and diarrhea. He reports that all the symptoms resolved on the morning of 08/06/2018. He missed his hemodialysis. He presented to the emergency room because of nausea, vomiting, and diarrhea, but has not had any symptoms since then. On the way to the emergency room, he reports having left-sided chest pain, sharp, 8/10 to 9/10, nonradiating, accompanied by shortness of breath. REVIEW OF SYSTEMS: All other systems reviewed and found to be negative. PAST MEDICAL HISTORY: Coronary artery disease, he was hospitalized at [facility] in early June 2018 and was found to have 3-vessel coronary artery disease. He was seen by cardiovascular surgeon during this hospitalization and was advised myocardial viability study, which he underwent on 06/27/2018, showing scarring and absence of viability in a large portion of the inferior wall, apex, and a small portion of the distal anteroseptal wall. His other medical conditions include end-stage renal disease, on hemodialysis; diabetes mellitus, type 2; CVA with residual speech impairment; chronic hepatitis C; benign essential hypertension; anxiety disorder; and depression. SURGICAL HISTORY: Significant for cardiac catheterization. SOCIAL HISTORY: The patient denies current tobacco use, alcohol use, or recreational drug use. ALLERGIES: MORPHINE. FAMILY HISTORY: No history of premature coronary artery disease. HOME MEDICATIONS: As dictated by Dr. Mauricio on short-stay summary, dated 06/27/2018. CODE STATUS: I discussed his code status. He is a full code. PHYSICAL EXAMINATION: GENERAL: On examination, Mr. Barron is awake and alert, not in acute distress. VITAL SIGNS: Blood pressure is 167/85, pulse 72, respiratory rate 16, and oxygen saturation 100% on room air. He is afebrile. EYES: No scleral icterus, no conjunctival pallor. ENT: Moist mucosal membranes. No oropharyngeal erythema or exudates. NECK: Supple, nontender, trachea is midline. RESPIRATORY: Accessory muscles of breathing are not active. Chest wall movements are symmetric bilaterally. Lungs are clear to auscultation without wheeze, rhonchi, or crepitations. CARDIOVASCULAR: S1 and S2 are heard, regular. Peripheral pulses palpable. No carotid bruit. No pericardial rub. ABDOMEN: Soft, nontender, bowel sounds heard. NEUROLOGIC: Cranial nerves 2 through 12 are intact. MUSCULOSKELETAL: Power is 5/5 in all 4 extremities. SKIN: Multiple tattoos. LYMPHATIC: No cervical lymphadenopathy. PSYCHIATRIC: Normal mood, normal affect, the patient is oriented to person, place, and time. LABORATORY DATA: Mr. Barron's labs and investigations were reviewed. I reviewed his electrocardiogram, which shows T-wave flattening/inversion in the lateral leads. I also reviewed his chest x-ray, which did not show any pulmonary infiltrates. He has normal white count, macrocytic anemia with hemoglobin 10.9, normal platelet count, normal electrolytes, elevated blood urea nitrogen of 63, elevated creatinine of 5.77, and an unremarkable liver profile. Lipase is mildly elevated at 112. Troponin-I is in the indeterminate range at 0.171. ASSESSMENT AND PLAN: Mr. Barron is a pleasant 67-year-old gentleman, who was seen at [facility] on . His problem list includes: 1. Chest pain: He is presenting with chest pain. He has known coronary artery disease. He will be admitted to the hospital on property assessment monitor. We will consult Cardiology Service for opinion and help with management including optimizing his medications for coronary artery disease. 2. End-stage renal disease, on hemodialysis: Nephrology Service being consulted for maintenance hemodialysis. He has missed his dialysis treatment and we will continue it during this hospitalization. 3. Diabetes mellitus, type 2: Start Accu-Cheks and insulin sliding scale. 4. Hypertension: Monitor vital signs, titrate antihypertensives as needed. 5. Chronic hepatitis C: Stable. Many thanks for allowing me to participate in your patient's care. Please feel free to contact me with any questions or concerns. LEVEL OF RISK: High. LEVEL OF COMPLEXITY: High. Job ID: [id number]
--- NOTE | 2018-08-07 17:15 | DIS ---
DATE OF ADMISSION: 08/06/2018 DATE OF DISCHARGE: 08/07/2018 DISCHARGING PHYSICIAN: Dr. Perez. PRIMARY CARE PHYSICIAN: [facility]. ADMITTING DIAGNOSES: 1. Chest pain. 2. Coronary artery disease. 3. Ischemic dilated cardiomyopathy. DISCHARGE DIAGNOSES: 1. Known cardiac chest pain. 2. End-stage renal disease, on hemodialysis. 3. Ischemic dilated cardiomyopathy. 4. Coronary artery disease with recent known [id number] myocardial infarction. 5. Chronic hepatitis C. 6. Essential hypertension. 7. Anxiety. 8. Depression. 9. Diabetes mellitus type 2. 10. Hyperlipidemia. CONSULTS: Cardiology and Nephrology. PROCEDURES: None. SPECIAL IMAGING: CT of the abdomen and pelvis without contrast. HOSPITAL COURSE: This is a 67-year-old male with history as above, who came to the emergency department for atypical chest pain. He has significant risk factors due to recent known tts-DH-[id number] elevation myocardial infarction in June, that required left heart catheterization and ischemic dilated cardiomyopathy. Cardiology and Nephrology were consulted. Cardiology recommends to increase the dose of atorvastatin to 80 mg daily as well as adding Ranexa 500 mg b.i.d. Due to his high-risk for malignant arrhythmias, Cardiology recommended LifeVest. The patient is awaiting LifeVest in stable condition. Once LifeVest is available, he will be discharged home with close followup. He is currently free of chest pain. Cardiac enzymes were negative x3. PHYSICAL EXAMINATION: VITAL SIGNS: Blood pressure 160/77, pulse 68, respirations 18, oxygen saturation 98% on room air, temperature 98.3 Fahrenheit. GENERAL: He is in no distress. Awake, alert, oriented x3. HEAD AND NECK: Pupils are equal, reactive to light. Extraocular muscles are intact. Mucous membranes are moist. Neck is supple. CARDIOVASCULAR: Rhythm and rate irregular. No audible murmurs, rubs, or gallops. PULMONARY: Clear to auscultation bilaterally. No wheezes, rhonchi, or crackles. ABDOMEN: Soft, nontender, nondistended. Positive bowel sounds. EXTREMITIES: No palpable edema. Pulses are symmetric. Range of motion is intact. SKIN: Multiple tattoos. Good moist. NEUROLOGIC: Cranial nerves 2 through 12 are grossly intact. Deep tendon reflexes are normoreflexic. Muscle tone is normal. LABORATORY DATA: Laboratory abnormalities; glucose 119, hemoglobin 11, hematocrit 34. Troponins are 0.17 to 0.159. IMAGING DATA: Imaging study reports are reviewed. EKG reviewed. DISCHARGE DISPOSITION: Home with self care. DISCHARGE CONDITION: Fair, but high-risk for readmission. DISCHARGE DIET: Renal, diabetic, and cardiac diet as tolerated. DISCHARGE ACTIVITY: Increase activity as tolerated. Wear LifeVest at all times. DISCHARGE MEDICATIONS: See medical reconciliation for details. DISCHARGE FOLLOWUP: With primary consumer advocate as directed. With primary care physician in 1 to 2 weeks. DISCHARGE INSTRUCTIONS: The patient was instructed to return to the emergency department if symptoms are worsened. To take his medications as directed. Not to miss any appointments. TIME OF DISCHARGE PLANNIN minutes. Job ID: [id number]
[2018-08-07] MEDS: Atorvastatin Calcium 40 MG TAB PO SCH (21:07)
[2018-08-07] MEDS: Tamsulosin HCl 0.4 MG CAP PO SCH (21:08)
[2018-08-07] MEDS: Mirtazapine 15 MG TAB PO SCH (21:08)
[2018-08-07] MEDS: Prazosin HCl 1 MG CAP PO PRN (21:30)
[2018-08-08] MEDS: Nitroglycerin 2% Ointment 1 INCH/1 GM Packet TOP SCH ×5 (00:30→23:57)
[2018-08-08] MEDS: hydrALAZINE 25 MG TAB PO SCH ×3 (05:57→21:07)
--- NOTE | 2018-08-08 08:48 | HP ---
PRIMARY CARE PROVIDER: Dr. Merchant at [facility]. CHIEF COMPLAINT: Nausea and vomiting. HISTORY OF PRESENT ILLNESS: Mr. Barron is a pleasant 67-year-old gentleman, who was seen at [facility] on August 06, 2018. He was hospitalized at this facility from June 24 of this year for non ST-elevation myocardial infarction. He had cardiac catheterization, which showed diffuse coronary artery disease with left ventricular ejection fraction estimated at 20%. He was seen by Cardiovascular Surgery. At that time, the plan was to obtain viability study. If he has large segments of his ventricles that are not viable, there will be little benefit to high-risk revascularization, according to cardiovascular surgery service. The test could not be done as inpatient because the tracer was not available. He had myocardial perfusion scan on June 27, 2018, as an outpatient. It showed scarring and absence of viability in a large portion of the inferior wall, apex, and a small portion of the distal anteroseptal wall. He had redistribution in a small portion of the anteroseptal wall that was suspicious for an ischemic process. He reports that over the last 2 or 3 days, he has been having nausea, vomiting, and diarrhea. However, on further questioning, he reports that his nausea and vomiting improved this morning. He has not had any bowel movements since coming to the emergency room. He reports that on his way to the emergency room, he developed left-sided chest pain. He describes it as sharp, 9/10, nonradiating, accompanied by shortness of breath, no known aggravating or relieving factors. He denies any fevers or chills. He also reported some abdominal pain, but that has since resolved. He is a hemodialysis patient, undergoes hemodialysis on Wednesday, , and Wednesday. He missed hemodialysis today because he came to the emergency room. Because of patient's ongoing chest pain and his known 3-vessel coronary artery disease, he was referred to hospitalist service for admission. REVIEW OF SYSTEMS: All other systems reviewed and found to be negative. PAST MEDICAL HISTORY: Renal disease, on hemodialysis; hepatitis C; hypertension ; anxiety; depression; diabetes mellitus, coronary artery disease. PAST SURGICAL HISTORY: Cardiac catheterization. SOCIAL HISTORY: The patient reports occasional marijuana use. He denies tobacco use or recreational drug use. FAMILY HISTORY: Neck pain in his mother. ALLERGIES: CURRENT MEDICATIONS: 1. Mirtazapine 15 mg at bedtime. 2. Hydralazine 50 mg 3 times a day. 3. Atorvastatin 20 mg daily. 4. Aspirin 81 mg daily. 5. Tamsulosin 0.4 mg daily. 6. BuSpar 10 mg 2 times a day. 7. Carvedilol 12.5 mg 2 times a day. 8. Duloxetine 20 mg daily. 9. Prazosin 2 mg daily. 10. Vitamin D3 of 2000 units daily. PHYSICAL EXAMINATION: GENERAL: On examination, Mr. Barron is awake and alert, not in acute distress. VITAL SIGNS: Blood pressure is 167/85, pulse 72, respiratory rate 15, and oxygen saturation 100% on room air. He is afebrile. EYES: No scleral icterus, no conjunctival pallor. ENT: Moist mucosal membranes. No oropharyngeal erythema or exudates. NECK: Supple, nontender, trachea is midline. RESPIRATORY: Accessory muscles of breathing are not active. Chest wall movements are symmetric bilaterally. LUNGS: Clear to auscultation without wheeze, rhonchi, or crepitations. CARDIOVASCULAR: S1 and S2 are heard, regular. Peripheral pulses palpable. No carotid bruit. No pericardial rub. ABDOMEN: Soft, nontender, bowel sounds are heard, no hepatomegaly, no splenomegaly. NEUROLOGIC: Cranial nerves 2 through 12 are intact. MUSCULOSKELETAL: Power is 5/5 in all 4 extremities. SKIN: Multiple tattoos. LYMPHATIC: No cervical lymphadenopathy. PSYCHIATRIC: Normal mood, normal affect. The patient is oriented to person, place, and time. LABORATORY DATA: Mr. Barron's labs and investigations were reviewed. Electrocardiogram which shows lateral T-wave inversion. He has not had a chest x -ray in the emergency room. CT scan of the abdomen and pelvis showed small bilateral pleural effusions and atelectasis, findings suggestive of mild anasarca, mildly distended urinary bladder, small pericardial effusion, vascular calcifications and stable fracture involving the L2 vertebral body. He has normal white count, macrocytic anemia with hemoglobin 10.9, normal platelet count, normal electrolytes, elevated blood urea nitrogen of 63, elevated creatinine of 5.77, and indeterminate troponin I of 0.171. Lipase is elevated at 112. ASSESSMENT AND PLAN: Mr. Barron is a pleasant 67-year-old gentleman, who was seen at [facility] on August 06, 2018. His problem list includes: 1. Chest pain: Mr. Barron has known multivessel coronary artery disease. At this point in time, he will likely need optimization of his medications. I will start him on Ranexa and request Cardiology Service input for further optimization of his cardiac medications. 2. Ischemic cardiomyopathy: The patient also has ischemic cardiomyopathy with ventricular ejection fraction of 20% to 25% in June 2018. He is on a beta aiden, we will continue the same. He is not on ITZEL inhibitor or ARB secondary to renal failure. 3. End-stage renal disease, on dialysis: He has missed his dialysis session today. Nephrology Service will be consulted for maintenance hemodialysis. 4. Diabetes mellitus: We will start him on Accu-Cheks and insulin sliding scale. 5. Hypertension: We will monitor vital signs and titrate antihypertensives as needed. 6. Depression: Mild, stable. Many thanks for allowing me to participate in your patient's care. Please feel free to contact me with any questions or concerns. LEVEL OF RISK: Moderate. LEVEL OF COMPLEXITY: Moderate. Job ID: [id number] [facility]
[2018-08-08] MEDS: busPIRone HCl 10 MG TAB PO SCH ×2 (08:57→21:06)
[2018-08-08] MEDS: Heparin 5,000 UNITS/ML VIAL SC SCH ×3 (08:57→21:07)
[2018-08-08] MEDS: Aspirin 81 mg Enteric Coated Tablet PO SCH (08:57)
[2018-08-08] MEDS: Carvedilol 6.25 MG TAB PO SCH ×2 (08:57→17:17)
[2018-08-08] MEDS: Sevelamer Carbonate 800 MG TAB PO SCH ×3 (08:57→17:21)
--- NOTE | 2018-08-08 10:06 | PRG ---
DATE OF SERVICE: 08/08/2018 SUBJECTIVE: The patient noted with the following vital signs. OBJECTIVE: VITAL SIGNS: Afebrile, temperature 97.4, pulse 67, respiratory rate of 16, O2 saturation 97%, and blood pressure 165/77. HEENT: Unremarkable. CARDIOVASCULAR SYSTEM: First and second heart sounds were heard. RESPIRATORY SYSTEM: Clear to auscultation. DIGESTIVE SYSTEM: Revealed a benign abdomen. EXTREMITIES: No peripheral edema. SKIN: No new gross rash. LYMPHATICS: No peripheral lymphadenopathy. IMPRESSION: 1. End-stage renal disease, on hemodialysis. 2. Chest pain. PLAN: 1. Continue current renal supportive measures. 2. Further management to be dependent on the clinical course. Job ID: [id number]
--- NOTE | 2018-08-08 13:29 | PDOC.PN ---
- Subjective Encounter Start Date: 08/08/18 Encounter Start Time: 07:25 CC: CHEST PAIN HPI: This is a 67-year-old male with history as above, who came to the emergency department for atypical chest pain. He has significant risk factors due to recent known udv-VM-enmgsrt elevation myocardial infarction in June, that required left heart catheterization and ischemic dilated cardiomyopathy. Cardiology and Nephrology were consulted. Cardiology recommends to increase the dose of atorvastatin to 80 mg daily as well as adding Ranexa 500 mg b.i.d. Due to his high-risk for malignant arrhythmias, Cardiology recommended LifeVest. The patient is awaiting LifeVest in stable condition. He is currently free of chest pain. Cardiac enzymes were negative x3. SUBJECTIVE; Patient seen and evaluated at bedside. He denies chest pain. Per nurse, lifevest unavailable. No other acute events. ROS; All systems are reviewed and negative except for the ones mentioned above. - Objective Resuscitation Status - Order Detail: 08/06/18 15:24 Resuscitation Status Routine Resuscitation Status: FULL: Full Resuscitation Discussed with: patient MAR Reviewed: Yes Vital Signs & Weight: Vital Signs (12 hours) Temp Pulse Resp BP Pulse Ox 08/08/18 12:32 97.7 F 62 16 151/70 H 96 08/08/18 07:49 97.4 F L 67 16 165/77 H 97 08/08/18 05:57 61 08/08/18 05:56 61 150/70 H 08/08/18 03:34 97.8 F 63 15 152/72 H 97 Weight Weight 132 lb 8 oz I&O: 08/07/18 08/08/18 08/09/18 06:59 06:59 06:59 Intake Total 800 930 240 Output Total 25 Balance 800 905 240 Result Diagrams: 08/06/18 10:21 08/06/18 10:21 Additional Labs: Accuchecks 08/08/18 08/08/18 08/07/18 10:17 03:39 20:40 POC Glucose 149 H 92 106 08/07/18 17:23 POC Glucose 112 H Radiology Reviewed by me: Yes EKG Reviewed by me: Yes Phys Exam - Physical Examination HEENT: PERRLA, moist MMs, oral pharynx no lesions Neck: no nodes, no JVD, supple, full ROM Respiratory: no wheezing, no rales, no rhonchi, clear to auscultation bilateral Cardiovascular: RRR, no significant murmur, no rub Gastrointestinal: soft, non-tender, no distention, positive bowel sounds Musculoskeletal: no edema, pulses present Neurological: non-focal, normal sensation, moves all 4 limbs Psychiatric: normal affect, A&O x 3 Skin: no rash, normal turgor, cap refill <2 seconds Dx/Plan (1) Chest pain Code(s): R07.9 - CHEST PAIN, UNSPECIFIED Status: Acute Qualifiers: Chest pain type: unspecified Qualified Code(s): R07.9 - Chest pain, unspecified Plan: Resolved (2) ESRD on dialysis Code(s): N18.6 - END STAGE RENAL DISEASE; Z99.2 - DEPENDENCE ON RENAL DIALYSIS Status: Chronic (3) Ischemic cardiomyopathy Code(s): I25.5 - ISCHEMIC CARDIOMYOPATHY Status: Chronic Plan: Awaiting lifevest (4) CAD (coronary artery disease) Code(s): I25.10 - ATHSCL HEART DISEASE OF [place] CORONARY ARTERY W/O ANG PCTRS Status: Chronic (5) Hepatitis C Code(s): B19.20 - UNSPECIFIED VIRAL HEPATITIS C WITHOUT HEPATIC COMA Status: Chronic (6) Essential hypertension Code(s): I10 - ESSENTIAL (PRIMARY) HYPERTENSION Status: Chronic (7) Anxiety Code(s): F41.9 - ANXIETY DISORDER, UNSPECIFIED Status: Chronic (8) Depression Code(s): F32.9 - MAJOR DEPRESSIVE DISORDER, SINGLE EPISODE, UNSPECIFIED Status : Chronic (9) Diabetes type 2, controlled Code(s): E11.9 - TYPE 2 DIABETES MELLITUS WITHOUT COMPLICATIONS Status: Chronic (10) Dyslipidemia Code(s): E78.5 - HYPERLIPIDEMIA, UNSPECIFIED Status: Chronic - Plan cont current plan of care Awaiting lifevest CODE; FULL CORE; SCD DISP; OBS PROG;GUARDED CLINICAL STATUS; STABLE EXPECTED DISCHARGE; WHEN LIFEVEST AVAILABLE TOTAL TIME SPENT; 25 MINUTES DATE OF SERVICE; 08/08/2018
[2018-08-08 14:13] VITALS: BMI 17.9
[2018-08-08] MEDS: HYDROcodone/Acetaminophen 10/325 mg Tablet PO PRN ×2 (17:18→20:12)
[2018-08-08] MEDS: Mirtazapine 15 MG TAB PO SCH (21:06)
[2018-08-08] MEDS: Atorvastatin Calcium 40 MG TAB PO SCH (21:06)
[2018-08-08] MEDS: Tamsulosin HCl 0.4 MG CAP PO SCH (21:07)
[2018-08-08] MEDS: Prazosin HCl 1 MG CAP PO PRN (21:16)
[2018-08-09] MEDS: Nitroglycerin 2% Ointment 1 INCH/1 GM Packet TOP SCH ×4 (00:36→17:02)
[2018-08-09] MEDS: HYDROcodone/Acetaminophen 10/325 mg Tablet PO PRN ×5 (00:36→21:40)
[2018-08-09 05:11] LABS: Albumin 2.9 g/dL (3.4-4.8); Anion Gap 19 mmol/L (10-20); BUN (Urea Nitrogen) 66 mg/dL (8.4-25.7); BUN/Creatinine Ratio 10.95; Calc. Creatinine Clearance 10 mL/min (70-130); Calcium 8.2 mg/dL (7.8-10.44); Carbon Dioxide 22 mmol/L (23-31); Chloride 95 mmol/L (98-107); Estimated GFR-MDRD 9; Glucose 113 mg/dL (80-115); Phosphorus 6.3 mg/dL (2.3-4.7); Potassium 5.1 mmol/L (3.5-5.1); Sodium 131 mmol/L (136-145)
[2018-08-09] MEDS: hydrALAZINE 25 MG TAB PO SCH ×3 (06:02→20:27)
[2018-08-09] MEDS: Carvedilol 6.25 MG TAB PO SCH ×2 (07:39→16:10)
[2018-08-09] MEDS: Sevelamer Carbonate 800 MG TAB PO SCH ×3 (07:39→16:10)
[2018-08-09] MEDS: Heparin 5,000 UNITS/ML VIAL SC SCH ×3 (07:39→20:28)
[2018-08-09] MEDS: Aspirin 81 mg Enteric Coated Tablet PO SCH (07:39)
[2018-08-09] MEDS: busPIRone HCl 10 MG TAB PO SCH ×2 (07:39→20:27)
--- NOTE | 2018-08-09 15:30 | PDOC.PN ---
- Subjective Encounter Start Date: 08/09/18 Encounter Start Time: 08:50 CC; CHEST PAIN SUBJECTIVE; PATIENT SEEN AND EVALUATED. NO ACUTE COMPLAINTS. NO ACUTE EVENTS OVERNIGHT. STILL WAITING FOR PLACEMENT AND LIFEVEST ROS; ALL SYSTEMS ARE REVIEWED AND NEGATIVE EXCEPT FOR THE ONES MENTIONED ABOVE - Objective Resuscitation Status - Order Detail: 08/06/18 15:24 Resuscitation Status Routine Resuscitation Status: FULL: Full Resuscitation Discussed with: patient MAR Reviewed: Yes Vital Signs & Weight: Vital Signs (12 hours) Temp Pulse Resp BP BP Pulse Ox 08/09/18 13:35 168/78 H 08/09/18 07:39 168/78 H 08/09/18 07:00 98.3 F 68 16 156/74 H 95 08/09/18 06:02 66 08/09/18 05:59 66 151/70 H 08/09/18 04:16 97.9 F 66 21 H 158/75 H 96 Weight Admit Weight 139 lb 4 oz Weight 135 lb 8 oz I&O: 08/08/18 08/09/18 08/10/18 06:59 06:59 06:59 Intake Total 930 1270 Output Total 25 Balance 905 1270 Result Diagrams: 08/06/18 10:21 08/09/18 04:27 Additional Labs: Accuchecks 08/09/18 08/09/18 08/08/18 10:36 04:20 21:02 POC Glucose 152 H 127 H 158 H 08/08/18 17:02 POC Glucose 241 H Radiology Reviewed by me: Yes EKG Reviewed by me: Yes Phys Exam - Physical Examination HEENT: PERRLA, moist MMs, sclera anicteric, oral pharynx no lesions Neck: no nodes, no JVD, supple, full ROM Respiratory: no wheezing, no rales, no rhonchi Cardiovascular: RRR, no significant murmur, no rub Gastrointestinal: soft, non-tender, no distention, positive bowel sounds Musculoskeletal: no edema, pulses present RLE AV FISTULA Neurological: non-focal, normal sensation, moves all 4 limbs Psychiatric: normal affect, A&O x 3 Skin: no rash, normal turgor, cap refill <2 seconds Deviation from normal: PALLOR. TATTOOS Dx/Plan (1) Chest pain Code(s): R07.9 - CHEST PAIN, UNSPECIFIED Status: Resolved Qualifiers: Chest pain type: unspecified Qualified Code(s): R07.9 - Chest pain, unspecified (2) ESRD on dialysis Code(s): N18.6 - END STAGE RENAL DISEASE; Z99.2 - DEPENDENCE ON RENAL DIALYSIS Status: Chronic (3) Ischemic cardiomyopathy Code(s): I25.5 - ISCHEMIC CARDIOMYOPATHY Status: Chronic (4) CAD (coronary artery disease) Code(s): I25.10 - ATHSCL HEART DISEASE OF [place] CORONARY ARTERY W/O ANG PCTRS Status: Chronic (5) Hepatitis C Code(s): B19.20 - UNSPECIFIED VIRAL HEPATITIS C WITHOUT HEPATIC COMA Status: Chronic (6) Essential hypertension Code(s): I10 - ESSENTIAL (PRIMARY) HYPERTENSION Status: Chronic (7) Anxiety Code(s): F41.9 - ANXIETY DISORDER, UNSPECIFIED Status: Chronic (8) Depression Code(s): F32.9 - MAJOR DEPRESSIVE DISORDER, SINGLE EPISODE, UNSPECIFIED Status : Chronic (9) Diabetes type 2, controlled Code(s): E11.9 - TYPE 2 DIABETES MELLITUS WITHOUT COMPLICATIONS Status: Chronic (10) Dyslipidemia Code(s): E78.5 - HYPERLIPIDEMIA, UNSPECIFIED Status: Chronic - Plan cont current plan of care PATIENT AGREEABLE TO WAIT FOR LIFEVEST. NOW, HIS HOME BURNED DOWN PER HIS . AWAITING [facility] PLACEMENT TEMPORARILY. CODE; FULL CORE; HEPARIN DISP; OBS PROG; GUARDED CLINICAL STATUS; STABLE EXPECTED DISCHARGE; WHEN PLACEMENT AVAILABLE. NOT A SAFE DISCHARGE HOME TOTAL TIME SPENT; 25 MINUTES DATE OF SERVICE; 08/09/2018
--- NOTE | 2018-08-09 17:57 | PRG ---
DATE OF SERVICE: 08/09/2018 SUBJECTIVE: The patient is seen and examined, seems to be doing much better. Noted with the following vital signs. OBJECTIVE: VITAL SIGNS: Afebrile, temperature 97.6, pulse 60, respiratory rate of 20, O2 saturation of 98% with blood pressure 151/67. HEENT: Unremarkable. CARDIOVASCULAR SYSTEM: First and second heart sounds were heard. RESPIRATORY SYSTEM: Clear to auscultation. DIGESTIVE SYSTEM: Revealed a benign abdomen. EXTREMITIES: No peripheral edema. SKIN: No new gross rash. LYMPHATICS: No peripheral lymphadenopathy. IMPRESSION: 1. End-stage renal disease, hemodialysis dependent. 2. Chest pain. 3. Type 2 diabetes. PLAN: 1. The patient to continue hemodialysis per schedule. The patient is due for dialysis today. 2. Further management to be dependent on the clinical course. Job ID: [id number]
[2018-08-09] MEDS: Atorvastatin Calcium 40 MG TAB PO SCH (20:27)
[2018-08-09] MEDS: Tamsulosin HCl 0.4 MG CAP PO SCH (20:27)
[2018-08-09] MEDS: Mirtazapine 15 MG TAB PO SCH (20:28)
[2018-08-09] MEDS: Prazosin HCl 1 MG CAP PO PRN (21:41)
[2018-08-10] MEDS: Nitroglycerin 2% Ointment 1 INCH/1 GM Packet TOP SCH ×5 (00:35→22:55)
[2018-08-10 04:55] LABS: INR-International Normal Ratio 1.1; PTT 34.9 SEC (22.9-36.1); Prothrombin Time 14.1 SEC (12.0-14.7)
[2018-08-10 05:17] LABS: CKMB 5.1 ng/mL (0-6.6); Troponin I 0.104 ng/mL (< 0.028)
[2018-08-10] MEDS: hydrALAZINE 25 MG TAB PO SCH ×3 (06:24→21:03)
[2018-08-10] MEDS: Carvedilol 6.25 MG TAB PO SCH ×2 (07:49→15:44)
[2018-08-10] MEDS: Sevelamer Carbonate 800 MG TAB PO SCH ×3 (07:50→15:44)
[2018-08-10] MEDS: busPIRone HCl 10 MG TAB PO SCH ×2 (07:52→19:49)
[2018-08-10] MEDS: Heparin 5,000 UNITS/ML VIAL SC SCH ×3 (07:52→19:51)
--- NOTE | 2018-08-10 08:04 | CT ---
CT OF HEAD NONCONTRAST: INDICATION: Stroke., weakness. COMPARISON: 12/11/2017. FINDINGS: No intracranial hemorrhage, mass effect, or midline shift. There is mild parenchymal volume loss. C ompensatory dilatation of the ventricular system is present. IMPRESSION: No acute intracranial hemorrhage or mass effect. Nurse Yousif, present during the scan, was notified of the findings, 0438 hours 08/10/2018. CODE CR POS: NWK
[2018-08-10] MEDS: Aspirin 81 mg Enteric Coated Tablet PO SCH (08:44)
--- NOTE | 2018-08-10 09:10 | CT ---
CTA HEAD WITH CONTRAST CTA NECK WITH CONTRAST 3D VOLUME RENDERING: INDICATION: Stroke with weakness, left facial droop, altered mental status. FINDINGS: The imaged aortic arch demonstrates mild vascular calcification. Portions of the origins of the grea t vessels are partially excluded, but otherwise, the visualized proximal great vessels are grossly pa tent. Evaluation of the bilateral cervical internal and concomitant carotid arteries reveals mild sc attered plaque formation without high-grade stenosis or occlusion. There is prominent vascular disea se at each carotid siphon and there is calcific plaque also seen within each petrous segment of the d istal ICA, bilaterally. There is diminutive caliber throughout the left vertebral artery which may b e congenital. The dominant right vertebral artery reveals no high-grade stenosis or occlusion. With in the [place], there is no high-grade stenosis or focal occlusion evident. IMPRESSION: 1. Scattered vascular disease without high-grade stenosis or occlusion. There is moderate multifoca l disease of the distal internal carotid artery, notably the intracranial course of each internal car otid artery bilaterally. 2. Markedly diminutive left vertebral artery which may be congenital. 3. Incidental note of scattered ground-glass opacities of the right upper lobe. Consider imaging fo llowup for continued assessment, as findings are not reliably evaluated on the basis of this exam, pa rtially visualized. Nurse Dodd, present during the scan, was notified of the findings, 0500 hours 08/10/2018. POS: STEWART
[2018-08-10] MEDS ORDERED: ISOVUE-370 76%-LOCM 1 ML ONE (10:57)
--- NOTE | 2018-08-10 12:31 | PDOC.PN ---
- Subjective Encounter Start Date: 08/10/18 Encounter Start Time: 09:20 CC; CHEST PAIN SUBJECTIVE; PATIENT SEEN AND EVALUATED. HE HAS NO ACUTE COMPLAINTS. PER NURSE, PATIENT WAS CONFUSED LAST NIGHT. RAPID CALLED. CT NEGATIVE. NO OTHER ACUTE EVENTS. ROS; ALL SYSTEMS ARE REVIEWED AND NEGATIVE EXCEPT FOR THE ONES MENTIONED ABOVE - Objective Resuscitation Status - Order Detail: 08/06/18 15:24 Resuscitation Status Routine Resuscitation Status: FULL: Full Resuscitation Discussed with: patient MAR Reviewed: Yes Vital Signs & Weight: Vital Signs (12 hours) Temp Pulse Pulse Pulse Pulse Resp Resp 08/10/18 11:25 97.6 F 62 18 08/10/18 09:03 60 69 08/10/18 08:56 60 69 08/10/18 07:05 97.8 F 62 18 08/10/18 06:24 63 08/10/18 04:12 71 20 08/10/18 03:59 97.4 F L 68 18 BP BP BP BP BP BP Pulse Ox 08/10/18 11:25 158/68 H 98 08/10/18 09:03 158/70 H 148/69 H 08/10/18 08:56 158/70 H 148/69 H 08/10/18 07:05 162/75 H 99 08/10/18 06:24 143/66 H 08/10/18 04:12 170/76 H 08/10/18 03:59 148/72 H 98 Pulse Ox 08/10/18 11:25 08/10/18 09:03 08/10/18 08:56 08/10/18 07:05 08/10/18 06:24 08/10/18 04:12 99 08/10/18 03:59 Weight Admit Weight 139 lb 4 oz Weight 135 lb 8 oz I&O: 08/09/18 08/10/18 08/11/18 06:59 06:59 06:59 Intake Total 1270 1400 Output Total 275 75 Balance 1270 1125 -75 Result Diagrams: 08/06/18 10:21 08/09/18 04:27 Additional Labs: Accuchecks 08/10/18 08/10/18 08/09/18 10:46 04:02 20:51 POC Glucose 128 H 92 107 08/09/18 16:57 POC Glucose 96 Radiology Reviewed by me: Yes EKG Reviewed by me: Yes Phys Exam - Physical Examination HEENT: PERRLA, moist MMs, sclera anicteric Neck: no nodes, no JVD, supple Respiratory: no wheezing, no rales Cardiovascular: RRR, no significant murmur, no rub Gastrointestinal: soft, non-tender, no distention Musculoskeletal: no edema, pulses present Neurological: non-focal, normal sensation, moves all 4 limbs Psychiatric: normal affect, A&O x 3 Skin: no rash, normal turgor, cap refill <2 seconds Deviation from normal: PALLOR Dx/Plan (1) Chest pain Code(s): R07.9 - CHEST PAIN, UNSPECIFIED Status: Resolved Qualifiers: Chest pain type: unspecified Qualified Code(s): R07.9 - Chest pain, unspecified (2) ESRD on dialysis Code(s): N18.6 - END STAGE RENAL DISEASE; Z99.2 - DEPENDENCE ON RENAL DIALYSIS Status: Chronic (3) Ischemic cardiomyopathy Code(s): I25.5 - ISCHEMIC CARDIOMYOPATHY Status: Chronic (4) CAD (coronary artery disease) Code(s): I25.10 - ATHSCL HEART DISEASE OF [place] CORONARY ARTERY W/O ANG PCTRS Status: Chronic (5) Hepatitis C Code(s): B19.20 - UNSPECIFIED VIRAL HEPATITIS C WITHOUT HEPATIC COMA Status: Chronic (6) Essential hypertension Code(s): I10 - ESSENTIAL (PRIMARY) HYPERTENSION Status: Chronic (7) Anxiety Code(s): F41.9 - ANXIETY DISORDER, UNSPECIFIED Status: Chronic (8) Depression Code(s): F32.9 - MAJOR DEPRESSIVE DISORDER, SINGLE EPISODE, UNSPECIFIED Status : Chronic (9) Diabetes type 2, controlled Code(s): E11.9 - TYPE 2 DIABETES MELLITUS WITHOUT COMPLICATIONS Status: Chronic (10) Dyslipidemia Code(s): E78.5 - HYPERLIPIDEMIA, UNSPECIFIED Status: Chronic (11) Confusion Code(s): R41.0 - DISORIENTATION, UNSPECIFIED Status: Acute Plan: NOT CLEAR. 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 PENDING PLACEMENT. NO LIVEABLE HOME. PENDING [place] APPROVAL FOR PLACEMENT CODE;FULL CORE; HEPARIN DISP; MED SURG PROG; GUARDED CLINICAL STATUS; STABLE EXPECTED DISCHARGE; SEE ABOVE TOTAL TIME SPENT; 28 MINUTES DATE OF SERVICE; 08/10/2018
[2018-08-10] MEDS: HYDROcodone/Acetaminophen 10/325 mg Tablet PO PRN (15:44)
--- NOTE | 2018-08-10 16:40 | PRG ---
DATE OF SERVICE: 08/10/2018 SUBJECTIVE: The patient is seen and examined. OBJECTIVE: VITAL SIGNS: Noted with the following vital signs; afebrile, temperature 98.2, pulse 66, respiratory rate of 16, and O2 saturation of 97% with blood pressure of 167/76. HEENT: Unremarkable. CARDIOVASCULAR SYSTEM: First and second heart sounds were heard. RESPIRATORY SYSTEM: Clear to auscultation. DIGESTIVE SYSTEM: Revealed a benign abdomen. EXTREMITIES: No peripheral edema. SKIN: No new gross rash. LYMPHATICS: No peripheral lymphadenopathy. IMPRESSION: 1. End-stage renal disease, on hemodialysis. 2. Transient mental status change. 3. Ischemic cardiomyopathy. PLAN: 1. The patient is to continue with current dialysis schedule. 2. Further management will be dependent on the clinical course. Job ID: [id number]
[2018-08-10] MEDS: Prazosin HCl 1 MG CAP PO PRN (19:49)
[2018-08-10] MEDS: Mirtazapine 15 MG TAB PO SCH (19:49)
[2018-08-10] MEDS: Atorvastatin Calcium 40 MG TAB PO SCH (19:50)
[2018-08-10] MEDS: Tamsulosin HCl 0.4 MG CAP PO SCH (19:50)
[2018-08-11] MEDS: Nitroglycerin 2% Ointment 1 INCH/1 GM Packet TOP SCH ×3 (05:01→16:41)
[2018-08-11] MEDS: hydrALAZINE 25 MG TAB PO SCH ×3 (05:01→21:17)
[2018-08-11 05:03] LABS: Hemoglobin 10.5 g/dL (14.0-18.0); Mean Corpuscular HGB CONC 33.4 g/dL (32.0-36.0); Mean Corpuscular Volume 95.6 fL (78.0-98.0); Mean Platelet Volume 7.7 fL (7.4-10.4); Platelet Count 113 thou/uL (130-400); Red Blood Cell (RBC) Count 3.29 mill/uL (4.70-6.10); White Blood Cell (WBC) Count 6.4 thou/uL (4.8-10.8)
[2018-08-11 05:18] LABS: Albumin 3.5 g/dL (3.4-4.8); Anion Gap 16 mmol/L (10-20); BUN (Urea Nitrogen) 53 mg/dL (8.4-25.7); BUN/Creatinine Ratio 9.41; Calc. Creatinine Clearance 11 mL/min (70-130); Calcium 8.8 mg/dL (7.8-10.44); Carbon Dioxide 26 mmol/L (23-31); Chloride 95 mmol/L (98-107); Estimated GFR-MDRD 10; Glucose 103 mg/dL (80-115); Phosphorus 5.5 mg/dL (2.3-4.7); Potassium 5.3 mmol/L (3.5-5.1); Sodium 132 mmol/L (136-145)
[2018-08-11] MEDS: Carvedilol 6.25 MG TAB PO SCH ×2 (09:27→16:37)
[2018-08-11] MEDS: busPIRone HCl 10 MG TAB PO SCH ×2 (09:28→20:28)
[2018-08-11] MEDS: Heparin 5,000 UNITS/ML VIAL SC SCH ×3 (09:28→20:28)
[2018-08-11] MEDS: Aspirin 81 mg Enteric Coated Tablet PO SCH (09:28)
[2018-08-11] MEDS: Sevelamer Carbonate 800 MG TAB PO SCH ×3 (09:28→16:38)
--- NOTE | 2018-08-11 10:13 | PRG ---
DATE OF SERVICE: 08/11/2018 SUBJECTIVE: The patient is seen and examined at dialysis renal care. Noted with the following vital signs. OBJECTIVE: VITAL SIGNS: Afebrile, temperature 97.8, pulse 61, respiratory rate of 12 to 15, O2 saturation of 98% with blood pressure 154/72. HEENT: Unremarkable. CARDIOVASCULAR SYSTEM: First and second heart sounds were heard. RESPIRATORY SYSTEM: Clear to auscultation. DIGESTIVE SYSTEM: Revealed a benign abdomen with positive bowel sounds. EXTREMITIES: No peripheral edema. SKIN: No new gross rash. LYMPHATICS: No peripheral lymphadenopathy. IMPRESSION: End-stage renal disease, on hemodialysis. PLAN: 1. The patient currently undergoing dialysis by schedule. We will continue with these. 2. Further management will be dependent on the clinical course. Job ID: [id number]
[2018-08-11] MEDS: HYDROcodone/Acetaminophen 10/325 mg Tablet PO PRN ×3 (13:01→21:16)
--- NOTE | 2018-08-11 14:40 | PDOC.PN ---
- Subjective Encounter Start Date: 08/11/18 Encounter Start Time: 11:25 CC; CHEST PAIN SUBJECTIVE; PATIENT SEEN AND EVAL. NO ACUTE COMPLAINTS. RECEIVING HD. PER NURSE , NO OTHER ACUTE EVENTS OVERNIGHT ROS; ALL SYSTEMS ARE REVIEWED AND NEGATIVE EXCEPT FOR THE ONES MENTIONED ABOVE. - Objective Resuscitation Status - Order Detail: 08/06/18 15:24 Resuscitation Status Routine Resuscitation Status: FULL: Full Resuscitation Discussed with: patient Vital Signs & Weight: Vital Signs (12 hours) Temp Pulse Resp BP BP Pulse Ox 08/11/18 12:57 70 142/65 H 08/11/18 12:54 97.3 F L 70 16 142/65 H 99 08/11/18 09:27 151/67 H 08/11/18 07:31 97.8 F 61 12 154/72 H 98 08/11/18 05:01 62 151/67 H 08/11/18 04:57 97.9 F 62 15 151/67 H 96 Weight Admit Weight 139 lb 4 oz Weight 128 lb 9.6 oz I&O: 08/10/18 08/11/18 08/12/18 06:59 06:59 06:59 Intake Total 1400 1220 Output Total 275 400 Balance 1125 820 Result Diagrams: 08/11/18 04:42 08/11/18 04:42 Additional Labs: Accuchecks 08/11/18 08/10/18 08/10/18 11:02 20:47 16:42 POC Glucose 95 130 H 116 H Radiology Reviewed by me: Yes EKG Reviewed by me: Yes Phys Exam - Physical Examination HEENT: PERRLA, moist MMs, sclera anicteric Neck: no nodes, no JVD, supple Respiratory: no wheezing, no rales, no rhonchi Cardiovascular: RRR, no significant murmur, no rub Gastrointestinal: soft, non-tender, no distention, positive bowel sounds Musculoskeletal: no edema, pulses present Neurological: non-focal, normal sensation, moves all 4 limbs Psychiatric: normal affect, A&O x 3 Skin: no rash, normal turgor, cap refill <2 seconds Dx/Plan (1) Chest pain Code(s): R07.9 - CHEST PAIN, UNSPECIFIED Status: Resolved Qualifiers: Chest pain type: unspecified Qualified Code(s): R07.9 - Chest pain, unspecified (2) ESRD on dialysis Code(s): N18.6 - END STAGE RENAL DISEASE; Z99.2 - DEPENDENCE ON RENAL DIALYSIS Status: Chronic Plan: CONTINUE DIALYSIS PER RENAL RECS (3) Ischemic cardiomyopathy Code(s): I25.5 - ISCHEMIC CARDIOMYOPATHY Status: Chronic (4) CAD (coronary artery disease) Code(s): I25.10 - ATHSCL HEART DISEASE OF [place] CORONARY ARTERY W/O ANG PCTRS Status: Chronic (5) Hepatitis C Code(s): B19.20 - UNSPECIFIED VIRAL HEPATITIS C WITHOUT HEPATIC COMA Status: Chronic (6) Essential hypertension Code(s): I10 - ESSENTIAL (PRIMARY) HYPERTENSION Status: Chronic (7) Anxiety Code(s): F41.9 - ANXIETY DISORDER, UNSPECIFIED Status: Chronic (8) Depression Code(s): F32.9 - MAJOR DEPRESSIVE DISORDER, SINGLE EPISODE, UNSPECIFIED Status : Chronic (9) Diabetes type 2, controlled Code(s): E11.9 - TYPE 2 DIABETES MELLITUS WITHOUT COMPLICATIONS Status: Chronic (10) Dyslipidemia Code(s): E78.5 - HYPERLIPIDEMIA, UNSPECIFIED Status: Chronic (11) Confusion Code(s): R41.0 - DISORIENTATION, UNSPECIFIED Status: Resolved - Plan cont current plan of care AWAITING [place] APPROVAL OF PLACEMENT. CONTINUE CURRENT CARE. CODE; FULL CORE: HEPARIN DIPS; OBS PROG; GUARDED CLINICAL STATUS; STABLE EXPECTED DISCHARGE; SEE ABOVE TOTAL TIME SPENT; 22 MINUTES DATE OF SERVICE; 08/11/2018
[2018-08-11] MEDS: Nitroglycerin 0.4 MG TAB (25 Tab Bottle) PO PRN (20:21)
[2018-08-11] MEDS: Mirtazapine 15 MG TAB PO SCH (20:28)
[2018-08-11] MEDS: Atorvastatin Calcium 40 MG TAB PO SCH (20:28)
[2018-08-11] MEDS: Tamsulosin HCl 0.4 MG CAP PO SCH (20:28)
[2018-08-11] MEDS: Prazosin HCl 1 MG CAP PO PRN (21:19)
[2018-08-12] MEDS: Nitroglycerin 2% Ointment 1 INCH/1 GM Packet TOP SCH ×4 (00:06→17:16)
--- NOTE | 2018-08-12 00:08 | CON ---
DATE OF CONSULTATION: 08/11/2018 CONSULTING PHYSICIAN: Hospitalist Service. IMPRESSION: 1. Probable transient ischemic attack with transient dysarthria. 2. Progressive weakness secondary to neuropathy. 3. End-stage renal disease. 4. Diabetes. 5. Aspirin failure. PLAN: 1. Add Plavix. 2. Placement given his is no longer able to take care for him. HISTORY OF PRESENT ILLNESS: Mr. Barron is a 67-year-old male with multiple medical problems. He reports a 40-pound weight loss over the last several months. He has become progressively weaker and having difficulty walking. He also has lower back pain. He was admitted for chest pain workup. He was noted to have some transient slurred speech and possible left facial droop. Stroke alert was called. CT of the brain did not show any acute changes. CT angiogram shows multiple areas of scattered narrowing without complete occlusions. His echocardiogram shows an ejection fraction of 20% to 25%. He has not had any further stroke symptoms. We started Plavix last night. PAST MEDICAL HISTORY: As listed above. ALLERGIES: MORPHINE. SOCIAL HISTORY: No tobacco or alcohol use. FAMILY HISTORY: Noncontributory. REVIEW OF SYSTEMS: 10-system review of systems is otherwise unremarkable. PHYSICAL EXAMINATION: GENERAL: He is cachectic appearing, middle-aged man, lying in bed, in no distress. VITAL SIGNS: Have been stable. He is afebrile. HEENT: Pupils are equal. Conjunctivae clear. Oropharynx clear. NECK: Supple. No lymphadenopathy. EXTREMITIES: No cyanosis or edema. Marked muscle atrophy present. NEUROLOGIC: He was alert and cooperative. His speech was fluent, but the quality was bit dysarthric and little challenging to understand at times. Cranial nerve exam showed left facial droop. Motor exam shows some diffuse weakness distally with 4-/5 strength in the intrinsic muscles of the hands as well as in the feet. Good antigravity strength in both legs. Gait was not tested. Sensation had showed diminished proprioception in his feet. SUMMARY: This is a gentleman, who appears to have had a minor stroke despite aspirin. I would go ahead and continue the Plavix. He has fairly significant neuropathy resulting in muscle wasting and weakness, probably little that can be done other than physical therapy and they are currently working on placement thinking his workup is complete at this point. Job ID: [id number]
[2018-08-12] MEDS: hydrALAZINE 25 MG TAB PO SCH ×2 (05:23→13:12)
--- NOTE | 2018-08-12 07:09 | EKG ---
Test Reason : Blood Pressure : / mmHG Vent. Rate : 067 BPM Atrial Rate : 067 BPM P-R Int : 182 ms QRS Dur : 122 ms QT Int : 488 ms P-R-T Axes : 038 -24 098 degrees QTc Int : 515 ms Normal sinus rhythm Non-specific intra-ventricular conduction delay T wave abnormality, consider lateral ischemia Abnormal ECG When compared with ECG of 06-AUG-2018 22:04, (Unconfirmed) No significant change was found Confirmed by BARBRA SNYDER ([id number]) on 08/12/2018 7:09:16 AM Referred By: HILARY Confirmed By:BARBRA SNYDER
[2018-08-12] MEDS: Carvedilol 6.25 MG TAB PO SCH ×2 (08:06→16:21)
[2018-08-12] MEDS: busPIRone HCl 10 MG TAB PO SCH (08:06)
[2018-08-12] MEDS: Aspirin 81 mg Enteric Coated Tablet PO SCH (08:07)
[2018-08-12] MEDS: Sevelamer Carbonate 800 MG TAB PO SCH ×3 (08:07→16:22)
[2018-08-12] MEDS: Heparin 5,000 UNITS/ML VIAL SC SCH ×2 (08:08→14:39)
[2018-08-12] MEDS ORDERED: Clopidogrel Bisulfate 75 MG TAB PO SCH (09:00)
--- NOTE | 2018-08-12 15:00 | PRG ---
DATE OF SERVICE: 08/12/2018 SUBJECTIVE: The patient is seen and examined at the bedside. He is quite well and he wants to go home. OBJECTIVE: VITAL SIGNS: Blood pressure is 144/64, pulse is 58, temperature is 97.9, respirations 16, and O2 saturation is 100% on room air. HEENT: His head is atraumatic and normocephalic. Eyes are PERRLA. Sclerae are nonicteric. Oral mucosa is moist. NECK: Supple. LUNGS: Clear. HEART: S1 and S2, normal. ABDOMEN: Soft, nontender. EXTREMITIES: No clubbing, cyanosis, or edema. NEUROLOGIC: He follows my commands. He moves his all four extremities. His mental condition is at his baseline. LABORATORY DATA: Glycemia is ranging from 134 to 171. IMPRESSION: 1. Chest pain, resolved, atypical, most likely noncardiac in nature. 2. Severe ischemic cardiomyopathy with LVEF of 20% to 25%. 3. End-stage renal disease, noncompliance with dialysis. 4. Hypertension. 5. History of CVA. 6. History of hepatitis C. 7. History of [id number]-[place]-[id number] myocardial infarction in June 2018. 8. Three-vessel coronary artery disease, treated medically without any significant viability seen on viability study. 9. Possible transient ischemic attack with transient dysarthria, resolved. 10. Progressive weakness secondary to neuropathy. 11. Diabetes mellitus. 12. Aspirin failure. At this point, we are going to continue the same regimen. We are waiting for the placement. Continue PT and OT, continue DVT prophylaxis. Job ID: [id number]
[2018-08-12 16:04] VITALS: BP 124/73; TEMP 97.7
--- NOTE | 2018-08-12 21:53 | PRG ---
DATE OF SERVICE: 08/12/2018 SUBJECTIVE: The patient is seen and examined. Noted with the following vital signs. OBJECTIVE: VITAL SIGNS: Afebrile, temperature 97.7, pulse 76, respiratory rate of 20, and O2 saturation 98% with blood pressure 124/73. HEENT: Unremarkable. CARDIOVASCULAR SYSTEM: First and second heart sounds were heard. RESPIRATORY SYSTEM: Clear to auscultation. DIGESTIVE SYSTEM: Revealed a benign abdomen with positive bowel sounds. EXTREMITIES: No peripheral edema. SKIN: No new gross rash. LYMPHATICS: No peripheral lymphadenopathy. IMPRESSION: End-stage renal disease, hemodialysis dependent, dialyzed successfully yesterday. PLAN: 1. The patient to continue with current regimen of hemodialysis. 2. From a Renal standpoint, the patient is due for discharge. Job ID: [id number]
--- NOTE | 2018-08-13 02:50 | DIS ---
DATE OF ADMISSION: 08/06/2018 DATE OF DISCHARGE: 08/12/2018 DISCHARGE DIAGNOSES: 1. Chest pain, resolved, atypical, most likely noncardiac in nature with 3 sets of cardiac enzymes negative. 2. Severe ischemic cardiomyopathy with left ventricular ejection fraction of 20% to 25%. 3. End-stage renal disease, noncompliance with dialysis. 4. Hypertension. 5. History of cerebrovascular accident. 6. History of hepatitis C. 7. History of non-ST elevation myocardial infarction in June 2018. 8. Probable transient ischemic attack with transient dysarthria, resolved. 9. Three-vessel coronary artery disease, treated medically without any significant viability seen on viability study. 10. Aspirin failure. 11. Diabetes mellitus. 12. Progressive weakness secondary to neuropathy. CONSULTANTS: 1. Dr. Martin, Nephrology Service. 2. Dr. Gerson Hoskins, Cardiology Service. 3. Dr. Rc Argueta, Neurology Service. HOSPITAL COURSE: The patient was a 67-year-old male came to the emergency room with an atypical chest pain. He had significant risk factors due to recent known non-ST segment elevation myocardial infarction in June that required left heart catheterization and ischemic dilated cardiomyopathy. Cardiology and Nephrology were consulted. Cardiology recommended to the increase the dose of atorvastatin to 80 mg daily as well as adding Ranexa 500 mg twice a day. Due to his high risk of malignant arrhythmias, Cardiology recommended a LifeVest, but the patient did not qualify for this because of his mental status and apparently he would not be able to do things which are required for patients who are LifeVest and he was not qualified for that. His cardiac enzymes were done and they were negative x3. He was seen by paper ruler, Dr. Hoskins in this hospitalization. He had an episode of dysarthria, which was felt to be probably transient ischemic attack. He had workup done with the CT of the brain, which did not show any acute changes, but CT angiogram showed multiple areas of scattered narrowing without complete occlusion. He was placed on Plavix by Dr. Argueta, his neurologist during this hospitalization. Also, echocardiogram was done which showed LVEF of 20% to 25%. He has fairly significant neuropathy resulting in muscle wasting and weakness probably a little that can be done other than physical therapy, so he is discharged to rehabilitation center at [facility] after he is approved by the [place] [facility] for PT and OT. His diet at the time of discharge is heart healthy and diabetic diet. Activities as tolerated. DISCHARGE MEDICATIONS: 1. Aspirin 81 mg once a day. 2. Buspirone 10 mg twice a day. 3. Carvedilol 12.5 mg twice a day. 4. Vitamin D3 of 2000 units once a day. 5. Apresoline 50 mg three times a day. 6. Mirtazapine 15 mg at bedtime. 7. Prazosin 2 mg at bedtime. 8. Sevelamer 2400 mg three times a day. 9. Flomax 0.4 mg at bedtime. 10. Atorvastatin 80 mg at bedtime. 11. Clopidogrel 75 mg once a day. 12. Hydrocodone/acetaminophen 10/325 mg 3 times a day. 13. Nitroglycerin 0.4 mg, Nitrostat tablets q.5 minute p.r.n. as needed up to three tablets. 14. Ranexa 500 mg twice a day. DISCHARGE INSTRUCTIONS: He is going to have PT and OT in the rehab center and he is going to follow up with his primary care physician after his discharge from the rehab. Job ID: [id number]
== END 2018-08-12 20:45 ==
LOC: ERS 09:42 → 2SW 16:13
PROVIDERS: ADMIT Internal Medicine; ATTEND Internal Medicine
DX: R07.89 Other chest pain (principal); R19.7 Diarrhea, unspecified; I25.2 Old myocardial infarction; I25.10 Atherosclerotic heart disease of native coronary artery without angina pectoris; F41.9 Anxiety disorder, unspecified; F32.9 Major depressive disorder, single episode, unspecified; I25.5 Ischemic cardiomyopathy; I12.0 Hypertensive chronic kidney disease with stage 5 chronic kidney disease or end stage renal disease; E11.22 Type 2 diabetes mellitus with diabetic chronic kidney disease; N18.6 End stage renal disease; E78.00 Pure hypercholesterolemia, unspecified; I69.320 Aphasia following cerebral infarction; B18.2 Chronic viral hepatitis C; R41.0 Disorientation, unspecified; E11.40 Type 2 diabetes mellitus with diabetic neuropathy, unspecified; R53.1 Weakness; Z99.2 Dependence on renal dialysis; Z79.82 Long term (current) use of aspirin; Z79.899 Other long term (current) drug therapy; Z88.5 Allergy status to narcotic agent; Z87.891 Personal history of nicotine dependence; Z91.15 Patient's noncompliance with renal dialysis
CPT/HCPCS: 36415; 36416; 70450; 70496; 70498; 71046; 74176; 80053; 80069; 82550; 82553; 83690; 84484; 85025; 85027; 85610; 85730; 90935; 93005; 93010; 96361; 96374; G0257; G0378; J1644; J2405; Q9966

== ENCOUNTER 2018-08-17 03:30 | Emergency (ER) | payer MEDICARE ==
[2018-08-17] MEDS ORDERED: Oxymetazoline HCl 0.05% ( 15 ML ) NASAL SCH (03:45)
[2018-08-17] MEDS ORDERED: Lidocaine 1% w/Epinephrine 1:100K 20 ML VIAL ONE (05:11)
[2018-08-17 05:12] LABS: #Basophils 0.1 thou/uL (0.0-0.2); #Eosinphils 0.1 thou/uL (0.0-0.7); #Monocytes 0.5 thou/uL (0.11-0.59); #Neutrophils 5.8 thou/uL (1.40-6.50); %Basophils 0.9 % (0.0-1.0); %Eosinophils 1.9 % (0.0-10.0); %Lymphocytes 13.6 % (21.0-51.0); %Neutrophils 76.6 % (42.0-75.0); Hemoglobin 12.1 g/dL (14.0-18.0); Mean Corpuscular HGB CONC 33.8 g/dL (32.0-36.0); Mean Corpuscular Hemoglobin 32.1 pg (27.0-31.0); Mean Corpuscular Volume 94.9 fL (78.0-98.0); Mean Platelet Volume 8.3 fL (7.4-10.4); Platelet Count 145 thou/uL (130-400); RBC Distribution Width 12.9 % (11.5-14.5); Red Blood Cell (RBC) Count 3.78 mill/uL (4.70-6.10); White Blood Cell (WBC) Count 7.6 thou/uL (4.8-10.8)
[2018-08-17 05:32] LABS: ALT (SGPT) 22 U/L (8-55); AST (SGOT) 36 U/L (5-34); Alkaline Phosphatase 47 U/L (40-150); Anion Gap 15 mmol/L (10-20); BUN (Urea Nitrogen) 27 mg/dL (8.4-25.7); Bilirubin, Total 0.8 mg/dL (0.2-1.2); CK (CPK) 502 U/L (30-200); Calc. Creatinine Clearance 0 mL/min (70-130); Calcium 9.6 mg/dL (7.8-10.44); Carbon Dioxide 28 mmol/L (23-31); Chloride 95 mmol/L (98-107); Estimated GFR-MDRD 17; Globulin 3.4 g/dL (2.4-3.5); Glucose 201 mg/dL (80-115); Potassium 4.1 mmol/L (3.5-5.1); Protein, Total 7.4 g/dL (5.8-8.1); Sodium 134 mmol/L (136-145)
--- NOTE | 2018-08-17 07:28 | CT ---
CT CHEST WITH CONTRAST CT ABDOMEN AND PELVIS WITH CONTRAST CT THORACIC SPINE WITH CONTRAST CT LUMBAR SPINE WITH CONTRAST 3D VOLUME RENDERING PERFORMED: Date: 08/17/18 INDICATION: Injury, fall with pain. FINDINGS: Reference is made to CT imaging exams from 06/12/16 and 08/06/18. There are scattered, nonspecific patchy opacities in the lungs, which involve the bilateral upper and lower lobes, with lower lobe predominance. No pleural effusion or pneumothorax. The thoracoabdominal aorta is atraumatic in appearance. No acute pathology of the solid abdominal organs is evident. Ther e is incomplete assessment of the bowel without enteric contrast opacification. A large volume of ret ained fecal material in the colon is present. No free air. There is significant distention of the arabella pacified urinary bladder. Prominent streak artifact from bilateral hip prosthesis limits visualizatio n of the pelvis due to extensive metallic streak artifact. Evaluation of the thoracolumbar spine redemonstrates chronic, significant deformity of the lumbar spi ne, with a stable L2 fracture dating back to 06/12/16 exam, with severe central height loss and a fra cture plane traversing the vertebral segment. There is mild superior end plate irregularity with Schm orl's node formation at T3, and to a lesser extent involving T1, indicating chronic processes. Stable dextroscoliosis of the lumbar spine. Additional chronic-appearing osseous deformities are similar in appearance. There is generalized soft tissue edema, which may relate to generalized third spacing of fluid. Correlate clinically. IMPRESSION: 1. Bilateral upper and lower lobe opacities, preferentially volume overload. This may be on the basi s of an atypical infection/inflammation or, alternatively, sequelae from aspiration pneumonitis. Brennon mmend clinical correlation and follow-up. 2. Significant deformity of the lumbar spine is redemonstrated. 3. Significant distention of the urinary bladder. Correlate clinically. 4. Findings indicative of a diffuse third spacing of fluid. POS: [facility]
--- NOTE | 2018-08-17 08:04 | CT ---
PRELIMINARY REPORT/[facility]/EMERGENCY AFTER HOURS PROCEDURE: EXAM: CT Cervical Spine Without Contrast EXAM DATE/TIME: 08/17/2018 3:56 AM CLINICAL HISTORY: 67 years old, male; Injury or trauma; Initial encounter; Blunt trauma; Patient HX: PT had unwitnessed fall about 45 mins ago. PT has laceration to nose and PT reports back and head pain. PT is on plavix and aspirin. TECHNIQUE: Imaging protocol: Axial computed tomography images of the cervical spine without contrast. COMPARISON: No relevant prior studies available. FINDINGS: Vertebrae: On axial CT images, no definite acute fracture is visible. Apparent old mild compression deformities T1 and T3. 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 Sagittal and coronal reconstructions show no acute fracture or subluxation. Mild to moderate degenerative disc changes and facet joint arthritis at multiple levels. Discs/Spinal canal/Neural foramina: No definite/significant disc herniation by CT, MRI could be more sensitive if clinically indicated. Lungs: Lung apices appear essentially unremarkable. IMPRESSION: 1. No definite acute fracture or subluxation by CT. 2. Other findings discussed above. Thank you for allowing us to participate in the care of your patient. Dictated and Authenticated by: Morris Hameed MD 08/17/2018 4:42 AM Central Time ([place] & [place]) FINAL REPORT EMERGENCY AFTER HOURS CERVICAL SPINE CT SCAN: Date: 08/17/18 Time: 0359 hours FINDINGS/IMPRESSION: Developmental fusion changes at C3-C4. Multilevel disc osteophytosis. No acute fracture or facet disl ocation. Report in agreement with preliminary report given on-call by [email or web address]. POS: [facility]
--- NOTE | 2018-08-17 08:07 | CT ---
PRELIMINARY REPORT/[facility]/EMERGENCY AFTER HOURS PROCEDURE: EXAM: CT Head Without Contrast EXAM DATE/TIME: 08/17/2018 3:56 AM CLINICAL HISTORY: 67 years old, male; Injury or trauma; Initial encounter; Blunt trauma (contusions or hematomas); Leisa ent HX: PT had unwitnessed fall about 45 mins ago. PT has laceration to nose and PT reports back and head pain. PT is on plavix and aspirin. TECHNIQUE: Imaging protocol: Axial computed tomography images of the head/brain without contrast. COMPARISON: No relevant prior studies available. FINDINGS: Brain: No acute intracranial hemorrhage or mass effect. There is mild, relatively symmetrical decreased attenuation in the periventricular white matter, like ly from microvascular disease. No definite acute infarct by CT. Ventricles: Ventricle size is normal for age. Bones/joints: No definite acute skull fracture. Sinuses: Moderate fluid in the sphenoid sinus. Small amount of fluid in the maxillary sinuses. Included paranasal sinuses otherwise appear essentially clear. Mastoid air cells: No significant acute finding. Soft tissues: Evidence for soft tissue injury/scalp hematoma in the frontal region. Vasculature: Vascular calcifications noted in the internal carotid and vertebral basilar systems. IMPRESSION: 1. No acute intracranial hemorrhage or mass effect. 2. Other findings discussed above. 3. Please see subsequent CT Facial Bone report for evaluation of the facial bones. Thank you for allowing us to participate in the care of your patient. Dictated and Authenticated by: Morris Hameed MD 08/17/2018 4:32 AM Central Time ([place] & [place]) FINAL REPORT EMERGENT AFTER HOURS CT BRAIN WITHOUT IV CONTRAST: Date: 08/17/2018 Time: 3:58 a.m. FINDINGS/IMPRESSION: No significant acute intracranial process. Fluid within the sinuses with some soft tissue gas. Report in agreement with preliminary report given on-call by Judith. POS: [facility]
--- NOTE | 2018-08-17 08:29 | CT ---
PRELIMINARY REPORT/[facility]/EMERGENCY AFTER HOURS PROCEDURE: EXAM: CT Maxillofacial Without Contrast EXAM DATE/TIME: 08/17/2018 3:56 AM CLINICAL HISTORY: 67 years old, male; Injury or trauma; Initial encounter; Blunt trauma (contusions or hematomas); Leisa ent HX: PT had unwitnessed fall about 45 mins ago. PT has laceration to nose and PT reports back and head pain. PT is on plavix and aspirin. TECHNIQUE: Imaging protocol: Axial computed tomography images of the face without intravenous contrast. COMPARISON: No relevant prior studies available. FINDINGS: Orbits: Orbital contents appear intact/unremarkable. Sinuses: Moderate fluid in the sphenoid sinus. Small amounts of fluid in the maxillary sinuses. Included paranasal sinuses otherwise appear essentially clear. Bones/joints: No definite evidence of acute facial bone fracture. Soft tissues: Left frontal soft tissue swelling/hematoma. IMPRESSION: 1. No definite acute facial bone/orbital fracture by CT. 2. Paranasal sinus findings as discussed above. 3. Other findings discussed above. Thank you for allowing us to participate in the care of your patient. Dictated and Authenticated by: Morris Hameed MD 08/17/2018 4:45 AM Central Time ([place]) FINAL REPORT EMERGENT AFTER HOURS CT FACIAL BONES CT WITH IV CONTRAST: Date: 08/17/2018 Time: 04:01 a.m. FINDINGS/IMPRESSION: Fluid within the sinuses and some mucus within the posterior nasopharynx. Right-sided nasal bone sof t tissue swelling. Left frontal soft tissue swelling. Report in agreement with preliminary report given on-call by Tangela. POS: [facility]
[2018-08-17] MEDS ORDERED: ISOVUE-370 76%-LOCM 1 ML ONE (14:36)
== END 2018-08-17 06:30 | disposition home or self-care (01) ==
LOC: ERS 03:30
DX: S01.81XA Laceration without foreign body of other part of head, initial encounter (principal); R04.0 Epistaxis; I25.2 Old myocardial infarction; E11.9 Type 2 diabetes mellitus without complications; F32.9 Major depressive disorder, single episode, unspecified; Z79.82 Long term (current) use of aspirin; Z79.891 Long term (current) use of opiate analgesic; Z79.899 Other long term (current) drug therapy; W17.89XA Other fall from one level to another, initial encounter
CPT/HCPCS: 12014; 30901; 70450; 70486; 71260; 72125; 74177; 80053; 82550; 85025; 93005; J2001; Q9966

== ENCOUNTER 2018-08-25 13:43 | Emergency (ER) | payer MEDICARE ==
[2018-08-25] MEDS ORDERED: HYDROcodone/Acetaminophen 10/325 mg Tablet ONE (14:37)
== END 2018-08-25 16:18 ==
LOC: ERS 13:43
DX: S32.402A Unspecified fracture of left acetabulum, initial encounter for closed fracture (principal); E11.9 Type 2 diabetes mellitus without complications; I25.2 Old myocardial infarction; Z79.899 Other long term (current) drug therapy; W18.30XA Fall on same level, unspecified, initial encounter
CPT/HCPCS: 99284